=== PATIENT | female | born 1940 | race Caucasian/White ===

== ENCOUNTER 2017-12-02 13:08 | Emergency (ER) | payer OTHER, SELFPAY ==
[2017-12-02] VITALS (7 sets, daily range): BP systolic 156–182; BP diastolic 54–94; PULSE 72–100; RESP 14–28; TEMP 36.9; O2SAT 98–100
--- NOTE | 2017-12-02 14:11 | DI.RAD.S_ITS ---
PROCEDURE: XR CHEST 2V INDICATIONS: shortness of breath TECHNIQUE: 2 views of the chest were acquired. COMPARISON: None. FINDINGS: Surgical changes and devices: Sternotomy mediastinal postoperative changes. Lungs and pleura: No pleural effusions or pneumothorax. Lungs are clear. Hyperinflation most consistent with emphysema. Mediastinum: Mediastinal contours are normal. Heart size is normal. Bones and chest wall: No suspicious bony abnormalities. Soft tissues appear unremarkable. IMPRESSION: No radiographic evidence of acute cardiopulmonary pathology. Hyperinflation most consistent with emphysema. Dictated by: Freddy Figueroa M.D. on 12/02/2017 at 14:39 Approved by: Freddy Figueroa M.D. on 12/02/2017 at 14:40
[2017-12-02 14:46] LABS: Add Manual Diff / Slide Review NO; Basophils Percent Auto 0.8 % (0-2); Eosinophils Percent Auto 0.5 % (2-4); Hematocrit 40.3 % (36-46); Lymphocytes Percent Auto 8.7 % (25-40); Mean Corpuscular HGB Conc 34.6 % (30-36); Mean Corpuscular Hemoglobin 34.7 PG (26-34); Mean Corpuscular Volume 100.2 fL (80-100); Monocytes Percent Auto 8.2 % (3-14); Neutrophils Absolute Auto 4900 /uL (3000-5900); Neutrophils Percent Auto 81.8 % (50-75); Platelet Count 384 X10^3/uL (150-400); Red Blood Cell Count 4.02 X10^6/uL (4.0-5.2); Red Cell Distribution Width 14.5 % (11.6-14.8); White Blood Cell Count 5.9 X10^3/uL (4.5-11.0)
[2017-12-02 14:57] LABS: Alanine Aminotransferase 22 IU/L (9-52); Albumin Globulin Ratio 1.7 (1.0-2.8); Alkaline Phosphatase 109 U/L (38-126); Aspartate Aminotransferase 29 IU/L (14-36); Bilirubin Total 0.6 mg/dL (0.2-1.3); Blood Urea Nitrogen 18 mg/dL (7-17); Calcium 9.4 mg/dL (8.4-10.2); Carbon Dioxide 25 mmol/L (22-32); Chloride 102 mmol/L (98-107); Estimated Glomerular Filt Rate 53.6 mL/min (>60); Globulin 2.9 g/dL (1.7-4.1); Glucose 112 mg/dL (80-110); HEMOLYSIS < 15 (0-50); Potassium 3.5 mmol/L (3.4-5.1); Sodium 140 mmol/L (137-145); Total Protein 7.9 g/dL (6.3-8.2)
[2017-12-02 15:11] LABS: D Dimer < 200 ng/mL (<230)
[2017-12-02 17:10] LABS: Troponin I < 0.012 ng/mL (0.01-0.034)
--- NOTE | 2017-12-02 18:27 | ED_ITS ---
HPI - SOB/Dyspnea General Chief Complaint: Shortness of Breath/Dyspnea Stated Complaint: really nervous and shakey and dizzy History of Present Illness HPI 68-year-old female with hypothyroidism, HTN, and HLD presents for evaluation of intermittent episodes of shortness of breath. Patient reports that for an indeterminate (sometime) she feels short of breath when she is laying supine before falling asleep, this will cause significant anxiety and she will sit up with increased work of breathing before symptoms gradually resolved. Today the patient had an episode while sitting outside, she had markedly increased work of breathing but was without wheezing, denies choking, cough, fevers, chills, chest pain, history of DVT or PE. No history of reactive airway disease. Symptoms have fully resolved at the time of evaluation. Symptoms lasted 30-60 minutes. M/S/F/SocHx notable for: please see HPI; remainder reviewed with patient and in chart. ROS: Negative constitutional, eye, cardiovascular, pulmonary, GI, , MSK, skin , neurologic, psychiatric, endocrine unless noted in the HPI. Exam Gen: Pleasant, non-toxic appearing, resting comfortably. HEENT: NC, AT, PEERL, EOMI, trachea midline. Resp: Clear to auscultation bilaterally, normal work of breathing. Card: RRR with no M/R/G, no crackles in lung bases, no pedal edema, no JVD appreciated. GI: NT/ND Vascular: Both ankles, calves, and thighs of equal size, no calf tenderness to palpation bilaterally. MSK: No chest wall TTP. No visible deformities, strength and tone WNL. Skin: Normal color with no visible lesions. Neuro: AO x 3, no facial asymmetry, vision and hearing WNL. Psych: Mood and affect appropriate. Labs / Imaging (pertinent): WBC 5.9, HB 14.0, sodium 140, potassium 3.5, lactic 1.0, d-dimer <200 troponin (4:30 PM) less than 0.012. EKG: SR at 76 bpm, no [place] segment depressions, no new ST segment changes, new LBBB, or T-wave changes that would suggest acute ischemia. CXR: no radiographic evidence of acute cardiopulmonary pathology. Hyperinflation most consistent with emphysema. MDM Previous chart, nursing note, and vitals reviewed. A: 68-year-old female with hypothyroidism, HTN, and HLD presents for evaluation of intermittent episodes of shortness of breath. DDx: pneumonia, reactive airway disease / COPD / Asthma, bronchitis, pneumothorax, anxiety, PE, CHF, pleural effusion, pericardial effusion, ACS. Evaluation: * Pneumonia - as the CXR is without focal infiltrate and the patient is afebrile and without significant sputum production, doubt pneumonia. * Reactive airway disease / COPD / Asthma - patient with good air movement and an absence of wheezing. * Bronchitis - doubt given the lack of productive cough or systemic symptoms.( suspect bronchitis with - cough > 5 days, absence of fever, wheezing, productive cough, sore throat, rhinorrhea, malaise, headache). * Pneumothorax - no evidence by CXR. * Anxiety - patient clinically without evidence of appreciable anxiety on exam. * PE - low clinical suspicion given history and alternate diagnosis, further risk stratification (e.g.) Well's not indicated. * CHF - no evidence by auscultation, CXR, and absence of pedal edema. * Pleural effusion - CXR without evidence of effusions. * Pericardial effusion - doubt pericardial effusion given an alternate diagnosis , the lack of cardiomegaly on CXR and normal heart sounds. * ACS - doubt ACS given a non-ischemic EKG and negative initial troponin, repeat troponin pending at time of patient care transfer to Dr. Montano, the oncoming overnight provider. Impression: shortness of breath (please reference below for remainder of encounter information) Related Data Home Medications Medication Instructions Recorded Confirmed ferrous sulfate 65 mg PO BID #0 08/29/10 12/02/17 Previous Rx's Medication Instructions Recorded cyanocobalamin (vitamin B-12) 1,000 mcg PO QDAY #30 tab 04/28/17 amlodipine [Norvasc] 10 mg PO Q DAY #90 tab 05/31/17 simvastatin [Zocor] 20 mg PO Q DAY #90 tab 05/31/17 levothyroxine [Synthroid] 75 mcg PO QDAY #90 tab 09/20/17 Allergies Allergy/AdvReac Type Severity Reaction Status Date / Time Penicillins [PENICILLINS] Allergy Unknown CHILDHOOD Verified 12/02/17 13:16 PFSH Surgical History History of tonsillectomy Status post appendectomy Status post arthroscopy Status post colonoscopy Status post hysterectomy Family History Father Diabetes mellitus Hypertension Mother Hypertension Social History Smoking Status: Former smoker Exam Initial Vital Signs Initial Vital Signs: Vital Signs Temperature 98.4 F 12/02/17 13:12 Pulse Rate 100 H 12/02/17 13:12 Respiratory Rate 28 H 12/02/17 13:12 Blood Pressure 182/93 H 12/02/17 13:12 Pulse Oximetry 100 12/02/17 13:12 Course Orders Ordered: ED Orders 12/02/17 14:00 D Dimer Stat 12/02/17 14:11 Consult to Respiratory Therapy Evaluate & Treat XR chest 2V Stat EKG-12 Lead Stat 12/02/17 14:30 Complete Blood Count AUTO DIFF Stat Comprehensive Metabolic Panel Stat Lactate (Lactic Acid) Stat 12/02/17 16:30 Trop I [Troponin I] Stat 12/02/17 18:26 Troponin I Stat Vital Signs - 8 hr 12/02/17 13:12 12/02/17 14:05 12/02/17 15:07 Temperature 98.4 F Pulse Rate 100 H 73 73 Respiratory Rate 28 H 15 18 Blood Pressure 182/93 H Blood Pressure [Right Arm] 169/71 H 158/54 H Pulse Oximetry 100 98 100 12/02/17 15:55 12/02/17 16:56 12/02/17 18:08 Temperature Pulse Rate 80 72 93 H Respiratory Rate 18 28 H 18 Blood Pressure Blood Pressure [Right Arm] 156/75 H 175/76 H 158/80 H Pulse Oximetry 98 99 99 MDM - SOB/Dyspnea Lab Data Result diagrams: 12/02/17 14:30 12/02/17 14:30 Lab Results 12/02/17 12/02/17 12/02/17 Range/Units 14:00 14:30 14:30 WBC 5.9 (4.5-11.0) X10^3/uL RBC 4.02 (4.0-5.2) X10^6/uL Hgb 14.0 (12.0-16.0) g/dL Hct 40.3 (36-46) % MCV 100.2 H (80-100) fL MCH 34.7 H (26-34) PG MCHC 34.6 (30-36) % RDW 14.5 (11.6-14.8) % Plt Count 384 (150-400) X10^3/uL Neut % (Auto) 81.8 H (50-75) % Lymph % (Auto) 8.7 L (25-40) % Dougherty % (Auto) 8.2 (3-14) % Eos % (Auto) 0.5 L (2-4) % Baso % (Auto) 0.8 (0-2) % Neut # (Auto) 4900 (6224-9278) /uL D-Dimer < 200 (<230) ng/mL Sodium 140 (137-145) mmol/L Potassium 3.5 (3.4-5.1) mmol/L Chloride 102 (98-107) mmol/L Carbon Dioxide 25 (22-32) mmol/L BUN 18 H (7-17) mg/dL Creatinine 1.00 (0.52-1.04) mg/dL Estimated GFR 53.6 L (>60) mL/min BUN/Creatinine Ratio 18.0 (6-22) Glucose 112 H (80-110) mg/dL Lactate (0.7-2.1) mmol/L Calcium 9.4 (8.4-10.2) mg/dL Total Bilirubin 0.6 (0.2-1.3) mg/dL AST 29 (14-36) IU/L ALT 22 (9-52) IU/L Alkaline Phosphatase 109 (38-126) U/L Troponin I (0.01-0.034) ng/mL Total Protein 7.9 (6.3-8.2) g/dL Albumin 5.0 (3.5-5.0) g/dL Globulin 2.9 (1.7-4.1) g/dL Albumin/Globulin Ratio 1.7 (1.0-2.8) 12/02/17 12/02/17 Range/Units 14:30 16:30 WBC (4.5-11.0) X10^3/uL RBC (4.0-5.2) X10^6/uL Hgb (12.0-16.0) g/dL Hct (36-46) % MCV (80-100) fL MCH (26-34) PG MCHC (30-36) % RDW (11.6-14.8) % Plt Count (150-400) X10^3/uL Neut % (Auto) (50-75) % Lymph % (Auto) (25-40) % Dougherty % (Auto) (3-14) % Eos % (Auto) (2-4) % Baso % (Auto) (0-2) % Neut # (Auto) (9129-2669) /uL D-Dimer (<230) ng/mL Sodium (137-145) mmol/L Potassium (3.4-5.1) mmol/L Chloride (98-107) mmol/L Carbon Dioxide (22-32) mmol/L BUN (7-17) mg/dL Creatinine (0.52-1.04) mg/dL Estimated GFR (>60) mL/min BUN/Creatinine Ratio (6-22) Glucose (80-110) mg/dL Lactate 1.0 (0.7-2.1) mmol/L Calcium (8.4-10.2) mg/dL Total Bilirubin (0.2-1.3) mg/dL AST (14-36) IU/L ALT (9-52) IU/L Alkaline Phosphatase (38-126) U/L Troponin I < 0.012 (0.01-0.034) ng/mL Total Protein (6.3-8.2) g/dL Albumin (3.5-5.0) g/dL Globulin (1.7-4.1) g/dL Albumin/Globulin Ratio (1.0-2.8) Discharge Plan Departure Prescriptions: No Action ferrous sulfate 325 mg (65 mg iron) Tablet 65 mg PO BID Qty: 0 RF: 0 cyanocobalamin (vitamin B-12) 1,000 MCG tablet extended release 1,000 mcg PO QDAY Qty: 30 RF: 0 amlodipine [Norvasc] 10 MG tablet 10 mg PO Q DAY Qty: 90 RF: 3 simvastatin [Zocor] 20 MG tablet 20 mg PO Q DAY Qty: 90 RF: 3 levothyroxine [Synthroid] 75 mcg tablet 75 mcg PO QDAY Qty: 90 RF: 0
[2017-12-02 19:43] LABS: Troponin I < 0.012 ng/mL (0.01-0.034)
== END 2017-12-02 20:10 | disposition home or self-care (01) ==
PROVIDERS: Emergency Provider Emergency Medicine; PCP Family Medicine
DX: R06.02 Shortness of breath (principal)
CPT/HCPCS: 36415; 36591; 71046; 80053; 83605; 84484; 85025; 85379; 93005; 99283; 99285

== ENCOUNTER → 2017-12-26 09:38 | Outpatient (CLI) | payer OTHER, SELFPAY ==
[2017-12-26 12:00] LABS: Cholesterol 218 mg/dL (140-199); Triglycerides 125 mg/dL (35-150)
[2017-12-26 12:11] LABS: HDL Cholesterol 117 mg/dL (40-60); LDL Cholesterol Calculated 76 mg/dL (<100)
[2017-12-26 12:14] LABS: Free T3, Triiodothyronine Free 1.67 pg/mL (2.77-5.27); Free T4, Direct Thyroxine 0.85 ng/dL (0.78-2.19)
== END ==
PROVIDERS: PCP Family Medicine; Visit Provider Family Medicine
DX: E03.9 Hypothyroidism, unspecified (principal); E78.5 Hyperlipidemia, unspecified
CPT/HCPCS: 36415; 80061; 84439; 84443; 84481

== ENCOUNTER → 2018-02-22 11:56 | Outpatient (CLI) | payer OTHER, SELFPAY ==
--- NOTE | 2018-02-22 12:00 | DI.RAD.S_ITS ---
PROCEDURE: XR TIBIA FIBULA RT 2V INDICATIONS: Soft tissue infection overlying tibia TECHNIQUE: 2 views of the tibia and fibula were acquired. COMPARISON: None. FINDINGS: Bones: No fractures or dislocations. No suspicious bony lesions. No periosteal reaction or osseous erosive changes. Soft tissues: No suspicious soft tissue calcifications or masses. No soft tissue gas. IMPRESSION: No jocelin evidence of osteomyelitis. Plain film radiographs can be insensitive to osteomyelitis during the initial 15 days of the disease process. If there is clinical concern for osteomyelitis, then three-phase nuclear medicine bone scan is warranted. Dictated by: Lyssa Ochoa MD, PhD on 02/22/2018 at 12:07 Approved by: Lyssa Ochoa MD, PhD on 02/22/2018 at 12:08
== END ==
PROVIDERS: PCP Family Medicine; Visit Provider Physician Assistant
DX: L03.115 Cellulitis of right lower limb (principal)
CPT/HCPCS: 73590

== ENCOUNTER → 2018-03-24 09:59 | Outpatient (CLI) | payer OTHER, SELFPAY ==
[2018-03-24 11:43] LABS: Free T3, Triiodothyronine Free 1.65 pg/mL (2.77-5.27); Free T4, Direct Thyroxine 0.89 ng/dL (0.78-2.19)
== END ==
PROVIDERS: PCP Family Medicine; Visit Provider Family Medicine
DX: E03.9 Hypothyroidism, unspecified (principal)
CPT/HCPCS: 36415; 84439; 84443; 84481

== ENCOUNTER → 2018-03-26 16:16 | Outpatient (CLI) | payer OTHER, SELFPAY | PROVIDERS: PCP Family Medicine; Visit Provider Physician Assistant | DX: R10.9 Unspecified abdominal pain (principal) | CPT/HCPCS: 87086 ==

== ENCOUNTER → 2018-05-26 09:18 | Outpatient (CLI) | payer OTHER, SELFPAY ==
[2018-05-26 09:56] LABS: Add Manual Diff / Slide Review NO; Basophils Absolute Auto 0 /uL (0-100); Basophils Percent Auto 1.2 % (0-2); Eosinophils Absolute Auto 100 /uL (0-450); Eosinophils Percent Auto 1.5 % (2-4); Hematocrit 37.5 % (36-46); Hemoglobin 12.3 g/dL (12.0-16.0); Lymphocytes Absolute Auto 600 /uL (1100-4500); Lymphocytes Percent Auto 13.6 % (25-40); Mean Corpuscular HGB Conc 32.8 % (30-36); Mean Corpuscular Hemoglobin 31.8 PG (26-34); Monocytes Absolute Auto 400 /uL (0-900); Monocytes Percent Auto 9.8 % (3-14); Neutrophils Absolute Auto 3100 /uL (1500-7000); Neutrophils Percent Auto 73.9 % (50-75); Platelet Count 379 X10^3/uL (150-400); Red Blood Cell Count 3.87 X10^6/uL (4.0-5.2); Red Cell Distribution Width 13.7 % (11.6-14.8); White Blood Cell Count 4.2 X10^3/uL (4.5-11.0)
[2018-05-26 10:21] LABS: Alanine Aminotransferase 27 IU/L (9-52); Albumin 4.6 g/dL (3.5-5.0); Albumin Globulin Ratio 1.6 (1.0-2.8); Alkaline Phosphatase 87 U/L (38-126); Aspartate Aminotransferase 33 IU/L (14-36); Bilirubin Total 0.4 mg/dL (0.2-1.3); Blood Urea Nitrogen 23 mg/dL (7-17); Calcium 9.1 mg/dL (8.4-10.2); Carbon Dioxide 27 mmol/L (22-32); Chloride 103 mmol/L (98-107); Cholesterol 188 mg/dL (140-199); Estimated Glomerular Filt Rate 53.5 mL/min (>60); Globulin 2.8 g/dL (1.7-4.1); Glucose 107 mg/dL (80-110); HDL Cholesterol 92 mg/dL (40-60); HEMOLYSIS < 15 (0-50); LDL Cholesterol Calculated 71 mg/dL (<100); Potassium 3.7 mmol/L (3.4-5.1); Sodium 141 mmol/L (137-145); Total Protein 7.4 g/dL (6.3-8.2); Triglycerides 127 mg/dL (35-150)
[2018-05-26 10:54] LABS: HEMOLYSIS < 15 (0-50); Iron 40 ug/dL (37-170)
[2018-05-26 11:06] LABS: Percent Iron Saturation 10 % (15-50); Total Iron Binding Capacity 384 ug/dL (265-497); Transferrin 326 mg/dL (206-381)
[2018-05-26 11:15] LABS: Free T4, Direct Thyroxine 1.62 ng/dL (0.78-2.19)
[2018-05-26 11:25] LABS: Folate 7.1 ng/mL (2.76-20.0); Vitamin B12 815 pg/mL (239-931)
[2018-05-26 13:29] LABS: Appearance Urine UA CLEAR; Bilirubin Urine UA NEGATIVE (NEGATIVE); Color Urine UA YELLOW; Glucose Urine UA NEGATIVE (Negative); Ketones Urine UA NEGATIVE (NEGATIVE); Leukocyte Esterase Urine UA NEGATIVE (NEGATIVE); Nitrite Urine UA NEGATIVE (Negative); Occult Blood Urine UA NEGATIVE (Negative); Protein Urine UA NEGATIVE (Negative); Specific Gravity Urine UA 1.015 (1.000-1.035); Urobilinogen Urine UA 0.2 E.U./dL (0.2)
== END ==
PROVIDERS: PCP Family Medicine; Visit Provider Family Medicine
DX: D64.9 Anemia, unspecified (principal); E03.9 Hypothyroidism, unspecified; E78.5 Hyperlipidemia, unspecified; Z87.19 Personal history of other diseases of the digestive system
CPT/HCPCS: 36415; 80053; 80061; 81003; 82607; 82746; 83540; 83550; 84439; 84443; 84481; 85025

== ENCOUNTER → 2018-05-30 11:23 | Outpatient (CLI) | payer OTHER, SELFPAY ==
[2018-05-30 13:37] LABS: Occult Blood 1 Negative (Negative)
== END ==
PROVIDERS: PCP Family Medicine; Visit Provider Family Medicine
DX: D64.9 Anemia, unspecified (principal); Z87.19 Personal history of other diseases of the digestive system
CPT/HCPCS: 82270

== ENCOUNTER → 2019-01-21 09:22 | Outpatient (CLI) | payer OTHER, SELFPAY ==
[2019-01-21 11:40] LABS: Free T3, Triiodothyronine Free 4.93 pg/mL (2.77-5.27); Free T4, Direct Thyroxine 2.46 ng/dL (0.78-2.19)
[2019-01-21 11:54] LABS: Thyroid Stimulating Hormone < 0.02 uIU/mL (0.47-4.68)
== END ==
PROVIDERS: PCP Family Medicine; Visit Provider Family Medicine
DX: E03.9 Hypothyroidism, unspecified (principal)
CPT/HCPCS: 84439; 84443; 84481

== ENCOUNTER → 2019-06-10 09:02 | Outpatient (CLI) | payer OTHER, SELFPAY ==
[2019-06-10 10:07] LABS: Add Manual Diff / Slide Review NO; Basophils Absolute Auto 0 /uL (0-100); Basophils Percent Auto 1.1 % (0-2); Eosinophils Absolute Auto 100 /uL (0-450); Eosinophils Percent Auto 2.2 % (2-4); Hematocrit 38.8 % (36-46); Hemoglobin 13.3 g/dL (12.0-16.0); Lymphocytes Absolute Auto 800 /uL (1100-4500); Lymphocytes Percent Auto 22.1 % (25-40); Mean Corpuscular HGB Conc 34.1 % (30-36); Mean Corpuscular Hemoglobin 31.6 PG (26-34); Mean Corpuscular Volume 92.5 fL (80-100); Monocytes Absolute Auto 400 /uL (0-900); Monocytes Percent Auto 11.6 % (3-14); Neutrophils Absolute Auto 2200 /uL (1500-7000); Platelet Count 308 X10^3/uL (150-400); White Blood Cell Count 3.5 X10^3/uL (4.5-11.0)
[2019-06-10 10:16] LABS: Alanine Aminotransferase 15 IU/L (<35); Albumin 4.6 g/dL (3.5-5.0); Albumin Globulin Ratio 1.5 (1.0-2.8); Alkaline Phosphatase 149 U/L (38-126); Aspartate Aminotransferase 26 IU/L (14-36); Bilirubin Total 0.6 mg/dL (0.2-1.3); Blood Urea Nitrogen 20 mg/dL (7-17); Calcium 9.5 mg/dL (8.4-10.2); Carbon Dioxide 25 mmol/L (22-32); Chloride 105 mmol/L (98-107); Cholesterol 215 mg/dL (140-199); Estimated Glomerular Filt Rate 53.3 mL/min (>60); Glucose 115 mg/dL (80-110); HDL Cholesterol 97 mg/dL (40-60); HEMOLYSIS < 15 (0-50); LDL Cholesterol Calculated 80 mg/dL (<100); Potassium 3.6 mmol/L (3.4-5.1); Sodium 140 mmol/L (137-145); Total Protein 7.6 g/dL (6.3-8.2); Triglycerides 188 mg/dL (35-150)
[2019-06-10 10:59] LABS: Free T3, Triiodothyronine Free 3.69 pg/mL (2.77-5.27)
[2019-06-10 11:13] LABS: Thyroid Stimulating Hormone < 0.02 uIU/mL (0.47-4.68)
== END ==
PROVIDERS: Family Medicine; PCP Nurse Practitioner; Visit Provider Nurse Practitioner
DX: D64.9 Anemia, unspecified (principal); E03.9 Hypothyroidism, unspecified; E78.5 Hyperlipidemia, unspecified; I10 Essential (primary) hypertension
CPT/HCPCS: 36415; 80053; 80061; 84439; 84443; 84481; 85025

== ENCOUNTER → 2019-10-28 09:22 | Outpatient (CLI) | payer OTHER, SELFPAY ==
[2019-10-28 11:00] LABS: Alanine Aminotransferase 13 IU/L (<35); Albumin 4.6 g/dL (3.5-5.0); Albumin Globulin Ratio 1.8 (1.0-2.8); Alkaline Phosphatase 146 U/L (38-126); Aspartate Aminotransferase 26 IU/L (14-36); BUN Creatinine Ratio 18.4 (6-22); Bilirubin Total 0.5 mg/dL (0.2-1.3); Blood Urea Nitrogen 18 mg/dL (7-17); Calcium 9.6 mg/dL (8.4-10.2); Carbon Dioxide 24 mmol/L (22-32); Chloride 104 mmol/L (98-107); Cholesterol 192 mg/dL (140-199); Estimated Glomerular Filt Rate 54.6 mL/min (>60); Globulin 2.5 g/dL (1.7-4.1); Glucose 105 mg/dL (80-110); HDL Cholesterol 99 mg/dL (40-60); HEMOLYSIS < 15 (0-50); LDL Cholesterol Calculated 68 mg/dL (<100); Potassium 4.3 mmol/L (3.4-5.1); Sodium 138 mmol/L (137-145); Total Protein 7.1 g/dL (6.3-8.2); Triglycerides 123 mg/dL (35-150)
[2019-10-28 11:09] LABS: Free T3, Triiodothyronine Free 2.96 pg/mL (2.77-5.27); Free T4, Direct Thyroxine 1.39 ng/dL (0.78-2.19)
[2019-10-28 11:22] LABS: Thyroid Stimulating Hormone 0.24 uIU/mL (0.47-4.68)
== END ==
PROVIDERS: PCP Nurse Practitioner; Referring Provider Nurse Practitioner; Visit Provider Nurse Practitioner
DX: D64.9 Anemia, unspecified (principal); E03.9 Hypothyroidism, unspecified; E78.5 Hyperlipidemia, unspecified; I10 Essential (primary) hypertension; R89.9 Unspecified abnormal finding in specimens from other organs, systems and tissues
CPT/HCPCS: 36415; 80053; 80061; 84439; 84443; 84481

== ENCOUNTER → 2020-02-09 08:48 | Outpatient (CLI) | payer OTHER, SELFPAY ==
[2020-02-09 10:24] LABS: Thyroid Stimulating Hormone 2.15 uIU/mL (0.47-4.68)
[2020-04-06 07:08] LABS: Fecal Immunochemical Test Positive (Negative)
== END ==
PROVIDERS: PCP Nurse Practitioner; Referring Provider Nurse Practitioner; Visit Provider Nurse Practitioner
DX: E03.9 Hypothyroidism, unspecified (principal); Z79.899 Other long term (current) drug therapy
CPT/HCPCS: 36415; 82274; 84443

== ENCOUNTER 2020-03-24 16:49 | Emergency (ER) | payer OTHER, SELFPAY ==
[2020-03-24] VITALS (7 sets, daily range): BP systolic 162–194; BP diastolic 69–84; PULSE 82–96; RESP 12–28; TEMP 36.8; O2SAT 94–100
--- NOTE | 2020-03-24 17:04 | ED_ITS ---
HPI - Anxiety <Keren Licona, DO - Last Filed: 03/28/20 08:10> General Chief Complaint: Anxiety Stated Complaint: panic attack Time Seen by Provider: 03/24/20 17:04 Source: patient Mode of arrival: Wheelchair Limitations: no limitations History of Present Illness HPI narrative: 79-year-old female comes to the emergency department complaint of anxiety. Patient states she feels nervous, jittery, anxious and just not herself. She noticed a little bit yesterday but mostly today. She states she does not really have any stressors or anything that should make her feel this way. She and her son live together. She denies any headache, vision changes, no chest pain or shortness of breath. No nausea, no vomiting no diarrhea or constipation. No frequency, dysuria or urgency. No new numbness, tingling or weakness. She denies any issues with rashes. She will get lightheaded when she goes from a sitting or lying to standing position quickly this is been a longstanding issue. She does feel a little lightheaded at times today, she states that we for just a 2nd and then will quickly go away. She does not feel like she is going to pass out, does not feeling vertigo just lightheaded or like a buzzing in her head. She does take medication for dyslipidemia, thyroid and hypertension. She states she does have some memory issues. She has had appendectomy and carotid endarterectomy. No tobacco, 1 alcoholic drink daily, no illicit. Related Data Previous Rx's Medication Instructions Recorded amlodipine 10 mg tablet 10 mg PO Q DAY #90 tab 02/18/20 cyanocobalamin (vitamin B-12) 1,000 mcg PO DAILY #90 cap 02/18/20 1,000 mcg capsule donepezil 5 mg tablet 5 mg PO DAILY #90 tab 02/18/20 ferrous sulfate 325 mg (65 mg 325 mg PO BID #180 tab 02/18/20 iron) tablet levothyroxine 75 mcg capsule 75 mcg PO DAILY #90 cap 02/18/20 omeprazole 20 mg capsule,delayed 20 mg PO DAILY #90 cap 02/18/20 release simvastatin 20 mg tablet 20 mg PO Q DAY #90 tab 02/18/20 Allergies Allergy/AdvReac Type Severity Reaction Status Date / Time Penicillins [PENICILLINS] Allergy Unknown CHILDHOOD Verified 03/26/20 11:06 Review of Systems <Keren Licona DO - Last Filed: 03/28/20 08:10> Review of Systems ROS Unobtainable: All systems reviewed & are unremarkable except as noted in HPI and below Patient History <Keren Licona DO - Last Filed: 03/28/20 08:10> Medical History Anemia Frequent UTI Hyperlipemia Hypertension Hypothyroidism Other senior living (current) drug therapy Surgical History History of tonsillectomy Hx of hand surgery (09/2015) Status post appendectomy Status post arthroscopy Status post colonoscopy Status post hysterectomy Family History Father Diabetes mellitus Hypertension Mother Hypertension Social History Smoking Status: Former smoker Smoking Status: Former smoker alcohol intake frequency: 0-2 drinks per day Substance Use Type: does not use Exam <Keren Licona DO - Last Filed: 03/28/20 08:10> Narrative Exam Narrative: GENERAL: Alert and oriented x three, thin, well-appearing elderly female HEENT: Head normocephalic, atraumatic, EOMI, pupils reactive, face symmetric, moist mucous membranes NECK: Supple, full range of motion, patient has healed incision from her lower neck to the anterior chest. CARDIOVASCULAR: Regular rate and rhythm without murmurs, rubs or gallops. RESPIRATORY: Breath sounds equal bilaterally, no wheezes rales or rhonchi. ABDOMEN: Soft, nontender. Normoactive bowel sounds all 4 quadrants. No guarding or rebound, rigidity, no mass : No CVA tenderness EXTREMITIES: Normal range of motion, no clubbing or edema. Neurovascularly intact NEUROLOGICAL: Cranial nerves II through XII grossly intact. Moving all extremities. SKIN: Warm, dry, no petechiae, no rashes or lesions. Initial Vital Signs Initial Vital Signs: Vital Signs Temperature 98.2 F 03/24/20 16:50 Pulse Rate 91 H 03/24/20 16:50 Respiratory Rate 28 H 03/24/20 16:50 Blood Pressure 194/84 H 03/24/20 16:50 Pulse Oximetry 100 03/24/20 16:50 <Irma Manriquez MD - Last Filed: 03/24/20 20:19> Initial Vital Signs Initial Vital Signs: Vital Signs Temperature 98.2 F 03/24/20 16:50 Pulse Rate 91 H 03/24/20 16:50 Respiratory Rate 28 H 03/24/20 16:50 Blood Pressure 194/84 H 03/24/20 16:50 Pulse Oximetry 100 03/24/20 16:50 Course <Keren Licona DO - Last Filed: 03/28/20 08:10> Course Course Narrative: Patient comes to department with complaint of anxiety. Patient has vague and type B type symptoms. She is hypertensive in the department but no other major change. Patient signed out to Dr. Manriquez while awaiting urine sample for evaluation. Orders Ordered: Discontinued Medications Sodium Chloride (Normal Saline 0.9%) 1,000 mls @ 1,000 mls/hr IV BOLUS ONE Stop: 03/24/20 18:19 Last Infusion: 03/24/20 18:55 Dose: 0 mls/hr Documented by: Admin: 03/24/20 17:51 Dose: 1,000 mls/hr Documented by: JERILYN Vital Signs Vital signs: Vital Signs - 8 hr 03/24/20 16:50 03/24/20 17:57 03/24/20 18:00 Temperature 98.2 F Pulse Rate 91 H 95 H 89 Respiratory Rate 28 H 19 19 Blood Pressure 194/84 H 166/79 H 166/79 H Pulse Oximetry 100 99 100 03/24/20 18:30 03/24/20 19:00 03/24/20 19:04 Temperature Pulse Rate 82 84 82 Respiratory Rate 12 Blood Pressure 163/69 H Pulse Oximetry 100 94 99 03/24/20 19:25 Temperature Pulse Rate 96 H Respiratory Rate Blood Pressure 162/73 H Pulse Oximetry 98 <Irma Manriquez MD - Last Filed: 03/24/20 20:19> Orders Ordered: Discontinued Medications Sodium Chloride (Normal Saline 0.9%) 1,000 mls @ 1,000 mls/hr IV BOLUS ONE Stop: 03/24/20 18:19 Last Infusion: 03/24/20 18:55 Dose: 0 mls/hr Documented by: Admin: 03/24/20 17:51 Dose: 1,000 mls/hr Documented by: JERILYN Vital Signs Vital signs: Vital Signs - 8 hr 03/24/20 16:50 03/24/20 17:57 03/24/20 18:00 Temperature 98.2 F Pulse Rate 91 H 95 H 89 Respiratory Rate 28 H 19 19 Blood Pressure 194/84 H 166/79 H 166/79 H Pulse Oximetry 100 99 100 03/24/20 18:30 03/24/20 19:00 03/24/20 19:04 Temperature Pulse Rate 82 84 82 Respiratory Rate 12 Blood Pressure 163/69 H Pulse Oximetry 100 94 99 03/24/20 19:25 Temperature Pulse Rate 96 H Respiratory Rate Blood Pressure 162/73 H Pulse Oximetry 98 MDM - Anxiety <Keren Licona, - Last Filed: 03/28/20 08:10> Lab Data Result diagrams: 03/24/20 17:04 03/24/20 17:04 Labs: Lab Results 03/24/20 03/24/20 03/24/20 Range/Units 17:04 17:04 17:04 WBC 5.6 (4.5-11.0) X10^3/uL RBC 3.89 L (4.0-5.2) X10^6/uL Hgb 10.2 L (12.0-16.0) g/dL Hct 32.3 L (36-46) % MCV 83.1 (80-100) fL MCH 26.1 (26-34) PG MCHC 31.5 (30-36) % RDW 15.6 H (11.6-14.8) % Plt Count 411 H (150-400) X10^3/uL Neut % (Auto) 75.1 H (50-75) % Lymph % (Auto) 14.1 L (25-40) % Carbon % (Auto) 9.0 (3-14) % Eos % (Auto) 0.8 L (2-4) % Baso % (Auto) 1.0 (0-2) % Neut # (Auto) 4200 (8542-9289) /uL Lymph # (Auto) 800 L (6791-7810) /uL Carbon # (Auto) 500 (0-900) /uL Eos # (Auto) 0 (0-450) /uL Baso # (Auto) 100 (0-100) /uL Sodium 136 L (137-145) mmol/L Potassium 3.7 (3.4-5.1) mmol/L Chloride 104 (98-107) mmol/L Carbon Dioxide 23 (22-32) mmol/L BUN 17 (7-17) mg/dL Creatinine 1.09 H (0.52-1.04) mg/dL Estimated GFR 48.2 L (>60) mL/min BUN/Creatinine Ratio 15.6 (6-22) Glucose 125 H (80-110) mg/dL Calcium 9.5 (8.4-10.2) mg/dL Troponin I < 0.012 (0.01-0.034) ng/mL TSH 6.72 H (0.47-4.68) uIU/mL COVID-19 PCR (Negative) 03/24/20 Range/Units 17:50 WBC (4.5-11.0) X10^3/uL RBC (4.0-5.2) X10^6/uL Hgb (12.0-16.0) g/dL Hct (36-46) % MCV (80-100) fL MCH (26-34) PG MCHC (30-36) % RDW (11.6-14.8) % Plt Count (150-400) X10^3/uL Neut % (Auto) (50-75) % Lymph % (Auto) (25-40) % Carbon % (Auto) (3-14) % Eos % (Auto) (2-4) % Baso % (Auto) (0-2) % Neut # (Auto) (6235-1908) /uL Lymph # (Auto) (1598-9796) /uL Carbon # (Auto) (0-900) /uL Eos # (Auto) (0-450) /uL Baso # (Auto) (0-100) /uL Sodium (137-145) mmol/L Potassium (3.4-5.1) mmol/L Chloride (98-107) mmol/L Carbon Dioxide (22-32) mmol/L BUN (7-17) mg/dL Creatinine (0.52-1.04) mg/dL Estimated GFR (>60) mL/min BUN/Creatinine Ratio (6-22) Glucose (80-110) mg/dL Calcium (8.4-10.2) mg/dL Troponin I (0.01-0.034) ng/mL TSH (0.47-4.68) uIU/mL COVID-19 PCR Negative (Negative) Urine Dip Bedside Urine Glucose Negative Bedside Urine Bilirubin - Negative Bedside Urine Ketone - Negative Urine Specific [place] 1.015 Bedside Urine Occult Blood - Negative Bedside Urine pH 6.0 Bedside Urine Protein - Negative Bedside Urine Urobilinogen - Negative Bedside Urine Nitrite - Negative Bedside Urine Leukocytes - Negative Esterase ECG Data Attestation: I personally reviewed and interpreted this ECG as follows: Prior ECG tracings: available for review Interpretation: Sinus rhythm for rate of 83, NE 137 QRS of 113 and QTC of 426 occasional supraventricular complex. Patient appears have a little bit of depression in V5 6 but appears somewhat similar to 12/02/2017 EKG. T-waves are more peaked in the lateral leads than on prior. <Irma Manriquez MD - Last Filed: 03/24/20 20:19> Medical Records Attestation: I reviewed the patient's medical records. Lab Data Attestation: I reviewed the patient's lab results. Labs: Lab Results 03/24/20 03/24/20 03/24/20 Range/Units 17:04 17:04 17:04 WBC 5.6 (4.5-11.0) X10^3/uL RBC 3.89 L (4.0-5.2) X10^6/uL Hgb 10.2 L (12.0-16.0) g/dL Hct 32.3 L (36-46) % MCV 83.1 (80-100) fL MCH 26.1 (26-34) PG MCHC 31.5 (30-36) % RDW 15.6 H (11.6-14.8) % Plt Count 411 H (150-400) X10^3/uL Neut % (Auto) 75.1 H (50-75) % Lymph % (Auto) 14.1 L (25-40) % Carbon % (Auto) 9.0 (3-14) % Eos % (Auto) 0.8 L (2-4) % Baso % (Auto) 1.0 (0-2) % Neut # (Auto) 4200 (3134-6946) /uL Lymph # (Auto) 800 L (0064-8642) /uL Carbon # (Auto) 500 (0-900) /uL Eos # (Auto) 0 (0-450) /uL Baso # (Auto) 100 (0-100) /uL Sodium 136 L (137-145) mmol/L Potassium 3.7 (3.4-5.1) mmol/L Chloride 104 (98-107) mmol/L Carbon Dioxide 23 (22-32) mmol/L BUN 17 (7-17) mg/dL Creatinine 1.09 H (0.52-1.04) mg/dL Estimated GFR 48.2 L (>60) mL/min BUN/Creatinine Ratio 15.6 (6-22) Glucose 125 H (80-110) mg/dL Calcium 9.5 (8.4-10.2) mg/dL Troponin I < 0.012 (0.01-0.034) ng/mL TSH 6.72 H (0.47-4.68) uIU/mL COVID-19 PCR (Negative) 03/24/20 Range/Units 17:50 WBC (4.5-11.0) X10^3/uL RBC (4.0-5.2) X10^6/uL Hgb (12.0-16.0) g/dL Hct (36-46) % MCV (80-100) fL MCH (26-34) PG MCHC (30-36) % RDW (11.6-14.8) % Plt Count (150-400) X10^3/uL Neut % (Auto) (50-75) % Lymph % (Auto) (25-40) % Carbon % (Auto) (3-14) % Eos % (Auto) (2-4) % Baso % (Auto) (0-2) % Neut # (Auto) (0069-7420) /uL Lymph # (Auto) (7961-5876) /uL Carbon # (Auto) (0-900) /uL Eos # (Auto) (0-450) /uL Baso # (Auto) (0-100) /uL Sodium (137-145) mmol/L Potassium (3.4-5.1) mmol/L Chloride (98-107) mmol/L Carbon Dioxide (22-32) mmol/L BUN (7-17) mg/dL Creatinine (0.52-1.04) mg/dL Estimated GFR (>60) mL/min BUN/Creatinine Ratio (6-22) Glucose (80-110) mg/dL Calcium (8.4-10.2) mg/dL Troponin I (0.01-0.034) ng/mL TSH (0.47-4.68) uIU/mL COVID-19 PCR Negative (Negative) Urine Dip Bedside Urine Glucose Negative Bedside Urine Bilirubin - Negative Bedside Urine Ketone - Negative Urine Specific [place] 1.015 Bedside Urine Occult Blood - Negative Bedside Urine pH 6.0 Bedside Urine Protein - Negative Bedside Urine Urobilinogen - Negative Bedside Urine Nitrite - Negative Bedside Urine Leukocytes - Negative Esterase MDM Narrative Medical decision making narrative: 79-year-old woman presents with increasing anxiety. Medical workup is entirely unremarkable. No evidence of urinary tract infection either. After her evaluation in the emergency room she is feeling better at this time and feel safe and stable for home discharge. Discharge Plan Departure Patient Disposition: Home Clinical Impression: Acute anxiety Instructions: DI for Anxiety -- Adult Activity Restrictions/Additional Instructions: Thank you for coming in today Your workup today did not suggest any acute medical abnormalities. I suspect that, as you have suggested, things have simply piled up and you are feeling more anxious today. I hope the remainder of your evening goes better. If you have worsening symptoms or concerns please feel free to return to the emergency department and I am happy to re-evaluate Prescriptions: No Action amlodipine [Norvasc] 10 mg tablet 10 mg PO Q DAY Qty: 90 RF: 3 donepezil [Aricept] 5 mg tablet 5 mg PO DAILY Qty: 90 RF: 3 levothyroxine 75 mcg capsule 75 mcg PO DAILY Qty: 90 RF: 3 omeprazole 20 mg capsule,delayed release(DR/EC) 20 mg PO DAILY Qty: 90 RF: 3 simvastatin [Zocor] 20 mg tablet 20 mg PO Q DAY Qty: 90 RF: 3 ferrous sulfate [Feosol] 325 mg (65 mg iron) tablet 325 mg PO BID Qty: 180 RF: 3 cyanocobalamin (vitamin B-12) 1,000 mcg capsule 1,000 mcg PO DAILY Qty: 90 RF: 3 Referrals: Nisreen Rose ARNP [Primary Care Provider] -
--- NOTE | 2020-03-24 17:20 | DI.RAD.S_ITS ---
PROCEDURE: XR CHEST 1V INDICATIONS: anxiety, lightheaded TECHNIQUE: One view of the chest was acquired. COMPARISON: [facility], CR, XR CHEST 2V, 12/02/2017, 14:17. FINDINGS: Surgical changes and devices: Median sternotomy wires are again noted. Lungs and pleura: Lungs are clear. No pleural effusions or pneumothorax. Mediastinum: Mediastinal contours appear normal. Heart size is normal. Bones and chest wall: No suspicious bony lesions. Overlying soft tissues appear unremarkable. IMPRESSION: No acute cardiopulmonary pathology. Dictated by: Wyatt Charles M.D. on 03/24/2020 at 16:44 Approved by: Wyatt Charles M.D. on 03/24/2020 at 16:46
[2020-03-24 17:28] LABS: Add Manual Diff / Slide Review NO; Basophils Absolute Auto 100 /uL (0-100); Eosinophils Absolute Auto 0 /uL (0-450); Eosinophils Percent Auto 0.8 % (2-4); Hematocrit 32.3 % (36-46); Hemoglobin 10.2 g/dL (12.0-16.0); Lymphocytes Absolute Auto 800 /uL (1100-4500); Lymphocytes Percent Auto 14.1 % (25-40); Mean Corpuscular HGB Conc 31.5 % (30-36); Mean Corpuscular Hemoglobin 26.1 PG (26-34); Mean Corpuscular Volume 83.1 fL (80-100); Monocytes Absolute Auto 500 /uL (0-900); Neutrophils Absolute Auto 4200 /uL (1500-7000); Neutrophils Percent Auto 75.1 % (50-75); Platelet Count 411 X10^3/uL (150-400); Red Blood Cell Count 3.89 X10^6/uL (4.0-5.2); Red Cell Distribution Width 15.6 % (11.6-14.8); White Blood Cell Count 5.6 X10^3/uL (4.5-11.0)
[2020-03-24 17:33] LABS: BUN Creatinine Ratio 15.6 (6-22); Blood Urea Nitrogen 17 mg/dL (7-17); Calcium 9.5 mg/dL (8.4-10.2); Carbon Dioxide 23 mmol/L (22-32); Chloride 104 mmol/L (98-107); Estimated Glomerular Filt Rate 48.2 mL/min (>60); Glucose 125 mg/dL (80-110); HEMOLYSIS < 15 (0-50); Potassium 3.7 mmol/L (3.4-5.1); Sodium 136 mmol/L (137-145)
[2020-03-24 17:45] LABS: Troponin I < 0.012 ng/mL (0.01-0.034)
[2020-03-24] MEDS: SODIUM CHLORIDE 0.9% 1,000 ML 1000 ML IV (17:51)
[2020-03-24 18:04] LABS: Thyroid Stimulating Hormone 6.72 uIU/mL (0.47-4.68)
[2020-03-24 18:17] LABS: COVID19 -Nasal RAPID Negative (Negative)
== END 2020-03-24 20:29 | disposition home or self-care (01) ==
PROVIDERS: Emergency Provider Emergency Medicine; PCP Nurse Practitioner
DX: F41.9 Anxiety disorder, unspecified (principal); R42 Dizziness and giddiness
CPT/HCPCS: 36415; 71045; 80048; 81003; 84443; 84484; 85025; 87635; 93005; 96360; 99284

== ENCOUNTER 2020-03-26 10:56 | Emergency (ER) | payer OTHER, SELFPAY ==
[2020-03-26] VITALS (8 sets, daily range): BP systolic 145–184; BP diastolic 65–84; PULSE 68–102; RESP 18–29; TEMP 36.7; O2SAT 98–100; BMI 19.5
--- NOTE | 2020-03-26 11:36 | ED.DIZZY ---
HPI - Dizziness General Chief Complaint: Dizziness Stated Complaint: dizzy/ chills Time Seen by Provider: 03/26/20 11:04 Source: patient Mode of arrival: Wheelchair Limitations: no limitations History of Present Illness HPI Narrative: Patient is an 79-year-old female who presents with lightheadedness and anxiety. She was seen evaluated here 2 days ago with anxiety she had a chest pain workup which was negative and she was discharged home. She says over the past few days every time she sits up or stands up she gets extremely dizzy and lightheaded and she has to go slow. She denies any chest on or shortness of breath or fevers. She has never had anxiety in the past. She is unsure what is triggering this. However she is not feeling lightheaded. She denies any numbness tingling weakness or focal deficits MD complaint: lightheadedness Timing: sudden onset and unsure Description: sense of movement History of similar episodes: No History of trauma: No Related Data Previous Rx's Medication Instructions Recorded amlodipine 10 mg tablet 10 mg PO Q DAY #90 tab 02/18/20 cyanocobalamin (vitamin B-12) 1,000 mcg PO DAILY #90 cap 02/18/20 1,000 mcg capsule donepezil 5 mg tablet 5 mg PO DAILY #90 tab 02/18/20 ferrous sulfate 325 mg (65 mg 325 mg PO BID #180 tab 02/18/20 iron) tablet levothyroxine 75 mcg capsule 75 mcg PO DAILY #90 cap 02/18/20 omeprazole 20 mg capsule,delayed 20 mg PO DAILY #90 cap 02/18/20 release simvastatin 20 mg tablet 20 mg PO Q DAY #90 tab 02/18/20 Allergies Allergy/AdvReac Type Severity Reaction Status Date / Time Penicillins [PENICILLINS] Allergy Unknown CHILDHOOD Verified 03/26/20 11:06 Review of Systems Review of Systems ROS Unobtainable: All systems reviewed & are unremarkable except as noted in HPI and below Constitutional Constitutional: Denies chills, Denies fever(s), Denies lethargy and Denies weakness ENT Ears, Nose, Mouth, and Throat: Denies change in voice, Reports dizziness, Denies neck pain and Denies sore throat Cardiovascular Cardiovascular: Denies chest pain, Denies irregular heart rhythm, Denies lightheadedness, Denies palpitations, Denies dyspnea, Denies dyspnea on exertion and Denies orthopnea Respiratory Respiratory: Denies cough, Denies dyspnea, Denies dyspnea on exertion and Denies wheezing Gastrointestinal Gastrointestinal: Denies abdominal pain, Denies change in bowel habits, Denies diarrhea, Denies nausea and Denies vomiting Musculoskeletal Musculoskeletal: Denies back pain and Denies neck pain Integumentary/Breasts Skin/Breast: Denies pruritus, Denies erythema, Denies rash and Denies wounds Neurologic Neurologic: Reports dizziness and Denies weakness Endocrine Endocrine: Denies palpitations Allergic/Immunologic Allergic/Immunologic: Denies wheezing Patient History Medical History Anemia (Resolved) Frequent UTI (Chronic) Hyperlipemia (Chronic) Hypertension (Chronic) Hypothyroidism (Chronic) Other residential (current) drug therapy (Acute) Surgical History History of tonsillectomy Hx of hand surgery (Resolved 09/2015) Status post appendectomy Status post arthroscopy Status post colonoscopy Status post hysterectomy Family History Father Diabetes mellitus Hypertension Mother Hypertension Social History Smoking Status: Former smoker Smoking Status: Former smoker alcohol intake frequency: holidays/special occasions only Substance Use Type: does not use Exam Initial Vital Signs Initial Vital Signs: Vital Signs Temperature 98.1 F 03/26/20 11:00 Pulse Rate 102 H 03/26/20 11:00 Respiratory Rate 25 H 03/26/20 11:00 Blood Pressure 180/84 H 03/26/20 11:00 Pulse Oximetry 98 03/26/20 11:00 GENERAL: Anxious elderly female in mild distress HEENT: Head atraumatic,EOMI, pupils reactive, face symmetric, [moist] mucous membranes CARDIOVASCULAR: Regular rate and rhythm without murmurs, rubs or gallops. RESPIRATORY: Breath sounds equal bilaterally, no wheezes rales or rhonchi. ABDOMEN: Soft, nontender. Normoactive bowel sounds all 4 quadrants. No guarding or rebound. EXTREMITIES: Normal range of motion, no clubbing or edema. Neurovascularly intact NEUROLOGICAL: Alert and oriented x4.Normal gait and speech. Cranial nerves II through XII grossly intact. [Good [id number], good [id number], strength equal bilaterally, no dysarthria or aphasia, sensation in tact to soft touch bilaterally, no visual changes, no facial droop] SKIN: Warm, dry, no laceration, no petechiae, no rashes or lesions. Scores NIH Stroke Scale Level of Conciousness: Alert, keenly responsive Ask month/age: Answers both questions correctly. Open/close eyes, close hand: Performs both tasks correctly Best gaze horizontal: Normal Visual billy: No visual loss Facial palsy: Normal symetrical movement Left arm drift: No drift for full 10 sec Right arm drift: No drift for full 10 sec Left leg drift: No drift for full 5 sec Right leg drift: No drift for full 5 sec Limb ataxia: Absent Sensory on face/arms/legs: Normal, no sensory loss Best language: No aphasia, normal Dysarthria: Normal Extinction or inattention: No abnormality Total NIH Stroke scale score: 0 Course Orders Ordered: Discontinued Medications Sodium Chloride (Normal Saline 0.9%) 1,000 mls @ 1,000 mls/hr IV BOLUS ONE Stop: 03/26/20 12:35 Last Infusion: 03/26/20 13:57 Dose: 0 mls/hr Documented by: Admin: 03/26/20 12:22 Dose: 1,000 mls/hr Documented by: TAMMI Vital Signs Vital signs: Vital Signs - 8 hr 03/26/20 12:06 03/26/20 12:13 03/26/20 12:14 Pulse Rate 77 71 77 Pulse Rate [Orthostatic Lying] Pulse Rate [Orthostatic Sitting] Pulse Rate [Orthostatic Standing] Respiratory Rate 29 H 28 H 18 Blood Pressure 145/65 H 184/80 H Blood Pressure [Orthostatic Lying] Blood Pressure [Orthostatic Sitting] Blood Pressure [Orthostatic Standing] Pulse Oximetry 100 99 100 03/26/20 12:16 03/26/20 12:17 03/26/20 12:30 Pulse Rate 81 68 Pulse Rate [Orthostatic Lying] 70 Pulse Rate [Orthostatic Sitting] 74 Pulse Rate [Orthostatic Standing] 81 Respiratory Rate 21 Blood Pressure 172/77 H 154/74 H Blood Pressure [Orthostatic Lying] 145/65 H Blood Pressure [Orthostatic Sitting] 184/80 H Blood Pressure [Orthostatic Standing] 172/71 H Pulse Oximetry 100 99 03/26/20 14:00 Pulse Rate 78 Pulse Rate [Orthostatic Lying] Pulse Rate [Orthostatic Sitting] Pulse Rate [Orthostatic Standing] Respiratory Rate Blood Pressure 172/73 H Blood Pressure [Orthostatic Lying] Blood Pressure [Orthostatic Sitting] Blood Pressure [Orthostatic Standing] Pulse Oximetry 98 MDM - Dizziness Lab Data Result diagrams: 03/26/20 12:05 03/26/20 12:05 Labs: Lab Results 03/26/20 03/26/20 Range/Units 12:05 12:05 WBC 6.7 (4.5-11.0) X10^3/uL RBC 4.11 (4.0-5.2) X10^6/uL Hgb 10.5 L (12.0-16.0) g/dL Hct 33.9 L (36-46) % MCV 82.5 (80-100) fL MCH 25.6 L (26-34) PG MCHC 31.0 (30-36) % RDW 16.1 H (11.6-14.8) % Plt Count 427 H (150-400) X10^3/uL Neut % (Auto) 84.2 H (50-75) % Lymph % (Auto) 7.1 L (25-40) % [place]oup % (Auto) 7.6 (3-14) % Eos % (Auto) 0.2 L (2-4) % Baso % (Auto) 0.9 (0-2) % Neut # (Auto) 5600 (4709-4848) /uL Lymph # (Auto) 500 L (3308-7373) /uL [place] # (Auto) 500 (0-900) /uL Eos # (Auto) 0 (0-450) /uL Baso # (Auto) 100 (0-100) /uL Sodium 136 L (137-145) mmol/L Potassium 3.8 (3.4-5.1) mmol/L Chloride 106 (98-107) mmol/L Carbon Dioxide 22 (22-32) mmol/L BUN 19 H (7-17) mg/dL Creatinine 1.02 (0.52-1.04) mg/dL Estimated GFR 52.0 L (>60) mL/min BUN/Creatinine Ratio 18.6 (6-22) Glucose 108 (80-110) mg/dL Calcium 9.5 (8.4-10.2) mg/dL Total Bilirubin 0.7 (0.2-1.3) mg/dL AST 31 (14-36) IU/L ALT 18 (<35) IU/L Alkaline Phosphatase 143 H (38-126) U/L Total Protein 7.7 (6.3-8.2) g/dL Albumin 4.7 (3.5-5.0) g/dL Globulin 3.0 (1.7-4.1) g/dL Albumin/Globulin Ratio 1.6 (1.0-2.8) Imaging Data CT scan - head: Radiologist's Impression: PROCEDURE: CT HEAD/BRAIN WO CON INDICATIONS: dizzy TECHNIQUE: Noncontrast 4.5 mm thick angled axial sections acquired from the foramen magnum to the vertex, with coronal and sagittal reformats. For radiation dose reduction, the following was used: automated exposure control, adjustment of mA and/or kV according to patient size. COMPARISON: [facility], CT, HEAD WITHOUT CONTRAST, 06/03/2017, 11:47. FINDINGS: Image quality: Excellent. CSF spaces: Basal cisterns are patent. No extra-axial fluid collections. The ventricles are symmetric in size and shape. Brain: No intracranial bleeds or masses. There is cerebral volume loss for age, with resultant ventricular and sulcal prominence. There are periventricular and deep white matter chronic small vessel ischemic changes. There is intracranial internal carotid artery atherosclerosis. Skull and face: Calvarium and visualized facial bones appear intact, without suspicious lesions. Sinuses: Visualized sinuses and mastoids are clear. IMPRESSION: 1. No acute process. Dictated by: Blaire Cloud M.D. on 03/26/2020 at 12:12 Approved by: Blaire Cloud M.D. on 03/26/2020 at 12:12 ECG Data Attestation: I personally reviewed and interpreted this ECG as follows: Prior ECG tracings: available for review Interpretation: Normal sinus rhythm rate 83 p.r. interval 132 QRS [address] changes similar to previous EKG MDM Narrative Medical decision making narrative: Patient is overall feeling better. She says she has been feeling lightheaded if she gets up too fast for some time now but she is able to transfer to the commode is by herself without any assistance in the ED after IV fluids. She does not appear to be dehydrated no focal deficits. Possible anxiety reaction. Discharge Plan Departure Patient Disposition: Home Clinical Impression: Anxiety Discharge Date/Time: 03/26/20 14:00 Instructions: DI for Anxiety -- Adult Activity Restrictions/Additional Instructions: *You have been diagnosed with your symptoms may be related to anxiety. *What to do: I recommend getting up slowly from a seated position. Be sure to drink enough water. If this continues to be a problem you may need medication to help please talk with her primary care provider about this *Continue to take medications as directed *Follow up with your primary care provider in 2-3 days *Return to ER if you should have worsening dizziness, chest pain, shortness of breath, passing out or any new, worsening or concerning symptoms Prescriptions: No Action amlodipine [Norvasc] 10 mg tablet 10 mg PO Q DAY Qty: 90 RF: 3 donepezil [Aricept] 5 mg tablet 5 mg PO DAILY Qty: 90 RF: 3 levothyroxine 75 mcg capsule 75 mcg PO DAILY Qty: 90 RF: 3 omeprazole 20 mg capsule,delayed release(DR/EC) 20 mg PO DAILY Qty: 90 RF: 3 simvastatin [Zocor] 20 mg tablet 20 mg PO Q DAY Qty: 90 RF: 3 ferrous sulfate [Feosol] 325 mg (65 mg iron) tablet 325 mg PO BID Qty: 180 RF: 3 cyanocobalamin (vitamin B-12) 1,000 mcg capsule 1,000 mcg PO DAILY Qty: 90 RF: 3 Referrals: Nisreen Rose ARNP [Primary Care Provider] -
[2020-03-26 12:14] LABS: Add Manual Diff / Slide Review NO; Basophils Absolute Auto 100 /uL (0-100); Basophils Percent Auto 0.9 % (0-2); Eosinophils Absolute Auto 0 /uL (0-450); Eosinophils Percent Auto 0.2 % (2-4); Hematocrit 33.9 % (36-46); Hemoglobin 10.5 g/dL (12.0-16.0); Lymphocytes Absolute Auto 500 /uL (1100-4500); Lymphocytes Percent Auto 7.1 % (25-40); Mean Corpuscular Hemoglobin 25.6 PG (26-34); Mean Corpuscular Volume 82.5 fL (80-100); Monocytes Absolute Auto 500 /uL (0-900); Monocytes Percent Auto 7.6 % (3-14); Neutrophils Absolute Auto 5600 /uL (1500-7000); Neutrophils Percent Auto 84.2 % (50-75); Platelet Count 427 X10^3/uL (150-400); Red Blood Cell Count 4.11 X10^6/uL (4.0-5.2); Red Cell Distribution Width 16.1 % (11.6-14.8); White Blood Cell Count 6.7 X10^3/uL (4.5-11.0)
[2020-03-26] MEDS: SODIUM CHLORIDE 0.9% 1,000 ML 1000 ML IV (12:22)
[2020-03-26 12:24] LABS: Alanine Aminotransferase 18 IU/L (<35); Albumin 4.7 g/dL (3.5-5.0); Albumin Globulin Ratio 1.6 (1.0-2.8); Alkaline Phosphatase 143 U/L (38-126); Aspartate Aminotransferase 31 IU/L (14-36); BUN Creatinine Ratio 18.6 (6-22); Bilirubin Total 0.7 mg/dL (0.2-1.3); Blood Urea Nitrogen 19 mg/dL (7-17); Calcium 9.5 mg/dL (8.4-10.2); Carbon Dioxide 22 mmol/L (22-32); Chloride 106 mmol/L (98-107); Glucose 108 mg/dL (80-110); HEMOLYSIS < 15 (0-50); Potassium 3.8 mmol/L (3.4-5.1); Sodium 136 mmol/L (137-145); Total Protein 7.7 g/dL (6.3-8.2)
== END 2020-03-26 14:00 | disposition home or self-care (01) ==
PROVIDERS: Emergency Provider Emergency Medicine; PCP Nurse Practitioner
DX: F41.9 Anxiety disorder, unspecified (principal); R42 Dizziness and giddiness
CPT/HCPCS: 36415; 70450; 80053; 85025; 93005; 96360; 96361; 99284

== ENCOUNTER 2020-03-27 11:16 | Emergency (ER) | payer OTHER, SELFPAY ==
[2020-03-27] VITALS (12 sets, daily range): BP systolic 144–188; BP diastolic 66–87; PULSE 68–99; RESP 16–39; TEMP 36.5; O2SAT 79–100; BMI 22.1
--- NOTE | 2020-03-27 12:37 | ED.ANXIETY ---
HPI - Anxiety <SHAYAN Rojas - Last Filed: 03/27/20 19:23> General Chief Complaint: Anxiety Stated Complaint: Anxiety Time Seen by Provider: 03/27/20 12:01 Source: patient Mode of arrival: EMS Limitations: no limitations History of Present Illness HPI narrative: The patient is an 79-year-old female former smoker with history of hypertension and hypothyroid who presents with a chief complaint of panicking, having sensation that she is very anxious and that something is wrong. She states that she has been having these episodes consistently since . She denies any thoughts of hurting herself or anybody else. She does state that she has had these episodes before, but they always calm down and get better. She has been seen by EMS before without transport, and she has never taken anything for anxiety before. She states that she is having a hard time eating and drinking and hard time remembering to drink. She denies any chest pain shortness of breath lightheaded dizziness, thoughts of hurting herself or anybody else. Related Data Previous Rx's Medication Instructions Recorded amlodipine 10 mg tablet 10 mg PO Q DAY #90 tab 02/18/20 cyanocobalamin (vitamin B-12) 1,000 mcg PO DAILY #90 cap 02/18/20 1,000 mcg capsule donepezil 5 mg tablet 5 mg PO DAILY #90 tab 02/18/20 ferrous sulfate 325 mg (65 mg 325 mg PO BID #180 tab 02/18/20 iron) tablet levothyroxine 75 mcg capsule 75 mcg PO DAILY #90 cap 02/18/20 simvastatin 20 mg tablet 20 mg PO Q DAY #90 tab 02/18/20 buspirone 5 mg tablet 5 mg PO BID #60 tab 03/28/20 omeprazole 20 mg capsule,delayed 20 mg PO BID #180 cap 03/28/20 release Allergies Allergy/AdvReac Type Severity Reaction Status Date / Time Penicillins [PENICILLINS] Allergy Unknown CHILDHOOD Verified 03/28/20 12:18 Review of Systems <SHAYAN Rojas - Last Filed: 03/27/20 19:23> Review of Systems Narrative: GENERAL: Denies chills, fatigue, malaise, fever, sweats. HEENT: Denies sinus pain, ear pain, sore throat, difficulty swallowing, dizziness. RESPIRATORY: Denies dyspnea, cough, wheezing, hemoptysis, sputum. CARDIOVASCULAR: Denies chest pain, palpitations, orthopnea, edema, GASTROINTESTINAL: Denies nausea, vomiting, abdominal pain, diarrhea, constipation, melena. : Denies dysuria, frequency, incontinence, hematuria, urinary retention. MUSCULOSKELETAL: denies weakness, joint pain, or bony pain SKIN: Denies rash, skin lesions, or other NEUROLOGIC: Denies weakness, headache, numbness, change in speech, confusion, seizures, incoordination. PSYCHIATRIC: See HPI 12 point review of systems is negative except for those stated above Patient History <SHAYAN Rojas - Last Filed: 03/27/20 19:23> Medical History Anemia Frequent UTI Hyperlipemia Hypertension Hypothyroidism Other intermediate (current) drug therapy Surgical History History of tonsillectomy Hx of hand surgery (09/2015) Status post appendectomy Status post arthroscopy Status post colonoscopy Status post hysterectomy Family History Father Diabetes mellitus Hypertension Mother Hypertension Social History Smoking Status: Former smoker Smoking Status: Former smoker alcohol intake frequency: holidays/special occasions only Substance Use Type: does not use Exam <SHAYAN Rojas - Last Filed: 03/27/20 19:23> Narrative Exam Narrative: GENERAL: Elderly female no acute distress HEAD: Atraumatic. Normocephalic. No temporal or scalp tenderness. EYES: Pupils equal round and reactive. Extraocular motions intact. No scleral icterus. No injection or drainage. ENT: Nose without bleeding, purulent drainage or septal hematoma. Throat without erythema, tonsillar hypertrophy or exudate. Uvula midline. Airway patent. NECK: Trachea midline. No JVD or lymphadenopathy. Supple, nontender, no meningeal signs. CARDIOVASCULAR: Regular rate and rhythm RESPIRATORY: Clear to auscultation. Breath sounds equal bilaterally. No wheezes, rales, or rhonchi. No cough. No increased respiratory effort. No accessory muscle use. GASTROINTESTINAL: Abdomen soft, non-tender, nondistended. No hepato-splenomegaly, or palpable masses. No guarding. Active bowel sounds all quadrants. EXTREMITIES: No clubbing, cyanosis, or edema. No joint tenderness, effusion, or edema noted. BACK: Nontender without deformity or crepitance. No flank tenderness. NEURO: AOx3. Interactive. Stable gait. Age appropriate. No gross cranial nerve deficit. Clear speech. SKIN: No rash or erythema on visible skin Initial Vital Signs Initial Vital Signs: Vital Signs Pulse Rate 99 H 03/27/20 11:19 Pulse Oximetry 100 03/27/20 11:19 <Day Montano DO - Last Filed: 03/30/20 07:57> Initial Vital Signs Initial Vital Signs: Vital Signs Pulse Rate 99 H 03/27/20 11:19 Pulse Oximetry 100 03/27/20 11:19 Scores <SHAYAN Rojas - Last Filed: 03/27/20 19:23> GCS Kermit coma scale eye opening: Spontaneous [place]ermit coma scale verbal response: Orientated [place] coma scale motor response: Obey commands [place] coma scale total score: 15 Course <SHAYAN Rojas - Last Filed: 03/27/20 19:23> Orders Ordered: ED Orders 03/27/20 12:36 Consult to CREDIT BALANCE SPECIALIST - Repairer Screen Crusher Stat 03/27/20 12:48 EKG-12 Lead Stat 03/27/20 13:53 Complete Blood Count AUTO DIFF Stat Comprehensive Metabolic Panel Stat Magnesium Stat Thyroid Stimulating Hormone Stat Troponin & CK Cardiac Panel Stat Vital Signs Vital signs: Vital Signs - 8 hr 03/27/20 11:19 03/27/20 11:20 03/27/20 11:30 Temperature Pulse Rate 99 H 92 H 76 Respiratory Rate 39 H Blood Pressure 145/67 H 144/66 H Pulse Oximetry 100 100 79 L 03/27/20 11:43 03/27/20 12:00 03/27/20 12:30 Temperature 97.7 F Pulse Rate 89 73 79 Respiratory Rate 18 17 34 H Blood Pressure 144/66 H 149/68 H Pulse Oximetry 100 99 03/27/20 12:31 03/27/20 13:00 03/27/20 13:30 Temperature Pulse Rate 75 85 68 Respiratory Rate 32 H 23 Blood Pressure 188/82 H Pulse Oximetry 98 99 03/27/20 13:33 03/27/20 14:54 03/27/20 15:47 Temperature Pulse Rate 70 73 76 Respiratory Rate 16 18 Blood Pressure 144/70 H 178/74 H 177/87 H Pulse Oximetry 99 97 97 <Day Montano DO - Last Filed: 03/30/20 07:57> Orders Ordered: ED Orders 03/27/20 12:36 Consult to CREDIT BALANCE SPECIALIST - Repairer Screen Crusher Stat 03/27/20 12:48 EKG-12 Lead Stat 03/27/20 13:53 Complete Blood Count AUTO DIFF Stat Comprehensive Metabolic Panel Stat Magnesium Stat Thyroid Stimulating Hormone Stat Troponin & CK Cardiac Panel Stat Vital Signs Vital signs: Vital Signs - 8 hr 03/27/20 11:19 03/27/20 11:20 03/27/20 11:30 Temperature Pulse Rate 99 H 92 H 76 Respiratory Rate 39 H Blood Pressure 145/67 H 144/66 H Pulse Oximetry 100 100 79 L 03/27/20 11:43 03/27/20 12:00 03/27/20 12:30 Temperature 97.7 F Pulse Rate 89 73 79 Respiratory Rate 18 17 34 H Blood Pressure 144/66 H 149/68 H Pulse Oximetry 100 99 03/27/20 12:31 03/27/20 13:00 03/27/20 13:30 Temperature Pulse Rate 75 85 68 Respiratory Rate 32 H 23 Blood Pressure 188/82 H Pulse Oximetry 98 99 03/27/20 13:33 03/27/20 14:54 03/27/20 15:47 Temperature Pulse Rate 70 73 76 Respiratory Rate 16 18 Blood Pressure 144/70 H 178/74 H 177/87 H Pulse Oximetry 99 97 97 MDM - Anxiety <VLADIMIR Rojas-BC - Last Filed: 03/27/20 19:23> Lab Data Attestation: I reviewed the patient's lab results. Result diagrams: 03/27/20 13:53 03/27/20 13:53 Labs: Lab Results 03/27/20 03/27/20 03/27/20 Range/Units 13:53 13:53 13:53 WBC 6.5 (4.5-11.0) X10^3/uL RBC 3.81 L (4.0-5.2) X10^6/uL Hgb 9.8 L (12.0-16.0) g/dL Hct 31.4 L (36-46) % MCV 82.4 (80-100) fL MCH 25.7 L (26-34) PG MCHC 31.2 (30-36) % RDW 15.1 H (11.6-14.8) % Plt Count 371 (150-400) X10^3/uL Neut % (Auto) 84.9 H (50-75) % Lymph % (Auto) 6.1 L (25-40) % Izard % (Auto) 8.5 (3-14) % Eos % (Auto) 0.0 L (2-4) % Baso % (Auto) 0.5 (0-2) % Neut # (Auto) 5600 (2583-7084) /uL Lymph # (Auto) 400 L (0807-1883) /uL [place] # (Auto) 600 (0-900) /uL Eos # (Auto) 0 (0-450) /uL Baso # (Auto) 0 (0-100) /uL Sodium 137 (137-145) mmol/L Potassium 4.1 (3.4-5.1) mmol/L Chloride 106 (98-107) mmol/L Carbon Dioxide 26 (22-32) mmol/L BUN 14 (7-17) mg/dL Creatinine 1.01 (0.52-1.04) mg/dL Estimated GFR 52.6 L (>60) mL/min BUN/Creatinine Ratio 13.9 (6-22) Glucose 105 (80-110) mg/dL Calcium 8.8 (8.4-10.2) mg/dL Magnesium 2.0 (1.6-2.3) mg/dL Total Bilirubin 0.5 (0.2-1.3) mg/dL AST 26 (14-36) IU/L ALT 15 (<35) IU/L Alkaline Phosphatase 115 (38-126) U/L Total Creatine Kinase 116 (30-135) U/L CK-MB (CK-2) 0.63 (<2.37) ng/mL CK-MB (CK-2) Rel Index 0.5 L (1.5-5.0) % Troponin I < 0.012 (0.01-0.034) ng/mL Total Protein 6.8 (6.3-8.2) g/dL Albumin 4.3 (3.5-5.0) g/dL Globulin 2.5 (1.7-4.1) g/dL Albumin/Globulin Ratio 1.7 (1.0-2.8) TSH 4.31 D (0.47-4.68) uIU/mL Urine Dip Bedside Urine Glucose Negative Bedside Urine Bilirubin - Negative Bedside Urine Ketone - Negative Urine Specific [place] 1.010 Bedside Urine Occult Blood - Negative Bedside Urine pH 6.5 Bedside Urine Protein - Negative Bedside Urine Urobilinogen - Negative Bedside Urine Nitrite - Negative Bedside Urine Leukocytes - Negative Esterase ECG Data Attestation: I personally reviewed and interpreted this ECG as follows: Interpretation: Sinus rhythm. Ventricular rate 72. P.r. interval 138. QRS 68. viewed by Dr Montano MDM Narrative Medical decision making narrative: The patient is an 79-year-old female who presents to the emergency department for her 3rd time in 4 days for chief complaint of anxiety. She has received several evaluations including head CT, chest x-ray and multiple sets of lab work. She states she thinks she is having anxiety and panic attacks, though she has never had this bad before. Her lab work is grossly within normal limits, no signs of urinary tract infection. She was seen and evaluated by Christen MENDEZ, who is able to help arrange follow-up with primary care provider and provide support advice for anxiety. She states patient safe to go home patient also declines thoughts of hurting herself or anybody else. Her lab work was grossly noted to be within normal limits, she is slightly anemic with hemoglobin of 9.8. I offered to do Hemoccult to evaluate for GI bleed, though the patient declined. She declined this repeatedly. She states that she would rather follow-up with her primary care provider in the next few days. TSH within normal limits as well. Patient has no questions or concerns upon discharge and states understanding of return precautions as well as follow-up care. <Day Montano, - Last Filed: 03/30/20 07:57> Lab Data Labs: Lab Results 03/27/20 03/27/20 03/27/20 Range/Units 13:53 13:53 13:53 WBC 6.5 (4.5-11.0) X10^3/uL RBC 3.81 L (4.0-5.2) X10^6/uL Hgb 9.8 L (12.0-16.0) g/dL Hct 31.4 L (36-46) % MCV 82.4 (80-100) fL MCH 25.7 L (26-34) PG MCHC 31.2 (30-36) % RDW 15.1 H (11.6-14.8) % Plt Count 371 (150-400) X10^3/uL Neut % (Auto) 84.9 H (50-75) % Lymph % (Auto) 6.1 L (25-40) % Izard % (Auto) 8.5 (3-14) % Eos % (Auto) 0.0 L (2-4) % Baso % (Auto) 0.5 (0-2) % Neut # (Auto) 5600 (1516-0478) /uL Lymph # (Auto) 400 L (1270-7375) /uL [place] # (Auto) 600 (0-900) /uL Eos # (Auto) 0 (0-450) /uL Baso # (Auto) 0 (0-100) /uL Sodium 137 (137-145) mmol/L Potassium 4.1 (3.4-5.1) mmol/L Chloride 106 (98-107) mmol/L Carbon Dioxide 26 (22-32) mmol/L BUN 14 (7-17) mg/dL Creatinine 1.01 (0.52-1.04) mg/dL Estimated GFR 52.6 L (>60) mL/min BUN/Creatinine Ratio 13.9 (6-22) Glucose 105 (80-110) mg/dL Calcium 8.8 (8.4-10.2) mg/dL Magnesium 2.0 (1.6-2.3) mg/dL Total Bilirubin 0.5 (0.2-1.3) mg/dL AST 26 (14-36) IU/L ALT 15 (<35) IU/L Alkaline Phosphatase 115 (38-126) U/L Total Creatine Kinase 116 (30-135) U/L CK-MB (CK-2) 0.63 (<2.37) ng/mL CK-MB (CK-2) Rel Index 0.5 L (1.5-5.0) % Troponin I < 0.012 (0.01-0.034) ng/mL Total Protein 6.8 (6.3-8.2) g/dL Albumin 4.3 (3.5-5.0) g/dL Globulin 2.5 (1.7-4.1) g/dL Albumin/Globulin Ratio 1.7 (1.0-2.8) TSH 4.31 D (0.47-4.68) uIU/mL Urine Dip Bedside Urine Glucose Negative Bedside Urine Bilirubin - Negative Bedside Urine Ketone - Negative Urine Specific [place] 1.010 Bedside Urine Occult Blood - Negative Bedside Urine pH 6.5 Bedside Urine Protein - Negative Bedside Urine Urobilinogen - Negative Bedside Urine Nitrite - Negative Bedside Urine Leukocytes - Negative Esterase Discharge Plan Departure Patient Disposition: Home Clinical Impression: Anxiety Instructions: Anxiety and Panic Attacks (Alternative Therapy), DI for Anxiety -- Adult Activity Restrictions/Additional Instructions: Thank you for trusting us with your care today. Your symptoms are consistent with anxiety. As discussed, labs came back well. You are slightly anemic, but this is not largely changed from your previous visits. Today you were seen by Christen aids social worker. She will follow-up with her tomorrow. Please also follow-up with primary care provider next few days please come back to the emergency department for any acute concerns Prescriptions: No Action buspirone 5 mg tablet 5 mg PO BID Qty: 60 RF: 1 omeprazole 20 mg capsule,delayed release(DR/EC) 20 mg PO BID Qty: 180 RF: 3 amlodipine [Norvasc] 10 mg tablet 10 mg PO Q DAY Qty: 90 RF: 3 donepezil [Aricept] 5 mg tablet 5 mg PO DAILY Qty: 90 RF: 3 levothyroxine 75 mcg capsule 75 mcg PO DAILY Qty: 90 RF: 3 simvastatin [Zocor] 20 mg tablet 20 mg PO Q DAY Qty: 90 RF: 3 ferrous sulfate [Feosol] 325 mg (65 mg iron) tablet 325 mg PO BID Qty: 180 RF: 3 cyanocobalamin (vitamin B-12) 1,000 mcg capsule 1,000 mcg PO DAILY Qty: 90 RF: 3 Referrals: Nisreen Rose ARNP [Primary Care Provider] - <Day Montano DO - Last Filed: 03/30/20 07:57> Cosign ED Attending Cosbradature Attestation: I was immediately available in the department for consultation. Documentation has been reviewed. I agree with assessment and plan.
[2020-03-27 14:02] LABS: Add Manual Diff / Slide Review NO; Basophils Absolute Auto 0 /uL (0-100); Basophils Percent Auto 0.5 % (0-2); Eosinophils Absolute Auto 0 /uL (0-450); Hematocrit 31.4 % (36-46); Hemoglobin 9.8 g/dL (12.0-16.0); Lymphocytes Absolute Auto 400 /uL (1100-4500); Lymphocytes Percent Auto 6.1 % (25-40); Mean Corpuscular HGB Conc 31.2 % (30-36); Mean Corpuscular Hemoglobin 25.7 PG (26-34); Mean Corpuscular Volume 82.4 fL (80-100); Monocytes Absolute Auto 600 /uL (0-900); Monocytes Percent Auto 8.5 % (3-14); Neutrophils Absolute Auto 5600 /uL (1500-7000); Neutrophils Percent Auto 84.9 % (50-75); Platelet Count 371 X10^3/uL (150-400); Red Blood Cell Count 3.81 X10^6/uL (4.0-5.2); Red Cell Distribution Width 15.1 % (11.6-14.8); White Blood Cell Count 6.5 X10^3/uL (4.5-11.0)
[2020-03-27 14:12] LABS: Alanine Aminotransferase 15 IU/L (<35); Albumin 4.3 g/dL (3.5-5.0); Albumin Globulin Ratio 1.7 (1.0-2.8); Alkaline Phosphatase 115 U/L (38-126); Aspartate Aminotransferase 26 IU/L (14-36); BUN Creatinine Ratio 13.9 (6-22); Bilirubin Total 0.5 mg/dL (0.2-1.3); Blood Urea Nitrogen 14 mg/dL (7-17); Calcium 8.8 mg/dL (8.4-10.2); Carbon Dioxide 26 mmol/L (22-32); Chloride 106 mmol/L (98-107); Creatine Kinase 116 U/L (30-135); Estimated Glomerular Filt Rate 52.6 mL/min (>60); Globulin 2.5 g/dL (1.7-4.1); Glucose 105 mg/dL (80-110); HEMOLYSIS < 15 (0-50); Potassium 4.1 mmol/L (3.4-5.1); Sodium 137 mmol/L (137-145); Total Protein 6.8 g/dL (6.3-8.2)
[2020-03-27 14:23] LABS: Troponin I < 0.012 ng/mL (0.01-0.034)
[2020-03-27 14:27] LABS: CKMB % Relative Index 0.5 % (1.5-5.0); Creatine Kinase MB 0.63 ng/mL (<2.37)
[2020-03-27 14:48] LABS: Thyroid Stimulating Hormone 4.31 uIU/mL (0.47-4.68)
--- NOTE | 2020-03-27 16:14 | CM.SWNOTE ---
BAGGAGE AGENT Note: Received referral from ED staff requesting BAGGAGE AGENT consult to day on this 79yr old female patient whom has been to [facility] Emergency Department 3x in the last 5dys. Spoke with ED provider/Keren Oneill whom reports that patient has been coming to ED with anxiety/panic attacks. BAGGAGE AGENT met with patient explained role. Patient very [place]. Patient denies any suicidal or homicidal ideation. Patient reports that she started having bouts of anxiety/panic last week. Patient unclear on what is triggering these episodes. Patient reports that she resides with her son/Jamin in [place]. Son has been living with her for the last 5-6yrs. Patient denies any complaints related to her son's care giving. Patient reports that she relies heavily on her son and that for the most part they have been doing good Son now present in room and role introduced. Son confirms the above and indicates that patient has not been eating or sleeping much over the last few days? Patient reports being concerned that something medical might be going on. At this time provider reports all testing negative. Patient and son agreeable to return home but would like assistance in setting up follow up outpatient appointment with PCP/Nisreen Rose. BAGGAGE AGENT emailed request to Nisreen for assistance. Community resource guide also provided to patient and son. At this time patient wants and is willing to return home. Patient remains unclear on what is causing sudden bouts of anxiety/panic. Discussed breathing techniques that can be used during attacks. Patient reports that she would like to discuss this further with PCP. P: D/C home today. Emailed Nisreen Rose requesting follow up appointment or call to patient/son on 03-28-2020. Community Resources provided. VANESSA Garza
== END 2020-03-27 15:47 | disposition home or self-care (01) ==
PROVIDERS: Emergency Provider Nurse Practitioner Family; PCP Nurse Practitioner
DX: F41.9 Anxiety disorder, unspecified (principal); I10 Essential (primary) hypertension; E03.9 Hypothyroidism, unspecified; R07.9 Chest pain, unspecified
CPT/HCPCS: 36415; 80053; 81003; 82550; 82553; 83735; 84443; 84484; 85025; 93005; 99283; 99284

== ENCOUNTER → 2020-04-26 09:24 | Outpatient (CLI) | payer OTHER, SELFPAY ==
[2020-04-26 11:20] LABS: COVID19 -Nasal RAPID Negative (Negative)
== END ==
PROVIDERS: PCP Nurse Practitioner; Visit Provider Surgery
DX: Z01.812 Encounter for preprocedural laboratory examination (principal); Z20.828 Contact with and (suspected) exposure to other viral communicable diseases
CPT/HCPCS: 87635; C9803

== ENCOUNTER 2020-04-27 12:19 | Day surgery (SDC) | payer OTHER, SELFPAY ==
--- NOTE | 2020-04-27 | PATH_ITS ---
[facility] Accession Number: [id number] . 01 Material submitted: . PART A: duodenum - DUODENUM PART B: stomach - STOMACH PART C: esophagus - DISTAL ESOPHAGUS PART D: colon - ASCENDING COLON POLYP PART E: colon - COLON POLYP AT 55CM PART F: rectum - RECTAL POLYP . 02 Diagnosis: A. Duodenum, Biopsy: Small bowel mucosa with no diagnostic abnormality. Negative for active inflammation, features of sprue, dysplasia, or malignancy. . B. Stomach, Biopsy: Body type mucosa with no diagnostic abnormality. Negative for Helicobacter by immunohistochemistry. Negative for intestinal metaplasia. Negative for dysplasia and malignancy. . C. Distal Esophagus, Biopsy: Squamous epithelium with no diagnostic abnormality. Intraepithelial eosinophils are not increased. Negative for dysplasia and malignancy. . D. Ascending Colon, Polyp, Biopsy: Tubular adenoma. . E. Colon, Polyp at 55 cm, Biopsy: Tubular adenoma. . F. Rectum, Polyp, Biopsy: Hyperplastic polyp. [facility] 05/03/2020 1832 Local . 02 Electronically signed: . Tia Matute MD, Pathologist NPI- [id number] . 01 Gross description: . Part A: DUODENUM: Received in formalin are 2 fragment(s) of leblanc, soft tissue measuring 0.4 x 0.3 x 0.2 cm to 0.2 x 0.1 x 0.2 cm submitted entirely in 1 cassette(s) Part B: STOMACH: Received in formalin are 2 fragment(s) of leblanc, soft tissue measuring 0.3 x 0.2 x 0.2 cm to 0.2 x 0.2 x 0.1 cm submitted entirely in 1 cassette(s) Part C: DISTAL ESOPHAGUS: Received in formalin is 1 fragment(s) of leblanc, soft tissue measuring 0.2 x 0.2 x 0.1 cm submitted entirely in 1 cassette(s) Part D: ASCENDING COLON POLYP: Received in formalin are 5 fragment(s) of leblanc, soft tissue measuring 0.3 x 0.3 x 0.3 cm to 0.3 x 0.1 x 0.1 cm submitted entirely in 1 cassette(s) Part E: COLON POLYP AT 55CM: Received in formalin are 6 fragment(s) of leblanc, soft tissue measuring 0.3 x 0.3 x 0.3 cm to 0.3 x 0.2 x 0.1 cm submitted entirely in 1 cassette(s) Part F: RECTAL POLYP: Received in formalin is 1 fragment(s) of leblanc, soft tissue measuring 0.3 x 0.2 x 0.2 cm submitted entirely in 1 cassette(s) /Q 04/28/2020 0809 Local . 02 Microscopic: . B. An immunohistochemical stain was performed to evaluate for Helicobacter organisms and is negative. The control stain showed appropriate reactivity. . * This test was developed and its performance characteristics determined by [facility]. It has not been cleared or approved by the U.S. Food and Drug Administration. The FDA has determined that such clearance or approval is not necessary. This test is used for clinical purposes. It should not be regarded as investigational or for research. . 02 Pathologist provided ICD-10: D12.2, D12.6, D12.8, R19.5 . 02 CPT . 728954, 896317, 093999, 201550, 346421, 132502, V20665 Performed at: 01 [facility] [address] [facility], [place], [place] [id number] MD Arpan Avalos MD Phone: [phone] Performed at: 02 [facility] [address] [place], [place] [id number] MD Tia Matute MD Phone: [phone]
[2020-04-27 13:02] VITALS: BP 175/86; PULSE 91; RESP 16; TEMP 36.9; O2SAT 98; BMI 21.3
[2020-04-27] MEDS: SODIUM CHLORIDE 0.9% 1,000 ML 200 ML IV (13:22)
--- NOTE | 2020-04-27 14:25 | PM.PREOP ---
Pre-operative Note COVID-19 COVID-19 status: Negative Result date/Date tested (Pos, Neg/Pending): 04/26/20 Interval Note History & Physical reviewed/Exam performed by Physician: Yes Changes to H&P: No
--- NOTE | 2020-04-27 15:09 | SUR.OPER ---
DENTURES AND GLASSES TO PACU WITH PATIENT IN LABELED CONTAINERS
--- NOTE | 2020-04-27 15:59 | PM.OP.ENDO ---
Operative Date/Time/Diagnoses Date of procedure: 04/27/20 Time of procedure: 16:00 Pre-op diagnosis: Anemia, personal history of colon polyps Post-op diagnosis: other (many adenomatous appearing polyps; severe diverticulosis; mild gastritis and esophagitis; ) Procedure & Clinicians Study performed: Esophageal gastroduodenoscopy Biopsies of stomach, duodenum, distal esophagus Colonoscopy Polypectomy x 8 with cold snare and cold forceps Same procedure as scheduled: Yes Indications: Anemia, personal history of colon polyps. This patient is very medically frail, with dizziness upon standing, and unexplained anemia. Her risk for a cardiac or respiratory event under conscious sedation performed by the endoscopist is considered to be high, therefore we have consulted the anesthesiologist to provide monitored anesthesia care during this procedure. Surgeon: Nahomy Calixto Procedure Notes SCOAP/Timeout: Performed Procedure in detail: The patient was brought to the room and placed in left lateral decubitus position with all bony prominences padded. A bite block was positioned in the patient's mouth to protect the lips, teeth, and tongue for the procedure. A time-out was performed and then the patient was given deep sedation by Dr. Morelos. Once adequately sedated, the procedure was begun. The lubricated gastroscope was passed through the bite block and across the tongue and into the esophagus without incident. A tubular view of the esophagus was maintained as the scope was advanced through the esophagus and into the stomach. The scope was advanced through the stomach and to the pylorus. The scope was gently popped through the pylorus and into the duodenal bulb. The scope was flexed and advanced into the second and third portions of the duodenum. Low-grade inflammation was seen in the duodenum and stomach. No ulcers, or evidence of neoplasms were seen. Mucosal biopsies were taken. The scope was retroflexed and the gastric cardia was examined. There was a Hill grade 3 hiatal hernia with no ulcerations. The scope was then straightened, and withdrawn into the esophagus. There was a broken Z-line without any significant esophagitis. Biopsies were taken. The distal esophagus appeared otherwise normal. The scope was then withdrawn through the esophagus with a tubular view. The scope was then withdrawn from the patient and attention was turned to the colonoscopy portion of the procedure. A rectal exam was then performed revealing Soft external hemorrhoids. The colonoscope was then introduced to the rectum and advanced through the rectal folds. Once I reached the sigmoid colon, goes very difficult to traverse because the colon was riddled with diverticula. There were many false passages, and very deep diverticula. The scope was withdrawn and a pediatric scope was brought into the room. Using a pediatric scope I was able to navigate through the extensive diverticula. There was no evidence of bleeding. The scope was then advanced to the cecum in the usual fashion. The cecum was identified by the appendiceal orifice, the mucosal tri-fold, and the ileocecal valve. The scope was then retracted while rotating side to side and examining each mucosal fold. Multiple polyps were found and removed. Three polyps in the ascending colon at 65 cm, 5 small polyps at 55 cm, and 1 rectal polyp at 15 cm. All removed and retrieved, and sent for pathology. At the conclusion of the procedure retroflexion was performed and small grade 1-2 internal hemorrhoids without stigmata of bleeding were seen. The scope was then withdrawn from the rectum the procedure was concluded. The patient tolerated the procedure well and was transferred to the PACU in stable condition. Scope withdrawal time: 18 Findings: diverticulosis (Severe diverticulosis), gastritis (Mild), hiatal hernia (Grade 3) and polyp Specimen(s): other (Biopsies of stomach, duodenum, distal esophagus, multiple polyps) Complications: none Impression: Inflammation in the distal esophagus and stomach, multiple polyps, severe diverticulosis in the sigmoid colon Post-procedure Recommendations: Colonscopy in 5 years (If healthy enough for colonoscopy at that time), Continue medication(s) (Continue omeprazole) and Other recommendation (Will contact patient with biopsy results, and any further recommendations) Follow up: as needed Disposition: PACU
[2020-04-27 16:01] VITALS: BP 105/73; PULSE 60; RESP 20; TEMP 36.1; O2SAT 99
[2020-04-27 16:06] VITALS: BP 129/54; PULSE 59; RESP 20; O2SAT 99
[2020-04-27 16:11] VITALS: BP 98/70; PULSE 63; RESP 13; O2SAT 93
[2020-04-27 16:17] VITALS: BP 133/61; PULSE 64; RESP 16; O2SAT 94
[2020-04-27 16:38] VITALS: BP 154/65; PULSE 67; RESP 16; TEMP 36.4; O2SAT 99
--- NOTE | 2020-04-27 16:38 | SUR.PHASEII ---
Moved patient to phase II and assisted patient to bathroom. Patient denies dizziness or nausea but is unsteady on her feet and needs one-person assist. Daughter, Charissa, is on the way. VSS.
--- NOTE | 2020-04-27 17:12 | SUR.PHASEII ---
Discharged patient in stable condition with daughter. All belongings returned to patient.
== END 2020-04-27 17:00 | disposition home or self-care (01) ==
PROVIDERS: PCP Nurse Practitioner; Referring Provider Nurse Practitioner; Visit Provider Surgery
PROC: 0DJ08ZZ Inspection of Upper Intestinal Tract, Via Natural or Artificial Opening Endoscopic (ICD-10-PCS; CPT 43235; principal; 2020-04-27 13:45)
PROC: 0DJD8ZZ Inspection of Lower Intestinal Tract, Via Natural or Artificial Opening Endoscopic (ICD-10-PCS; CPT 45378; 2020-04-27 13:45)
DX: R19.5 Other fecal abnormalities (principal); D64.9 Anemia, unspecified; F03.90 Unspecified dementia, unspecified severity, without behavioral disturbance, psychotic disturbance, mood disturbance, and anxiety; K57.30 Diverticulosis of large intestine without perforation or abscess without bleeding; K29.50 Unspecified chronic gastritis without bleeding; K44.9 Diaphragmatic hernia without obstruction or gangrene; D12.2 Benign neoplasm of ascending colon; D12.6 Benign neoplasm of colon, unspecified; K62.1 Rectal polyp
CPT/HCPCS: 45385; 45380; 43239; J2704

== ENCOUNTER → 2020-05-16 11:56 | Outpatient (CLI) | payer OTHER, SELFPAY ==
[2020-05-16 12:28] LABS: Add Manual Diff / Slide Review NO; Basophils Absolute Auto 100 /uL (0-100); Basophils Percent Auto 1.1 % (0-2); Eosinophils Absolute Auto 0 /uL (0-450); Eosinophils Percent Auto 0.8 % (2-4); Hematocrit 37.4 % (36-46); Hemoglobin 12.1 g/dL (12.0-16.0); Lymphocytes Absolute Auto 700 /uL (1100-4500); Lymphocytes Percent Auto 13.5 % (25-40); Mean Corpuscular HGB Conc 32.2 % (30-36); Mean Corpuscular Hemoglobin 28.5 PG (26-34); Mean Corpuscular Volume 88.4 fL (80-100); Monocytes Absolute Auto 500 /uL (0-900); Monocytes Percent Auto 9.1 % (3-14); Neutrophils Absolute Auto 4100 /uL (1500-7000); Neutrophils Percent Auto 75.5 % (50-75); Platelet Count 339 X10^3/uL (150-400); Red Blood Cell Count 4.24 X10^6/uL (4.0-5.2); White Blood Cell Count 5.4 X10^3/uL (4.5-11.0)
[2020-05-16 12:45] LABS: Hemoglobin A1C% w Est Avg Glu 4.6 % (4.0-6.0)
[2020-05-16 12:51] LABS: Alanine Aminotransferase 15 IU/L (<35); Albumin 4.7 g/dL (3.5-5.0); Albumin Globulin Ratio 1.7 (1.0-2.8); Alkaline Phosphatase 147 U/L (38-126); Aspartate Aminotransferase 29 IU/L (14-36); BUN Creatinine Ratio 16.2 (6-22); Bilirubin Total 0.4 mg/dL (0.2-1.3); Blood Urea Nitrogen 18 mg/dL (7-17); Calcium 9.3 mg/dL (8.4-10.2); Carbon Dioxide 25 mmol/L (22-32); Chloride 104 mmol/L (98-107); Cholesterol 225 mg/dL (140-199); Estimated Glomerular Filt Rate 47.2 mL/min (>60); Globulin 2.8 g/dL (1.7-4.1); Glucose 98 mg/dL (80-110); HEMOLYSIS < 15 (0-50); Potassium 3.9 mmol/L (3.4-5.1); Sodium 137 mmol/L (137-145); Total Protein 7.5 g/dL (6.3-8.2); Triglycerides 138 mg/dL (35-150)
[2020-05-16 12:58] LABS: HDL Cholesterol 104 mg/dL (40-60); LDL Cholesterol Calculated 93 mg/dL (<100)
[2020-05-16 13:20] LABS: Thyroid Stimulating Hormone 0.851 uIU/mL (0.47-4.68)
[2020-05-16 15:50] LABS: Creatinine Urine Random 76.5 mg/dL
[2020-05-16 15:56] LABS: Microalbumi Creatinin Ratio Ur 19.6 ug/mg CR (<30); Microalbumin Urine Random 1.5 mg/dL (0-1.6)
== END ==
PROVIDERS: PCP Nurse Practitioner; Referring Provider Nurse Practitioner; Visit Provider Nurse Practitioner
DX: D64.9 Anemia, unspecified (principal); E78.2 Mixed hyperlipidemia; E03.9 Hypothyroidism, unspecified; F03.90 Unspecified dementia, unspecified severity, without behavioral disturbance, psychotic disturbance, mood disturbance, and anxiety; I10 Essential (primary) hypertension; Z79.899 Other long term (current) drug therapy
CPT/HCPCS: 36415; 80053; 80061; 82043; 82570; 83036; 84443; 85025

== ENCOUNTER → 2020-07-12 14:49 | Outpatient (CLI) | payer OTHER, SELFPAY ==
--- NOTE | 2020-07-12 14:50 | DI.MG.S_ITS ---
BILATERAL DIGITAL DIAGNOSTIC MAMMOGRAM 3D/2D: 07/12/2020 CLINICAL: Right breast mass. Comparison is made to exams dated: 09/29/2015 mammogram, 10/15/2014 mammogram, 10/08/2013 mammogram, 10/07/2012 mammogram, and 10/04/2011 mammogram - [facility]. There are scattered fibroglandular elements in both breasts. There is a 1.5 cm oval mass with an indistinct margin and pleomorphic calcifications in the right breast at 11 o'clock middle depth. This correlates as palpated. There also is a 1 cm oval low density mass with a circumscribed margin in the right breast at 6 o'clock middle depth. This is more prominent. No other significant masses, calcifications, or other findings are seen in either breast. IMPRESSION: INCOMPLETE: NEEDS ADDITIONAL IMAGING EVALUATION 1) The 1.5 cm oval mass in the right breast at 11 o'clock middle depth is indeterminate. -A targeted ultrasound is recommended and will immediately follow. 2) The 1 cm oval low density mass in the right breast at 6 o'clock middle depth resembles a cyst and is indeterminate. -A targeted ultrasound is recommended and will immediately follow. This exam was interpreted at Station ID: [id number]. NOTE: For mammograms, a report in lay terms will be sent to the patient. Approximately 15% of breast malignancies will not be visualized mammographically. In the management of a palpable breast mass, a negative mammogram must not discourage biopsy of a clinically suspicious lesion. Electronically Signed By: Paxton Kimball M.D. slc/:07/12/2020 15:29:00 ACR BI-RADS Category 0: Incomplete [id number]
--- NOTE | 2020-07-12 14:50 | DI.US.S_ITS ---
LIMITED ULTRASOUND OF RIGHT BREAST AND AXILLA: 07/12/2020 CLINICAL: Palpable right breast lump. Comparison is made to exams dated: 07/12/2020 mammogram, 09/29/2015 mammogram, 10/15/2014 mammogram, 10/08/2013 mammogram, and 10/07/2012 mammogram - [facility]. Color flow and real-time ultrasound of the right breast 9-10 o'clock, and axilla regions were performed. Infante scale images of the real-time examination were reviewed. There is a 2 cm x 1.9 cm x 1.8 cm irregular mass with a spiculated margin in the right breast at 10 o'clock middle depth 2 cm from the nipple. This irregular mass is hypoechoic with an echogenic boundary and posterior acoustic shadowing. This correlates as palpated and with mammography findings. Color flow imaging demonstrates that there is vascularity present. No ultrasound correlate for the suspected cyst in the right breast at 6 o'clock middle depth. This was present on multiple more remote mammograms but was less well seen on the 2016 mammogram CC view. No significant abnormalities were seen sonographically in the right axilla. IMPRESSION: HIGHLY SUGGESTIVE OF MALIGNANCY 1) The 2 cm x 1.9 cm x 1.8 cm irregular mass in the right breast at 10 o'clock 2 cm from the nipple is highly suggestive of malignancy. -An ultrasound guided biopsy is recommended. 2) No ultrasound correlate for the suspected cyst in the right breast at 6 o'clock middle depth. -Follow-up mammogram and possible ultrasound in 6 months is recommended. -If breast MRI is preformed for extent of disease, recommend attention to this region. Need for biopsy was discussed with the patient by Dr. Quique Keane. This exam was interpreted at Station ID: [id number]. Electronically Signed By: Paxton Kimball M.D. [facility] [place]/:07/12/2020 16:34:34 letter sent: Biopsy Required Ultrasound BI-RADS: 5 Highly suggestive of malignancy
== END ==
PROVIDERS: PCP Nurse Practitioner; Referring Provider Nurse Practitioner; Visit Provider Nurse Practitioner
DX: R92.8 Other abnormal and inconclusive findings on diagnostic imaging of breast (principal); N63.15 Unspecified lump in the right breast, overlapping quadrants; N63.11 Unspecified lump in the right breast, upper outer quadrant
CPT/HCPCS: 76642; 77066; G0279

== ENCOUNTER → 2020-07-21 09:05 | Outpatient (CLI) | payer OTHER, SELFPAY ==
--- NOTE | 2020-07-21 | PATH_ITS ---
[facility] Accession Number: [id number] . 01 Material submitted: . breast - RIGHT BREAST 10:00 MASS . 02 Diagnosis: Right Breast Mass at 10 o'clock Middle Depth, 2 cm From Nipple, Image- Guided Needle Core Biopsy: Invasive carcinoma with the following features: Procedure: Needle biopsy. Specimen Laterality: Right. Tumor Site: Upper outer quadrant. Tumor Size: At least 5 mm (disrupted fragments). Histologic Type: Invasive carcinoma of no special type (ductal by immunohistochemistry studies). Histologic Grade: Tubule Differentation: Score 3 of 3. Nuclear Pleomorphism: Score 2 of 3. Mitotic Rate: Score 1 of 3. Overall Grade: Grade II of III (intermediate). Ductal Carcinoma In Situ: Not identified. Lymphovascular Invasion: Not identified. Microcalcifications: Rare calcifications identified. Ancillary Studies: Please see microscopic section. [facility] 07/26/2020 1252 Local . 02 Comment: Results discussed with Nisreen Rose's nurse, Jarret, on 07-22-20 at approximately 3:54 p.m. . 02 Electronically signed: . Nicki Freedman MD, Pathologist NPI- [id number] . 01 Gross description: . Received one formalin-filled container, labeled with the patient's name and designated right breast 10 o'clock mass. The specimen is received with a plastic filter, sample loose in container and consists of multiple light yellow-goodwin, rough, partial cylindrical-shaped portions of tissue which range in size from 0.1 x 0.1 x 0.1 cm to 1.4 x 0.2 x 0.2 cm. All fragments are totally submitted in one cassette. Possible collection date and time per requisition: 07/21/20 at 10:14. Possible total fixation time: Approximately 17 hours. ([id number]) /STEFANIA 07/22/2020 0227 Local . 02 Microscopic: . An immunohistochemistry stain is performed to further evaluate the cells of interest. The control stain shows appropriate reactivity. . RESULTS: E-cadherin: Strongly positive, consistent with ductal differentiation. . . Estrogen Receptor (ER) Status: Positive, >95% of tumor nuclei. Average intensity of staining: Strong intensity. Primary antibody: SP1 Progesterone Receptor (PgR) Status: Positive, >95% of tumor nuclei. Average intensity of staining: Strong intensity. Primary antibody: 1E2 HER2 (by immunohistochemistry): Negative at 1+ Primary antibody: 4B5 . . Cold Ischemia and Fixation Times: Meets requirements in the latest version of the ASCO/CAP guidelines. Testing performed on Block Number: A1 . TECHNICAL NOTE: The scoring criteria for breast biomarkers by immunohistochemistry is based on the current ASCO/CAP guidelines (Zaki et al, Arch Pathol Lab Med 2010: 134(6): 907-922 / Edilberto Baker al, Arch Pathol Lab Med 2014: 138(2):241-256). Deparaffinized sections of formalin fixed tissue (along with appropriate positive controls) are incubated with the above antibody(s). Using the automated Mellott stainer, tissue is incubated with the designated antibody* which is then localized by a non-biotin, dual polymer detection system. The external controls are reviewed for appropriate reactivity and found to be adequate. Results on the target cell population are indicated above. These tests have not been validated on decalcified tissue. * This test was developed and its performance characteristics determined by [facility]. It has not been cleared or approved by the U.S. Food and Drug Administration. The FDA has determined that such clearance or approval is not necessary. This test is used for clinical purposes. It should not be regarded as investigational or for research. . 02 Pathologist provided ICD-10: C50.911 . 02 CPT . 884473, 200982, 021773, 690581, I35002 Performed at: 01 [facility] [address] [facility], [place], [place] [id number] MD Arpan Avalos MD Phone: [phone] Performed at: 02 [facility] [address] [place], [place] [id number] MD Tia Matute MD Phone: [phone]
--- NOTE | 2020-07-21 | DI.MG.S_ITS ---
UNILATERAL RIGHT DIGITAL DIAGNOSTIC MAMMOGRAM POST-PROCEDURE IMAGING FOR MARKER PLACEMENT: 07/21/2020 CLINICAL: Right post clip. Comparison is made to exams dated: 07/12/2020 ultrasound, 07/12/2020 mammogram, and 09/29/2015 mammogram - [facility]. There are scattered fibroglandular elements in right breast. There is a marker clip in the appropriate position in the right breast at 10 o'clock middle depth. IMPRESSION: POST PROCEDURE MAMMOGRAM FOR MARKER PLACEMENT There was a successful marker clip placement in the right breast middle depth. This exam was interpreted at Station ID: [id number]. NOTE: For mammograms, a report in lay terms will be sent to the patient. Approximately 15% of breast malignancies will not be visualized mammographically. In the management of a palpable breast mass, a negative mammogram must not discourage biopsy of a clinically suspicious lesion. Electronically Signed By: Jake Weber M.D. aty/:07/21/2020 11:21:40 ACR BI-RADS Category Post-procedure mammogram for marker placement
--- NOTE | 2020-07-21 09:06 | DI.US.S_ITS ---
ULTRASOUND GUIDED BIOPSY RIGHT BREAST USING VACUUM DEVICE WITH MARKING DEVICE INSERTED AND POST MAMMOGRAPHIC IMAGIN07/21/2020 CLINICAL: Right breast mass. PATIENT CONSENT: Risks (minor bleeding, infection, vasovagal reaction and repeat procedure), benefits and alternatives were explained to the patient and written informed consent was obtained. Correlation is made to exams dated: 07/12/2020 ultrasound, 07/12/2020 mammogram, 09/29/2015 mammogram, and 10/15/2014 mammogram - [facility]. An ultrasound guided biopsy using real-time ultrasound was performed for the irregular shaped mass located in the right breast at 10 o'clock middle depth 2 cm from the nipple. This was described on the previous mammography and ultrasound reports. The skin was prepped in the usual manner. Local anesthetic was administered to the access site. A skin tam was made in the breast. The abnormality was approached from the lateral aspect. A 13 gauge biopsy needle was placed adjacent to the abnormality under ultrasound guidance. Once the needle was documented to be in the correct location, seven specimens were obtained using the Mammotome biopsy system. A Vision clip was inserted into the biopsy cavity. A sterile dressing was applied to the access site. Post procedure mammographic imaging demonstrates the location device at the targeted area. The specimens were sent to the laboratory for pathological analysis. IMPRESSION: ULTRASOUND GUIDED BIOPSY MALIGNANT Ultrasound guided biopsy of the mass in the right breast at 10 o'clock middle depth 2 cm from the nipple was successful. Pathology indicates malignant invasive ductal carcinoma (ID). Pathology results are concordant with imaging findings. A surgical/oncologic consultation is recommended. Results and recommendations will be communicated to the ordering provider's office. This exam was interpreted at Station ID: [id number]. ansley Cano M.D., M.D./:07/27/2020 17:18:08
== END ==
PROVIDERS: PCP Nurse Practitioner; Referring Provider Nurse Practitioner; Visit Provider Nurse Practitioner
DX: C50.411 Malignant neoplasm of upper-outer quadrant of right female breast (principal); Z17.0 Estrogen receptor positive status [ER+]
CPT/HCPCS: 19083; 77065

== ENCOUNTER → 2020-07-27 10:57 | Outpatient (CLI) | payer MEDICARE, SELFPAY ==
[2020-07-27] MEDS: COVID-19 VACC #1, MRNA(MOD) 100 MCG/0.5 ML VIAL IM (11:06)
--- NOTE | 2020-08-01 11:16 | ONC.MSW ---
Description: New Referral Navigation T/C Reason for Referral: Breast Cancer, Right-Sided Activity: Called and spoke with pt's son, confirmed that we've received pt's referral, discussed initial questions re: the consult visit and role of Oncologist, explained the role of navigation and ongoing availability of support, assistance, and resources as needed. Pt just had her biopsy on 07/21/20, is scheduled to meet with [facility] this week to discuss surgical options, and a f/u with her PCP, Nisreen Rose, on 08/11. They are wanting to consult with the Oncologist prior to surgery, in order to weigh options for decision-making. Confirmed her initial appt. time for 08/10 at 3:00pm. No further immediate needs identified at this time.
== END ==
PROVIDERS: PCP Nurse Practitioner; Visit Provider Internal Medicine
DX: Z23 Encounter for immunization (principal)
CPT/HCPCS: 0011A; 91301

== ENCOUNTER → 2020-08-10 11:03 | Outpatient (CLI) | payer OTHER, SELFPAY ==
[2020-08-10 12:08] LABS: Add Manual Diff / Slide Review NO; Basophils Absolute Auto 0 /uL (0-100); Basophils Percent Auto 0.5 % (0-2); Eosinophils Absolute Auto 0 /uL (0-450); Eosinophils Percent Auto 0.4 % (2-4); Hematocrit 38.2 % (36-46); Hemoglobin 12.4 g/dL (12.0-16.0); Lymphocytes Absolute Auto 600 /uL (1100-4500); Lymphocytes Percent Auto 8.1 % (25-40); Mean Corpuscular HGB Conc 32.6 % (30-36); Mean Corpuscular Hemoglobin 32.1 PG (26-34); Mean Corpuscular Volume 98.5 fL (80-100); Monocytes Absolute Auto 600 /uL (0-900); Neutrophils Absolute Auto 6000 /uL (1500-7000); Platelet Count 343 X10^3/uL (150-400); Red Blood Cell Count 3.88 X10^6/uL (4.0-5.2); Red Cell Distribution Width 13.7 % (11.6-14.8); White Blood Cell Count 7.2 X10^3/uL (4.5-11.0)
[2020-08-10 12:22] LABS: Alanine Aminotransferase 16 IU/L (<35); Albumin 4.6 g/dL (3.5-5.0); Albumin Globulin Ratio 1.8 (1.0-2.8); Alkaline Phosphatase 135 U/L (38-126); Aspartate Aminotransferase 31 IU/L (14-36); BUN Creatinine Ratio 18.8 (6-22); Bilirubin Total 0.4 mg/dL (0.2-1.3); Blood Urea Nitrogen 22 mg/dL (7-17); Calcium 9.4 mg/dL (8.4-10.2); Carbon Dioxide 23 mmol/L (22-32); Chloride 103 mmol/L (98-107); Estimated Glomerular Filt Rate 44.4 mL/min (>60); Globulin 2.5 g/dL (1.7-4.1); Glucose 107 mg/dL (80-110); HEMOLYSIS < 15 (0-50); Potassium 4.1 mmol/L (3.4-5.1); Sodium 137 mmol/L (137-145); Total Protein 7.1 g/dL (6.3-8.2)
[2020-08-10 12:52] LABS: Thyroid Stimulating Hormone 2.61 uIU/mL (0.47-4.68)
== END ==
PROVIDERS: PCP Nurse Practitioner; Referring Provider Nurse Practitioner; Visit Provider Nurse Practitioner
DX: D64.9 Anemia, unspecified (principal); E03.9 Hypothyroidism, unspecified; E78.2 Mixed hyperlipidemia; I10 Essential (primary) hypertension; Z79.899 Other long term (current) drug therapy
CPT/HCPCS: 36415; 80053; 84443; 85025

== ENCOUNTER → 2020-08-24 10:04 | Outpatient (CLI) | payer MEDICARE, SELFPAY ==
[2020-08-24] MEDS: COVID-19 VACC #2, MRNA(MOD) 100 MCG/0.5 ML VIAL IM (10:11)
== END ==
PROVIDERS: PCP Nurse Practitioner; Visit Provider Internal Medicine
DX: Z23 Encounter for immunization (principal)
CPT/HCPCS: 0012A; 91301

== ENCOUNTER → 2020-09-02 09:18 | Outpatient (CLI) | payer OTHER, SELFPAY ==
[2020-09-02 11:37] LABS: COVID19 -Nasal RAPID Negative (Negative)
== END ==
PROVIDERS: PCP Nurse Practitioner; Visit Provider Surgery
DX: Z01.812 Encounter for preprocedural laboratory examination (principal); Z20.822 Contact with and (suspected) exposure to COVID-19
CPT/HCPCS: 87635; C9803

== ENCOUNTER 2020-09-05 07:50 | Day surgery (SDC) | payer OTHER, SELFPAY ==
[2020-09-02 09:29] VITALS: BMI 21.9
[2020-09-05] VITALS (9 sets, daily range): BP systolic 136–159; BP diastolic 59–83; PULSE 63–88; RESP 12–18; TEMP 36.8–37.4; O2SAT 95–100; BMI 20.7
--- NOTE | 2020-09-05 | PATH_ITS ---
[facility] Accession Number: [id number] . 01 Material submitted: . breast - RIGHT BREAST; SHORT STITCH SUPERIOR; LONG STITCH RIGHT LATERAL . 02 Diagnosis: Right Breast, Mastectomy: . Invasive carcinoma of the breast with the following features: . Procedure: Total mastectomy. Specimen laterality: Right. Tumor site: Upper outer quadrant. Tumor size: 21 mm in greatest dimension. Additional dimensions: 20 x 20 mm. Histologic type: Invasive carcinoma of no special type (ductal). Histologic grade: Glandular: Score 3 of 3. Nuclear pleomorphism: Score 2 of 3. Mitotic rate: Score 1 of 3. Overall grade: Grade 2 (score 6/9). Tumor focality: Single focus of invasive carcinoma. . Ductal carcinoma in situ: Present; negative for extensive intraductal component. Size of DCIS: Present as focal, patchy regions associated with invasive tumor (up to 5 mm in greatest dimension, less than 5% of apparent tumor volume). Architectural patterns: Comedo, cribriform, and solid patterns. Nuclear grade of DCIS: Grade II (intermediate). Necrosis: Present, central (expansive comedonecrosis). Lobular carcinoma in situ: Not identified. Margins of DCIS: Margins negative for DCIS. Nearest margin (DCIS): 4mm posterior margin. All other margins (DCIS): Greater than 20 mm. Tumor extension: Skin: Skin is present and uninvolved. Nipple: DCIS does not involve the nipple epiderimis. . Skeletal muscle: No skeletal muscle is present. . Margins: Invasive carcinoma margins: Margins uninvolved by invasive carcinoma. Distance from closest margin: 3 mm from the posterior margin. Distance from other margins: All other margins greater than 20 mm. . Regional lymph nodes: No lymph nodes submitted or found. Treatment effect in breast: No known presurgical therapy. Lymphovascular invasion: Not identified. Dermal lymphovascular invasion: Not identified. . Pathologic stage classification (pTNM, AJCC 8th Edition): pT2 pNX. . Additional pathologic findings: Biopsy marker in slice 6, 10-11 o'clock position; minute fibroadenoma (2 mm) and rare foci of fibrocystic change; patchy Monckeberg's calcifications present; changes suggestive of previous instrumentation are present. . Ancillary studies: Breast biomarker testing: By written report (history of present illness, [facility]; 09/05/2020): this patient's right breast tumor is ER and ME positive. These studies are repeated on the excised specimen; please see microscopic description for results. . Microcalcifications: Present in DCIS, invasive carcinoma, and nonneoplastic tissue. MRV 09/12/2020 1402 Local . 02 Electronically signed: . Nicki Freedman MD, Pathologist NPI- [id number] . 01 Gross description: . The specimen is received in formalin, labeled right breast. Specimen: Right simple mastectomy specimen. Weight: 296 grams. Measurement: 17.0 cm from medial to lateral by 13.0 cm from superior to inferior by 4.0 cm from anterior to posterior. Skin Ellipse: Present, leblanc elliptical portion measuring 17.0 x 10.0 cm. Nipple/Areola: 0.3 x 0.2 cm inverted nipple with an ill-defined faint 2.0 x 2.0 cm areola. Axillary Tail: Absent. Margins: The specimen is oriented with a short suture designated superior and a long suture designated lateral. The specimen is inked as follows: anterosuperior blue, anteroinferior green and posterior black. Slices: The specimen is serially sectioned from lateral to medial into 15 slices. Lesion: There is a 2.1 x 2.0 x 2.0 cm well-circumscribed firm leblanc-white mass within slices 5 and 6 (approximately 10-11 o'clock position). There is a silver metallic balloon-shaped biopsy marker identified within slice 6 located within the mass. Distance To Margins: 0.3 cm from the posterior margin, greater than 2 cm from the anteriosuperior and anteroinferior margins, 2.1 cm from the anterosuperior (nearest) skin margin and greater than 5 cm from the nipple. Other: The remaining cut surfaces are composed of approximately 80% leblanc-yellow lobulated adipose tissue and 20% leblanc-white fibrous tissue. Cassette Summary: A1-A2: nipple, trisected (slice 9). A3: slice 4, lateral to mass (to include posterior margin). A4-A5: slice 5, full cross-section of mass in relation to posterior margin, bisected. A6-A7: slice 5, remainder of mass in that slice in relation to posterior margin. A8: slice 6, mass in relation to skin. A9-A10: slice 6, mass in relation to posterior margin (A8 contains site of biopsy marker). A11: slice 6, closest anterosuperior skin and soft tissue margins. A12: slice 6, closest anteroinferior skin and soft tissue margins. A13: slice 7, medial to mass in relation to posterior margin. A14: slice 8, approximate 6 o'clock position in relation to posterior margin. A15: upper inner quadrant. A16: lower inner quadrant. A7: lower outer quadrant. Fixation time: Approximately 50 hours. (EA:[id number]) /MRV 09/07/2020 1303 Local . 02 Microscopic: . Immunohistochemical stains were performed on block A10, with the control stained appropriately. . RESULT: GATA3: Positive. E-cadherin: Positive. . The neoplastic cells are immunopositive for both GATA3 and e-cadherin. These findings are consistent with breast origin and with ductal differentiation. . CAP BREAST BIOMARKER REPORTING TEMPLATE: . Estrogen Receptor (ER) Status: Positive. Average intensity of staining: Strong; greater than 90% of tumor nuclei. Primary antibody: SP1 Progesterone Receptor (PgR) Status: Positive. Average intensity of staining: Strong, greater than 90% of tumor nuclei. Primary antibody: 1E2 HER2 (by immunohistochemistry): Negative (0+). Primary antibody: 4B5 . Cold Ischemia and Fixation Times: Meets requirements in the latest version of the ASCO/CAP guidelines. Testing performed on Block Number: A10. . TECHNICAL NOTE: The scoring criteria for breast biomarkers by immunohistochemistry is based on the current ASCO/CAP guidelines (Zaki solano al, Arch Pathol Lab Med 2010: 134(6): 907-922 / Edilberto Baker al, Arch Pathol Lab Med 2014: 138(2):241-256). Deparaffinized sections of formalin fixed tissue (along with appropriate positive controls) are incubated with the above antibody(s). Using the automated Millry stainer, tissue is incubated with the designated antibody* which is then localized by a non-biotin, dual polymer detection system. The external controls are reviewed for appropriate reactivity and found to be adequate. Results on the target cell population are indicated above. These tests have not been validated on decalcified tissue. * This test was developed and its performance characteristics determined by [facility]. It has not been cleared or approved by the U.S. Food and Drug Administration. The FDA has determined that such clearance or approval is not necessary. This test is used for clinical purposes. It should not be regarded as investigational or for research. . 02 Pathologist provided ICD-10: C50.411 . 02 CPT . 814099, 006520, 830468, 960566, C65408, [id number] Performed at: 01 [facility] [address] [place] [address], [place], [place] [id number] MD Arpan Avalos MD Phone: [phone] Performed at: 02 [facility] [id number] [address] [place] [id number] MD Tia Matute MD Phone: [phone]
[2020-09-05] MEDS: LACTATED RINGERS 1,000 ML 100 ML IV (08:38)
[2020-09-05] MEDS: ACETAMINOPHEN 325 MG TABLET 650 MG PO (08:38)
--- NOTE | 2020-09-05 09:24 | P.HP_ITS ---
History of Present Illness History of Present Illness Date Patient Seen: 09/05/20 Time Patient Seen: 09:24 Chief complaint: RIGHT MASTECTOMY Narrative: This is an 79 yo woman with history of HTN, HLD, hypothyroid, and dementia who recently found a palpable right breast mass on her self exam three months ago. She had US and mammogram imaging and biopsy which revealed a right breast 2cm upper outer quadrant IDC, ER/WI positive at 10:00 position in the right breast. Her case was discussed at tumor board. The ultimate recommendation was for mastectomy without sentinel node biopsy, and without hormonal or chemotherapy afterwards due to the patient's dementia and risk of worsening dementia with any chemotherapy or hormonal medications. The patient is here today for right mastectomy. She her daughter here together, they say nothing has changed since last she was here. ROS: The patient denies nipple discharge, night sweats, weight loss. Thirteen system review is otherwise negative other than as mentioned below and in HPI. PE: GENERAL: Well groomed and cooperative. Appears stated age. Offers some answers to questions, and defers to her daughter at times. Vital signs noted. HENT: Normocephalic, atraumatic. Hearing intact. EYES: Conjunctiva pink, sclera white, no periorbital swelling. CARDIOVASCULAR: Regular rate. RESPIRATORY: Non-tachypneic, breathing comfortably on room air. GASTROINTESTINAL: Abdomen soft and non-distended MUSCULOSKELETAL: Equal tone and mass bilaterally. SKIN: Warm, dry, soft, appropriate color for ethnicity. No other lesions, rashes, or wounds. NEURO: Alert and Oriented X 3. No gross sensory deficits, or cognitive issues. PSYCH: Appropriate affect and mood. Patient History Medical History Anemia Breast cancer, right CKD (chronic kidney disease) stage 3, GFR 30-59 ml/min Dizziness on standing Easy bruisability Frequent UTI GERD (gastroesophageal reflux disease) Hyperlipemia Hypertension Hypothyroidism Mass of right breast Positive FIT (fecal immunochemical test) Symptomatic anemia Vaginal candidiasis Vaginal irritation Surgical History History of esophagogastroduodenoscopy (EGD) (04/2020) History of tonsillectomy Hx of endarterectomy (1989) Hx of hand surgery (09/2015) Status post appendectomy Status post arthroscopy Status post colonoscopy Status post hysterectomy Family & Social History Family History Father Diabetes mellitus Hypertension Heart disease Mother Hypertension Social History: household members family Tobacco & Substance use: Tobacco type cigarettes Smoking Status Former smoker alcohol intake current alcohol intake frequency 3 or more drinks per day Substance Use Type does not use Meds Home Medications and Allergies Home Medications Medication Instructions Recorded Confirmed Type amlodipine 10 mg tablet 10 mg PO Q DAY #90 tab 08/15/20 09/05/20 Rx cyanocobalamin (vitamin B-12) 1,000 mcg PO DAILY #90 cap 08/15/20 09/05/20 Rx 1,000 mcg capsule donepezil 5 mg tablet 5 mg PO DAILY #90 tab 08/15/20 09/05/20 Rx ferrous sulfate 325 mg (65 mg 325 mg PO BID #180 tab 08/15/20 09/05/20 Rx iron) tablet levothyroxine 75 mcg capsule 75 mcg PO DAILY #90 cap 08/15/20 09/05/20 Rx omeprazole 20 mg capsule,delayed 20 mg PO BID #180 cap 08/15/20 09/05/20 Rx release simvastatin 20 mg tablet 20 mg PO Q DAY #90 tab 08/15/20 09/05/20 Rx Allergies Allergy/AdvReac Type Severity Reaction Status Date / Time Penicillins [PENICILLINS] Allergy Unknown CHILDHOOD Verified 09/05/20 08:07 Exam Vital Signs (past 8 hours): - 09/05/20 08:18 Temperature 98.3 F Pulse Rate 88 Respiratory Rate 16 Blood Pressure 159/83 H Pulse Oximetry 100 Oxygen Delivery Method Room Air Objective Imaging Mammogtram: Radiologist's impression: ADDENDUMTHIS REPORT HAS BEEN AMENDED. LIMITED ULTRASOUND OF RIGHT BREAST AND AXILLA: 07/12/2020 CLINICAL: Palpable right breast lump. Comparison is made to exams dated: 07/12/2020 mammogram, 09/29/2015 mammogram, 10/15/2014 mammogram, 10/08/2013 mammogram, and 10/07/2012 mammogram - [facility]. Color flow and real-time ultrasound of the right breast 9-10 o'clock, and axilla regions were performed. Infante scale images of the real-time examination were reviewed. There is a 2 cm x 1.9 cm x 1.8 cm irregular mass with a spiculated margin in the right breast at 10 o'clock middle depth 2 cm from the nipple. This irregular mass is hypoechoic with an echogenic boundary and posterior acoustic shadowing. This correlates as palpated and with mammography findings. Color flow imaging demonstrates that there is vascularity present. No ultrasound correlate for the suspected cyst in the right breast at 6 o'clock middle depth. This was present on multiple more remote mammograms but was less well seen on the 2016 mammogram CC view. No significant abnormalities were seen sonographically in the right axilla. IMPRESSION: HIGHLY SUGGESTIVE OF MALIGNANCY 1) The 2 cm x 1.9 cm x 1.8 cm irregular mass in the right breast at 10 o'clock 2 cm from the nipple is highly suggestive of malignancy. -An ultrasound guided biopsy is recommended. 2) No ultrasound correlate for the suspected cyst in the right breast at 6 o'clock middle depth. -Follow-up mammogram and possible ultrasound in 6 months is recommended. -If breast MRI is preformed for extent of disease, recommend attention to this region. Need for biopsy was discussed with the patient by Dr. Quique Keane. This exam was interpreted at Station ID: [id number]. Electronically Signed By: Paxton Kimball M.D. slc/:07/12/2020 16:34:34 letter sent: Biopsy Required Ultrasound BI-RADS: 5 Highly suggestive of malignancy AMENDMENT: 07/27/2020 Rika Ontiveros M.D. The circumscribed mass at 6:00 in the right breast at a posterior depth has been present and stable for greater than 10 years. As it has shown group home stability, there is no need for dedicated follow up. Amended BI-RADS: 5 Highly suggestive of malignancy Addendum Dictated By:Paxton Kimball MDAddendum Signed By:Addendum Cosigned By:DD/ TD/TT: 07/12/2007/03/1544 LIMITED ULTRASOUND OF RIGHT BREAST AND AXILLA: 07/12/2020 CLINICAL: Palpable right breast lump. Comparison is made to exams dated: 07/12/2020 mammogram, 09/29/2015 mammogram, 10/15/2014 mammogram, 10/08/2013 mammogram, and 10/07/2012 mammogram - [facility]. Color flow and real-time ultrasound of the right breast 9-10 o'clock, and axilla regions were performed. Infante scale images of the real-time examination were reviewed. There is a 2 cm x 1.9 cm x 1.8 cm irregular mass with a spiculated margin in the right breast at 10 o'clock middle depth 2 cm from the nipple. This irregular mass is hypoechoic with an echogenic boundary and posterior acoustic shadowing. This correlates as palpated and with mammography findings. Color flow imaging demonstrates that there is vascularity present. No ultrasound correlate for the suspected cyst in the right breast at 6 o'clock middle depth. This was present on multiple more remote mammograms but was less well seen on the 2016 mammogram CC view. No significant abnormalities were seen sonographically in the right axilla. IMPRESSION: HIGHLY SUGGESTIVE OF MALIGNANCY 1) The 2 cm x 1.9 cm x 1.8 cm irregular mass in the right breast at 10 o'clock 2 cm from the nipple is highly suggestive of malignancy. -An ultrasound guided biopsy is recommended. 2) No ultrasound correlate for the suspected cyst in the right breast at 6 o'clock middle depth. -Follow-up mammogram and possible ultrasound in 6 months is recommended. -If breast MRI is preformed for extent of disease, recommend attention to this region. Need for biopsy was discussed with the patient by Dr. Quique Keane. This exam was interpreted at Station ID: [id number]. Electronically Signed By: Paxton Kimball M.D. slc/:07/12/2020 16:34:34 letter sent: Biopsy Required Ultrasound BI-RADS: 5 Highly suggestive [place] [address] Pathology Diagnostic ReportSigned Ordering Physician: Nisreen Rose Patient name: Marcia Miller Date of : 1940 Admit Date: 07/21/[address]: Nicki Freedman MD Collection Date: 07/21/20 [facility] Accession Number: [id number] . 01 Material submitted: . breast - RIGHT BREAST 10:00 MASS . 02 Diagnosis: Right Breast Mass at 10 o'clock Middle Depth, 2 cm From Nipple, Image- Guided Needle Core Biopsy: Invasive carcinoma with the following features: Procedure: Needle biopsy. Specimen Laterality: Right. Tumor Site: Upper outer quadrant. Tumor Size: At least 5 mm (disrupted fragments). Histologic Type: Invasive carcinoma of no special type (ductal by immunohistochemistry studies). Histologic Grade: Tubule Differentation: Score 3 of 3. Nuclear Pleomorphism: Score 2 of 3. Mitotic Rate: Score 1 of 3. Overall Grade: Grade II of III (intermediate). Ductal Carcinoma In Situ: Not identified. Lymphovascular Invasion: Not identified. Microcalcifications: Rare calcifications identified. Ancillary Studies: Please see microscopic section. [facility] 07/26/2020 1252 Local . 02 Comment: Results discussed with Nisreen Rose's nurse, Jarret, on 07-22-20 at approximately 3:54 p.m. . 02 Electronically signed: . Nicki Freedman MD, Pathologist NPI- [id number] . 01 Gross description: . Received one formalin-filled container, labeled with the patient's name and designated right breast 10 o'clock mass. The specimen is received with a plastic filter, sample loose in container and consists of multiple light yellow-infante, rough, partial cylindrical-shaped portions of tissue which range in size from 0.1 x 0.1 x 0.1 cm to 1.4 x 0.2 x 0.2 cm. All fragments are totally submitted in one cassette. Possible collection date and time per requisition: 07/21/20 at 10:14. Possible total fixation time: Approximately 17 hours. ([id number]) /STEFANIA 07/22/2020 0227 Local . 02 Microscopic: . An immunohistochemistry stain is performed to further evaluate the cells of interest. The control stain shows appropriate reactivity. . RESULTS: E-cadherin: Strongly positive, consistent with ductal differentiation. . . Estrogen Receptor (ER) Status: Positive, >95% of tumor nuclei. Average intensity of staining: Strong intensity. Primary antibody: SP1 Progesterone Receptor (PgR) Status: Positive, >95% of tumor nuclei. Average intensity of staining: Strong intensity. Primary antibody: 1E2 HER2 (by immunohistochemistry): Negative at 1+ Primary antibody: 4B5 . . Cold Ischemia and Fixation Times: Meets requirements in the latest version of the ASCO/CAP guidelines. Testing performed on Block Number: A1 . TECHNICAL NOTE: The scoring criteria for breast biomarkers by immunohistochemistry is based on the current ASCO/CAP guidelines (Zaki et al, Arch Pathol Lab Med 2010: 134(6): 907-922 / Edilberto PATTERSON et al, Arch Pathol Lab Med 2014: 138(2):241-256). Deparaffinized sections of formalin fixed tissue (along with appropriate positive controls) are incubated with the above antibody(s). Using the automated Stephen stainer, tissue is incubated with the designated antibody* which is then localized by a non-biotin, dual polymer detection system. The external controls are reviewed for appropriate reactivity and found to be adequate. Results on the target cell population are indicated above. These tests have not been validated on decalcified tissue. * This test was developed and its performance characteristics determined by [employer]. It has not been cleared or approved by the U.S. Food and Drug Administration. The FDA has determined that such clearance or approval is not necessary. This test is used for clinical purposes. It should not be regarded as investigational or for research. . 02 Pathologist provided ICD-10: C50.911 . 02 CPT . 051896, 713692, 984674, 617453, C87577 Performed at: 01 [facility] [address] [facility]– [place], [place], [place] [id number] MD Arpan Avalos MD Phone: [phone] Performed at: 02 [facility] [address] [place], [place] [id number] MD Tia Matute MD Phone: [phone] Dictated By:Nicki Freedman MDSigned By:07/26/20 2972 Assessment & Plan Assessment and plan (1) Dementia: Qualifiers: Dementia type: unspecified type Dementia behavioral disturbance: without behavioral disturbance Qualified Code(s): F03.90 - Unspecified dementia without behavioral disturbance Status: Chronic (2) Frailty: Status: Chronic (3) CKD (chronic kidney disease) stage 3, GFR 30-59 ml/min: Qualifiers: Chronic kidney disease stage 3 subtype: stage 3b (GFR 30-44) Qualified Code(s): N18.32 - Chronic kidney disease, stage 3b Status: Acute (4) Breast cancer, right: Qualifiers: Breast location: unspecified site of breast Estrogen receptor status: positive Patient sex: female Qualified Code(s): C50.911 - Malignant neoplasm of unspecified site of right female breast; Z17.0 - Estrogen receptor positive status [ER+] Status: Chronic Assessment & Plan narrative: I again explained the details of surgery which will likely include day surgery, with a possible over night stay for observation in the hospital. I explained that she would have a drain for approximately 2 weeks, pain is usually minimal and well tolerated after mastectomy. We discussed the risks of bleeding, infection, damage to local structures, scarring, scarring, prolonged recovery, pain, and risks of anesthesia (specifically worsening cognitive decline). Patient her daughter verbalized they would like to proceed with surgery. Plan: Proceed to OR for right mastectomy COVID-19 COVID-19 status: Negative Result date/Date tested (Pos, Neg/Pending): 09/02/20 Time Spent With Patient Time with patient: 15-24 minutes Quality VTE Deep Vein Thrombosis/Pulmonary Embolism Present on Admission: No
[2020-09-05] MEDS: CEFAZOLIN 2 GM/100 ML FROZ.PIGGY IV (10:10)
--- NOTE | 2020-09-05 10:21 | SUR.OPER ---
Supine on padded OR bed, head on pillow, arms secured on padded arm boards at <90 degrees abduction, legs uncrossed, safety belt at thigh, tape over blanket over lower legs.
[2020-09-05] MEDS: BUPIVACAINE LIPOSOME 266 MG/20 ML VIAL INJ (10:26)
[2020-09-05] MEDS: BUPIVACAINE 0.25% W/ EPI 30 ML VIAL INJ (10:26)
--- NOTE | 2020-09-05 11:20 | PM.OP.1 ---
Operative Date/Time/Diagnoses Date of procedure: 09/05/20 Time of procedure: 11:20 Pre-op diagnosis: Right breast cancer Post-op diagnosis: same Procedure & Clinicians Procedure: Right simple mastectomy PRINCESS drain placed Same procedure as scheduled: Yes Indications: Right breast cancer Surgeon: Nahomy Calixto Click Yes if Unassisted: Yes Anesthesia Type: General Operative Notes Findings: 2 cm palpable mass in the right breast Specimen(s): other (Right breast, short stitch superior, long stitch right lateral) Applied: drain(s) (Ten Finnish flat drain) Estimated Blood Loss (mL): 10 Blood products transfused: none Procedure in detail: The patient was brought into the OR and placed supine on the OR table. Sequential compression devices were placed on both legs and turned on. General anesthesia was induced and the patient was intubated by the anesthesiologist. Appropriate perioperative antibiotics were given. Surgical time out was performed. Local anesthetic was infiltrated into the skin, and a 25cm x 10cm transverse modified eliptical incision was made in the skin of the right breast including the nipple areolar complex. Flaps were created using cautery, dividing the breast tissue from the skin and subcutaneous tissue in the natural avascular plane. The upper flap was first created. Dissection was carried all the way to the clavicle superiorly, and deep to the pectoral muscle. Inferiorly, the dissection was carried to the inframammary fold. Medially the breast tissue was dissected to the midline of the chest. I then dissected the breast tissue off of the pectoral muscle, taking the pectoral fascia from medial to lateral. Once we reached the lateral border of the pectoral muscle, the tail of the breast was dissected out, and the entire specimen was removed from the wound. The specimen was marked with short stitch superior, and long stitch right lateral. Hemostasis was achieved using cautery. A 10 flat PRINCESS drain was placed over the pectoral muscle, exiting the skin inferolaterally from the lateral border of the skin incision. Local anesthetic with 0.25% Marcaine with epi was infiltrated into the wound suspect, for a total of 30 mL for the case. 20 mL of Exparel was injected in small aliquots in the subcutaneous fat, skin, muscle, and fascia. The skin flaps were approximated in layers using 2-0 Vicryl, 3-0 Vicryl, and subcuticular 4-0 Monocryl. The drain was sutured in place with 3-0 Nylon. Dermabond was used to seal the skin. Steri strips were placed across the incisional closure, and a telfa island dressing was placed over the steri strips, and another Telfa was placed around the drain. All were secured in place with Tegaderm. The patient was then awakened from anesthesia and extubated. Needle sponge and instrument counts were correct x 2. A breast binder was placed on the patient. The patient was transferred to the PACU in stable condition. Complications: none Post-operative Condition: stable Disposition: PACU
[2020-09-05] MEDS: fentaNYL 100 MCG/2 ML INJ IV (11:37)
== END 2020-09-05 12:38 | disposition home or self-care (01) ==
PROVIDERS: PCP Nurse Practitioner; Referring Provider Surgery; Visit Provider Surgery
PROC: 0HTT0ZZ Resection of Right Breast, Open Approach (ICD-10-PCS; CPT 19303; principal; 2020-09-05 09:15)
DX: C50.911 Malignant neoplasm of unspecified site of right female breast (principal); Z17.0 Estrogen receptor positive status [ER+]; F03.90 Unspecified dementia, unspecified severity, without behavioral disturbance, psychotic disturbance, mood disturbance, and anxiety; I12.9 Hypertensive chronic kidney disease with stage 1 through stage 4 chronic kidney disease, or unspecified chronic kidney disease; N18.32 Chronic kidney disease, stage 3b; E78.5 Hyperlipidemia, unspecified; E03.9 Hypothyroidism, unspecified
CPT/HCPCS: 19303; 82962; C9290; J0690; J1100; J2405; J2704; J3010

== ENCOUNTER 2020-11-22 15:27 | Emergency (ER) | payer OTHER, SELFPAY ==
[2020-11-22] VITALS (29 sets, daily range): BP systolic 165–208; BP diastolic 73–129; PULSE 72–106; RESP 15–42; TEMP 36.6; O2SAT 97–100; BMI 21.2
--- NOTE | 2020-11-22 15:41 | DI.RAD.S_ITS ---
PROCEDURE: XR CHEST 1V INDICATIONS: Dizziness TECHNIQUE: One view of the chest was acquired. COMPARISON: [facility], CR, XR CHEST 1V, 03/24/2020, 17:30. FINDINGS: Surgical changes and devices: None. Lungs and pleura: Lungs are clear. No pleural effusions or pneumothorax. Mediastinum: Mediastinal contours appear normal. Heart size is enlarged. Bones and chest wall: No suspicious bony lesions. Overlying soft tissues appear unremarkable. IMPRESSION: No acute cardiopulmonary process demonstrated radiographically. Median sternotomy changes, cardiomegaly, and aortic atherosclerosis. Correlate for any clinical features of CHF. Dictated by: Mike Newby M.D. on 11/22/2020 at 16:10 Approved by: Mike Newby M.D. on 11/22/2020 at 16:11
[2020-11-22] MEDS: SODIUM CHLORIDE 0.9% 1,000 ML 150 ML IV (15:52)
[2020-11-22 16:02] LABS: Add Manual Diff / Slide Review NO; Basophils Absolute Auto 0 /uL (0-100); Basophils Percent Auto 0.5 % (0-2); Eosinophils Absolute Auto 0 /uL (0-450); Eosinophils Percent Auto 0.2 % (2-4); Hematocrit 39.1 % (36-46); Hemoglobin 13.2 g/dL (12.0-16.0); Lymphocytes Absolute Auto 900 /uL (1100-4500); Lymphocytes Percent Auto 12.6 % (25-40); Mean Corpuscular HGB Conc 33.9 % (30-36); Mean Corpuscular Hemoglobin 32.3 PG (26-34); Mean Corpuscular Volume 95.5 fL (80-100); Monocytes Absolute Auto 600 /uL (0-900); Monocytes Percent Auto 7.8 % (3-14); Neutrophils Absolute Auto 5700 /uL (1500-7000); Neutrophils Percent Auto 78.9 % (50-75); Platelet Count 378 X10^3/uL (150-400); Red Blood Cell Count 4.09 X10^6/uL (4.0-5.2); Red Cell Distribution Width 12.5 % (11.6-14.8); White Blood Cell Count 7.3 X10^3/uL (4.5-11.0)
[2020-11-22 16:11] LABS: Lactate (Lactic Acid) 1.4 mmol/L (0.7-2.1)
[2020-11-22 16:12] LABS: Alanine Aminotransferase 13 IU/L (<35); Albumin 4.8 g/dL (3.5-5.0); Albumin Globulin Ratio 1.8 (1.0-2.8); Alkaline Phosphatase 119 U/L (38-126); Aspartate Aminotransferase 26 IU/L (14-36); BUN Creatinine Ratio 16.2 (6-22); Bilirubin Total 0.3 mg/dL (0.2-1.3); Blood Urea Nitrogen 19 mg/dL (7-17); Calcium 9.6 mg/dL (8.4-10.2); Carbon Dioxide 24 mmol/L (22-32); Chloride 103 mmol/L (98-107); Estimated Glomerular Filt Rate 44.4 mL/min (>60); Globulin 2.7 g/dL (1.7-4.1); Glucose 96 mg/dL (80-110); HEMOLYSIS < 15 (0-50); Potassium 4.3 mmol/L (3.4-5.1); Sodium 136 mmol/L (137-145); Total Protein 7.5 g/dL (6.3-8.2)
[2020-11-22 16:24] LABS: Troponin I < 0.012 ng/mL (0.01-0.034)
--- NOTE | 2020-11-22 18:14 | ED.DIZZY ---
HPI - Dizziness General Chief Complaint: Dizziness Stated Complaint: chills,dizziness Time Seen by Provider: 11/22/20 18:09 Source: patient and other Mode of arrival: Wheelchair Limitations: no limitations History of Present Illness HPI Narrative: 79-year-old female former smoker with a history of hypertension presents with a chief complaint of feeling a bit weak and under the weather over the past day or so. She has been a bit shaky and not feeling great for much of today. She states she has had a few episodes such as over the past few weeks to months. She denies any headache or blurred vision. She denies any chest pain or shortness of breath. She denies nausea, vomiting or diarrhea. She denies change in medication or diet. She has had no abdominal pain, constipation or diarrhea. She denies dysuria, frequency or urgency. Related Data Previous Rx's Medication Instructions Recorded amlodipine 10 mg tablet (Norvasc) 10 mg PO Q DAY #90 tab 08/15/20 cyanocobalamin (vitamin B-12) 1,000 mcg PO DAILY #90 cap 08/15/20 1,000 mcg capsule donepezil 5 mg tablet (Aricept) 5 mg PO DAILY #90 tab 08/15/20 ferrous sulfate 325 mg (65 mg 325 mg PO BID #180 tab 08/15/20 iron) tablet (Feosol) levothyroxine 75 mcg capsule 75 mcg PO DAILY #90 cap 08/15/20 omeprazole 20 mg capsule,delayed 20 mg PO BID #180 cap 08/15/20 release simvastatin 20 mg tablet (Zocor) 20 mg PO Q DAY #90 tab 08/15/20 docusate sodium 100 mg capsule 100 mg PO BID #20 cap 09/05/20 tramadol 50 mg tablet 50 mg PO Q8H PRN #20 tab 09/05/20 Allergies Allergy/AdvReac Type Severity Reaction Status Date / Time Penicillins [PENICILLINS] Allergy Unknown CHILDHOOD Verified 09/20/20 10:43 Review of Systems Review of Systems Narrative: GENERAL: See HPI HEENT: Denies sinus pain, ear pain, sore throat, difficulty swallowing, dizziness. RESPIRATORY: Denies dyspnea, cough, wheezing, hemoptysis, sputum. CARDIOVASCULAR: See HPI GASTROINTESTINAL: Denies nausea, vomiting, abdominal pain, diarrhea, constipation, melena. : Denies dysuria, frequency, incontinence, hematuria, urinary retention. MUSCULOSKELETAL: denies weakness, joint pain, or bony pain SKIN: Denies rash, skin lesions, or other NEUROLOGIC: Denies weakness, headache, numbness, change in speech, confusion, seizures, incoordination. PSYCHIATRIC: No concerning psychosocial issues. 12 point review of systems is negative except for those stated above Patient History Medical History Anemia Breast cancer, right CKD (chronic kidney disease) stage 3, GFR 30-59 ml/min Dizziness on standing Easy bruisability Frequent UTI GERD (gastroesophageal reflux disease) Hyperlipemia Hypertension Hypothyroidism Mass of right breast Positive FIT (fecal immunochemical test) Symptomatic anemia Vaginal candidiasis Vaginal irritation Surgical History History of esophagogastroduodenoscopy (EGD) (04/2020) History of tonsillectomy Hx of endarterectomy (1989) Hx of hand surgery (09/2015) Status post appendectomy Status post arthroscopy Status post colonoscopy Status post hysterectomy Family History Father Diabetes mellitus Hypertension Heart disease Mother Hypertension Social History marital status: unknown household members: family Smoking Status: Former smoker alcohol intake: current substance use type: does not use Smoking Status: Former smoker alcohol intake frequency: 3 or more drinks per day Substance Use Type: does not use Exam Narrative Exam Narrative: GENERAL: [79] year old patient appears stated age. Well-developed patient, in mild distress. Pleasantly confused, GCS 14 HEAD: Atraumatic. Normocephalic. EYES: Pupils equal round and reactive. Extraocular motions intact. No scleral icterus. No injection or drainage. ENT: Dry mucous membranes Nose without bleeding, purulent drainage. Throat without erythema, tonsillar hypertrophy or exudate. Airway patent. NECK: Trachea midline. Non tender CARDIOVASCULAR: Regular rate and rhythm without murmurs, gallops, or rubs. RESPIRATORY: Clear to auscultation. Breath sounds equal bilaterally. No wheezes, rales, or rhonchi. GASTROINTESTINAL: Abdomen soft, non-tender, nondistended. EXTREMITIES: No edema or joint tenderness. BACK: Nontender without deformity or crepitance. No flank tenderness. NEURO: AOx3. SKIN: Poor skin turgor No rash or erythema of visible areas Initial Vital Signs Initial Vital Signs: Vital Signs Temperature 97.9 F 11/22/20 15:32 Pulse Rate 91 H 11/22/20 15:32 Respiratory Rate 20 11/22/20 15:32 Blood Pressure 177/87 H 11/22/20 15:32 Pulse Oximetry 100 11/22/20 15:32 Course Orders Ordered: ED Orders 11/22/20 18:18 COVID19 -Nasal swab/Pre-Proc Stat Discontinued Medications Sodium Chloride (Normal Saline 0.9%) 1,000 mls @ 150 mls/hr IV CONT ARYA Last Infusion: 11/22/20 23:04 Dose: 0 mls/hr Documented by: Admin: 11/22/20 15:52 Dose: 150 mls/hr Documented by: TAMMI Reevaluation(s) Reevaluation #1: Patient feeling much better after 1 L of fluid, however she does have some symptomatic orthostasis with postural vitals and and elevation in her heart rate of 24 beats when standing. A 2 L of fluid ordered. Reevaluation #2: She feels tremendous improvement with no change and posturals after 2 L. She is ambulating to the room and requesting discharge. Vital Signs Vital signs: Vital Signs - 8 hr 11/22/20 19:00 11/22/20 19:30 11/22/20 19:33 Pulse Rate 81 88 80 Pulse Rate [Orthostatic Lying] Pulse Rate [Orthostatic Sitting] Pulse Rate [Orthostatic Standing] Respiratory Rate Blood Pressure 184/84 H Blood Pressure [Orthostatic Lying] Blood Pressure [Orthostatic Sitting] Blood Pressure [Orthostatic Standing] Pulse Oximetry 99 11/22/20 20:00 11/22/20 20:30 11/22/20 21:00 Pulse Rate 106 H 92 H 95 H Pulse Rate [Orthostatic Lying] Pulse Rate [Orthostatic Sitting] Pulse Rate [Orthostatic Standing] Respiratory Rate Blood Pressure 208/96 H Blood Pressure [Orthostatic Lying] Blood Pressure [Orthostatic Sitting] Blood Pressure [Orthostatic Standing] Pulse Oximetry 11/22/20 21:11 11/22/20 21:13 11/22/20 21:14 Pulse Rate 78 84 85 Pulse Rate [Orthostatic Lying] Pulse Rate [Orthostatic Sitting] Pulse Rate [Orthostatic Standing] Respiratory Rate Blood Pressure 190/81 H 200/93 H 195/89 H Blood Pressure [Orthostatic Lying] Blood Pressure [Orthostatic Sitting] Blood Pressure [Orthostatic Standing] Pulse Oximetry 99 99 99 11/22/20 21:17 11/22/20 21:30 11/22/20 22:07 Pulse Rate 72 82 Pulse Rate [Orthostatic Lying] 78 Pulse Rate [Orthostatic Sitting] 86 Pulse Rate [Orthostatic Standing] 98 H Respiratory Rate Blood Pressure 165/74 H Blood Pressure [Orthostatic Lying] 190/81 H Blood Pressure [Orthostatic Sitting] 200/93 H Blood Pressure [Orthostatic Standing] 195/89 H Pulse Oximetry 97 98 11/22/20 22:09 11/22/20 22:30 11/22/20 22:48 Pulse Rate 74 84 101 H Pulse Rate [Orthostatic Lying] Pulse Rate [Orthostatic Sitting] Pulse Rate [Orthostatic Standing] Respiratory Rate 24 32 H Blood Pressure 200/94 H 190/94 H Blood Pressure [Orthostatic Lying] Blood Pressure [Orthostatic Sitting] Blood Pressure [Orthostatic Standing] Pulse Oximetry 99 99 11/22/20 22:49 11/22/20 23:00 11/22/20 23:05 Pulse Rate 92 H 75 Pulse Rate [Orthostatic Lying] 90 Pulse Rate [Orthostatic Sitting] Pulse Rate [Orthostatic Standing] 102 H Respiratory Rate 24 15 Blood Pressure 189/87 H Blood Pressure [Orthostatic Lying] 189/87 H Blood Pressure [Orthostatic Sitting] Blood Pressure [Orthostatic Standing] 183/129 H Pulse Oximetry 99 MDM - Dizziness Lab Data Result diagrams: 11/22/20 15:50 11/22/20 15:50 Labs: Lab Results 11/22/20 11/22/20 11/22/20 Range/Units 15:50 15:50 15:50 WBC 7.3 (4.5-11.0) X10^3/uL RBC 4.09 (4.0-5.2) X10^6/uL Hgb 13.2 (12.0-16.0) g/dL Hct 39.1 (36-46) % MCV 95.5 (80-100) fL MCH 32.3 (26-34) PG MCHC 33.9 (30-36) % RDW 12.5 (11.6-14.8) % Plt Count 378 (150-400) X10^3/uL Neut % (Auto) 78.9 H (50-75) % Lymph % (Auto) 12.6 L (25-40) % Davidson % (Auto) 7.8 (3-14) % Eos % (Auto) 0.2 L (2-4) % Baso % (Auto) 0.5 (0-2) % Neut # (Auto) 5700 (1417-1145) /uL Lymph # (Auto) 900 L (8156-6483) /uL Davidson # (Auto) 600 (0-900) /uL Eos # (Auto) 0 (0-450) /uL Baso # (Auto) 0 (0-100) /uL Sodium 136 L (137-145) mmol/L Potassium 4.3 (3.4-5.1) mmol/L Chloride 103 (98-107) mmol/L Carbon Dioxide 24 (22-32) mmol/L BUN 19 H (7-17) mg/dL Creatinine 1.17 H (0.52-1.04) mg/dL Estimated GFR 44.4 L (>60) mL/min BUN/Creatinine Ratio 16.2 (6-22) Glucose 96 (80-110) mg/dL Lactate 1.4 (0.7-2.1) mmol/L Calcium 9.6 (8.4-10.2) mg/dL Total Bilirubin 0.3 (0.2-1.3) mg/dL AST 26 (14-36) IU/L ALT 13 (<35) IU/L Alkaline Phosphatase 119 (38-126) U/L Troponin I < 0.012 (0.01-0.034) ng/mL Total Protein 7.5 (6.3-8.2) g/dL Albumin 4.8 (3.5-5.0) g/dL Globulin 2.7 (1.7-4.1) g/dL Albumin/Globulin Ratio 1.8 (1.0-2.8) SARS-CoV-2 (PCR) (Negative) 11/22/20 Range/Units 18:18 WBC (4.5-11.0) X10^3/uL RBC (4.0-5.2) X10^6/uL Hgb (12.0-16.0) g/dL Hct (36-46) % MCV (80-100) fL MCH (26-34) PG MCHC (30-36) % RDW (11.6-14.8) % Plt Count (150-400) X10^3/uL Neut % (Auto) (50-75) % Lymph % (Auto) (25-40) % Davidson % (Auto) (3-14) % Eos % (Auto) (2-4) % Baso % (Auto) (0-2) % Neut # (Auto) (5420-6954) /uL Lymph # (Auto) (6850-1229) /uL Davidson # (Auto) (0-900) /uL Eos # (Auto) (0-450) /uL Baso # (Auto) (0-100) /uL Sodium (137-145) mmol/L Potassium (3.4-5.1) mmol/L Chloride (98-107) mmol/L Carbon Dioxide (22-32) mmol/L BUN (7-17) mg/dL Creatinine (0.52-1.04) mg/dL Estimated GFR (>60) mL/min BUN/Creatinine Ratio (6-22) Glucose (80-110) mg/dL Lactate (0.7-2.1) mmol/L Calcium (8.4-10.2) mg/dL Total Bilirubin (0.2-1.3) mg/dL AST (14-36) IU/L ALT (<35) IU/L Alkaline Phosphatase (38-126) U/L Troponin I (0.01-0.034) ng/mL Total Protein (6.3-8.2) g/dL Albumin (3.5-5.0) g/dL Globulin (1.7-4.1) g/dL Albumin/Globulin Ratio (1.0-2.8) SARS-CoV-2 (PCR) Negative (Negative) Urine Dip Bedside Urine Glucose Negative Bedside Urine Bilirubin - Negative Bedside Urine Ketone - Negative Urine Specific [place] 1.015 Bedside Urine Occult Blood - Negative Bedside Urine pH 6.0 Bedside Urine Protein - Negative Bedside Urine Urobilinogen - Negative Bedside Urine Nitrite - Negative Bedside Urine Leukocytes - Negative Esterase MDM Narrative Medical decision making narrative: Multiple etiologies for patient's symptoms considered including: [Cardiac disease versus electrolyte abnormality versus dehydration versus urinary tract infection versus pneumonia versus other] Patient's symptoms improved over duration of stay with above-stated therapies. Findings and discharge diagnosis discussed with patient/family followed by verbalization of understanding Return precautions discussed with patient/family whom verbalize understanding. Discharge Plan Departure Patient Disposition: Home Clinical Impression: Acute dehydration, Orthostatic hypotension Instructions: Orthostatic Hypotension Activity Restrictions/Additional Instructions: *You have been diagnosed with [dizziness, shakiness, improved fluids, suggesting dehydration] *What to do: *Please continue to take your regular medications as directed. [ ] New medication prescriptions sent to your pharmacy: [ ] [ ] New medication written as a paper prescription [x ] No new medications given *Please follow up with your primary care provider in 2-3 days, call for an appointment. Let them know you were seen in the Emergency Department and that we ask that you be seen in follow up. We will electronically transmit a record of today's note if your PCP is in our system *If you do not have a primary care provider please contact the [facility] Resource line at [phone]. They will ask some questions about your medical history and help get you set up with a doctor in the community. *Return to Emergency Department if you should have any new, worsening or concerning symptoms, such as [fever greater than 101 F, shaking chills, worsening pain, persistent vomiting or other bothersome symptoms] Prescriptions: No Action amlodipine [Norvasc] 10 mg tablet 10 mg PO Q DAY Qty: 90 RF: 3 cyanocobalamin (vitamin B-12) 1,000 mcg capsule 1,000 mcg PO DAILY Qty: 90 RF: 3 donepezil [Aricept] 5 mg tablet 5 mg PO DAILY Qty: 90 RF: 3 ferrous sulfate [Feosol] 325 mg (65 mg iron) tablet 325 mg PO BID Qty: 180 RF: 3 levothyroxine 75 mcg capsule 75 mcg PO DAILY Qty: 90 RF: 3 omeprazole 20 mg capsule,delayed release(DR/EC) 20 mg PO BID Qty: 180 RF: 3 simvastatin [Zocor] 20 mg tablet 20 mg PO Q DAY Qty: 90 RF: 3 tramadol 50 mg tablet 50 mg PO Q8H PRN (Reason: post operative pain) Qty: 20 RF: 0 docusate sodium 100 mg capsule 100 mg PO BID Qty: 20 RF: 0 Referrals: Nisreen Rose ARNP [Primary Care Provider] -
[2020-11-22 18:39] LABS: COVID19 -Nasal RAPID Negative (Negative)
== END 2020-11-22 23:25 | disposition home or self-care (01) ==
PROVIDERS: Emergency Medicine; Emergency Provider Emergency Medicine; PCP Nurse Practitioner
DX: I95.1 Orthostatic hypotension (principal); E86.0 Dehydration; Z20.822 Contact with and (suspected) exposure to COVID-19
CPT/HCPCS: 36415; 71045; 80053; 81003; 83605; 84484; 85025; 87635; 93005; 93010; 96360; 96361; 99284; C9803

== ENCOUNTER → 2021-03-09 09:38 | Outpatient (CLI) | payer OTHER, SELFPAY ==
[2021-03-09 10:43] LABS: Alanine Aminotransferase 13 IU/L (<35); Albumin 4.7 g/dL (3.5-5.0); Albumin Globulin Ratio 1.7 (1.0-2.8); Alkaline Phosphatase 92 U/L (38-126); Aspartate Aminotransferase 25 IU/L (14-36); BUN Creatinine Ratio 15.5 (6-22); Bilirubin Total 0.4 mg/dL (0.2-1.3); Blood Urea Nitrogen 16 mg/dL (7-17); Calcium 9.7 mg/dL (8.4-10.2); Carbon Dioxide 27 mmol/L (22-32); Chloride 100 mmol/L (98-107); Estimated Glomerular Filt Rate 51.3 mL/min (>60); Globulin 2.7 g/dL (1.7-4.1); Glucose 123 mg/dL (80-110); HEMOLYSIS < 15 (0-50); Potassium 4.1 mmol/L (3.4-5.1); Sodium 137 mmol/L (137-145); Total Protein 7.4 g/dL (6.3-8.2)
[2021-03-09 11:14] LABS: Thyroid Stimulating Hormone 13.2 uIU/mL (0.47-4.68)
== END ==
PROVIDERS: PCP Nurse Practitioner; Referring Provider Nurse Practitioner; Visit Provider Nurse Practitioner
DX: E03.9 Hypothyroidism, unspecified (principal); I10 Essential (primary) hypertension; N18.30 Chronic kidney disease, stage 3 unspecified
CPT/HCPCS: 36415; 80053; 84443

== ENCOUNTER → 2021-05-29 15:42 | Outpatient (CLI) | payer OTHER, SELFPAY ==
[2021-05-29 18:03] LABS: Thyroid Stimulating Hormone 4.45 uIU/mL (0.47-4.68)
== END ==
PROVIDERS: PCP Nurse Practitioner; Referring Provider Nurse Practitioner; Visit Provider Nurse Practitioner
DX: E03.9 Hypothyroidism, unspecified (principal); Z79.899 Other long term (current) drug therapy
CPT/HCPCS: 36415; 84443

== ENCOUNTER → 2021-07-31 10:26 | Outpatient (CLI) | payer OTHER, SELFPAY ==
[2021-08-01 09:33] LABS: Fecal Immunochemical Test Positive (Negative)
== END ==
PROVIDERS: PCP Nurse Practitioner; Referring Provider Nurse Practitioner; Visit Provider Nurse Practitioner
DX: K92.1 Melena (principal)
CPT/HCPCS: 82274

== ENCOUNTER → 2021-08-02 10:22 | Outpatient (CLI) | payer OTHER, SELFPAY ==
[2021-08-02 14:57] LABS: Occult Blood 1 Negative (Negative); Occult Blood 2 Negative (Negative)
== END ==
PROVIDERS: PCP Nurse Practitioner; Referring Provider Nurse Practitioner; Visit Provider Nurse Practitioner
DX: K92.1 Melena (principal)
CPT/HCPCS: 82270

== ENCOUNTER → 2021-09-06 12:55 | Outpatient (CLI) | payer OTHER, SELFPAY ==
[2021-09-06 15:01] LABS: COVID19 -Nasal RAPID Negative (Negative)
== END ==
PROVIDERS: PCP Nurse Practitioner; Visit Provider Surgery
DX: Z01.812 Encounter for preprocedural laboratory examination (principal); Z20.822 Contact with and (suspected) exposure to COVID-19
CPT/HCPCS: 87635; C9803

== ENCOUNTER 2021-09-07 06:49 | Day surgery (SDC) | payer OTHER, SELFPAY ==
[2021-09-07 07:17] VITALS: BMI 28.3
[2021-09-07 07:27] VITALS: BP 185/85; PULSE 94; RESP 16; TEMP 37; O2SAT 100
--- NOTE | 2021-09-07 07:39 | PM.PREOP ---
Pre-operative Note COVID-19 COVID-19 status: Negative Result date/Date tested (Pos, Neg/Pending): 09/06/21 Interval Note History & Physical reviewed/Exam performed by Physician: Yes Changes to H&P: No H&P completed within 30 days and has changed as indicated here:: Verbal consent obtained from tanya Neville over the phone
[2021-09-07] MEDS: LACTATED RINGERS 1,000 ML 42 ML IV (07:47)
--- NOTE | 2021-09-07 07:49 | SUR.PREOP ---
09/07/[id number]-Spefdamry consent with Dr Mullins by phone done, Son Jamin has POA. patient given verbal instructions for home care.but will need to be reviewed with son afterwards,due to dementia.
[2021-09-07] MEDS: fentaNYL 250 MCG/5 ML INJ 50 MCG IV (07:59)
[2021-09-07] MEDS: MIDAZOLAM 5 MG/5 ML VIAL 6 MG IV (08:02)
--- NOTE | 2021-09-07 08:06 | PM.OP.EGD ---
Operative Date/Time/Diagnoses Date of procedure: 09/07/21 Time of procedure: 08:07 Pre-op diagnosis: Melena Post-op diagnosis: same Procedure & Clinicians Study performed: Esophagogastroduodenoscopy Same procedure as scheduled: Yes Indications: Melena Surgeon: Husam Mullins Procedure Notes Procedure in detail: A timeout was performed. A bite blocked was placed. The patient was positioned in the left lateral decubitus position. The endoscope was inserted through the bite block and passed through the esophagus and stomach and into the duodenum. 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 The scope was withdrawn into the duodenal bulb and a medium-size angiodysplasia was noted along with 1 or 2 small angiodysplasias. There was no evidence of recent bleeding. A single clip was deployed over the larger angiodysplasia. The scope was withdrawn into the stomach. No abnormalities were noted. The scope was retroflexed and no abnormalities were noted. The scope was withdrawn into the esophagus and a subtle distal esophageal ring was noted. The remainder of the esophagus was normal. The scope was withdrawn. The patient was awakened and brought to recovery. EBL: 10 mL Sedation minutes: 11 Findings: vascular ectasias Specimen(s): none sent Post-procedure Disposition: PACU
[2021-09-07 08:11] VITALS: BP 122/63; PULSE 80; RESP 20; TEMP 36.2; O2SAT 94
[2021-09-07 08:14] VITALS: BP 110/57; PULSE 74; RESP 20; O2SAT 95
[2021-09-07 08:17] VITALS: BP 104/50; PULSE 67; RESP 21; O2SAT 94
[2021-09-07 08:20] VITALS: BP 106/53; PULSE 67; RESP 19; O2SAT 95
[2021-09-07 08:25] VITALS: BP 108/55; PULSE 68; RESP 16; TEMP 36.2; O2SAT 98
== END 2021-09-07 08:27 | disposition home or self-care (01) ==
PROVIDERS: PCP Nurse Practitioner; Referring Provider Surgery; Visit Provider Surgery
PROC: 0DJ08ZZ Inspection of Upper Intestinal Tract, Via Natural or Artificial Opening Endoscopic (ICD-10-PCS; CPT 43235; principal; 2021-09-07 07:45)
DX: K31.819 Angiodysplasia of stomach and duodenum without bleeding (principal)
CPT/HCPCS: 43235; 99152; J2250; J3010

== ENCOUNTER → 2021-12-22 10:12 | Outpatient (CLI) | payer OTHER, SELFPAY | PROVIDERS: PCP Nurse Practitioner; Referring Provider Nurse Practitioner; Visit Provider Nurse Practitioner | DX: E03.9 Hypothyroidism, unspecified (principal); Z79.899 Other long term (current) drug therapy | CPT/HCPCS: 36415; 84443 ==

== ENCOUNTER 2022-06-13 11:29 | Emergency (ER) | payer OTHER, SELFPAY ==
[2022-06-13] VITALS (8 sets, daily range): BP systolic 154–192; BP diastolic 68–108; PULSE 71–94; RESP 18; TEMP 36.3; O2SAT 94–99; BMI 24.6
--- NOTE | 2022-06-13 11:49 | DI.RAD.S_ITS ---
PROCEDURE: XR CHEST 1V INDICATIONS: chest pain TECHNIQUE: One view of the chest was acquired. COMPARISON: [facility], CR, XR CHEST 1V, 11/22/2020, 15:50. [facility], CR, XR CHEST 1V, 03/24/2020, 17:30. FINDINGS: Surgical changes and devices: Median sternotomy wires are present. Lungs and pleura: Lungs are clear. No pleural effusions or pneumothorax. Mediastinum: Cardiac silhouette is at the upper limit of normal in size. Mediastinal and hilar contours appear similar to before. Bones and chest wall: No suspicious bony lesions. Overlying soft tissues appear unremarkable. IMPRESSION: No acute cardiopulmonary abnormality. Dictated by: Herve Oscar M.D. on 06/13/2022 at 13:08 Approved by: Herve Oscar M.D. on 06/13/2022 at 13:12
--- NOTE | 2022-06-13 12:14 | ED.AMS ---
HPI - Altered Mental Status General Chief Complaint: Altered Mental Status Stated Complaint: shakey/dizzy/stutters when talking Time Seen by Provider: 06/13/22 11:57 Source: patient and family Mode of arrival: Family Vehicle Limitations: altered mental status History of Present Illness HPI narrative: Patient is an 81-year-old lady with hypertension, hyperlipidemia, breast cancer, hypothyroidism and anxiety. She takes Aricept for dementia. Her son brought her to the hospitalist morning, patient complaining she does not feel well. She would dyspnea earlier she has no dyspnea now. She does not seem to have been ill recently. She is having no chest pain, no orthopnea or peripheral edema. She denies recent illness. She has a very poor historian, with her severe dementia. She gives no other detail. Related Data Previous Rx's Medication Instructions Recorded cyanocobalamin (vitamin B-12) 1,000 mcg PO DAILY #90 caps 08/15/20 1,000 mcg capsule ferrous sulfate 325 mg (65 mg 325 mg PO BID #180 tabs 08/15/20 iron) tablet (Feosol) amlodipine 10 mg tablet (Norvasc) 10 mg PO Q DAY #90 tabs 08/21/21 omeprazole 20 mg capsule,delayed See Rx Instructions .Route 11/15/21 release .COMPLEX #180 caps simvastatin 20 mg tablet See Rx Instructions .Route 12/18/21 .COMPLEX #90 tabs levothyroxine 75 mcg tablet 75 mcg PO DAILY #90 tabs 12/25/21 donepezil 5 mg tablet (Aricept) 5 mg PO DAILY #90 tabs 03/08/22 Allergies Allergy/AdvReac Type Severity Reaction Status Date / Time Penicillins [PENICILLINS] Allergy Unknown CHILDHOOD Verified 12/25/21 15:15 Review of Systems Review of Systems Narrative: Unavailable due to the patient's mental status. Patient History Medical History Anemia Breast cancer, right CKD (chronic kidney disease) stage 3, GFR 30-59 ml/min Dizziness on standing Easy bruisability Frequent UTI GERD (gastroesophageal reflux disease) Hematochezia Hyperlipemia Hypertension Hypothyroidism Mass of right breast Positive FIT (fecal immunochemical test) Symptomatic anemia Vaginal candidiasis Vaginal irritation Surgical History History of esophagogastroduodenoscopy (EGD) (04/2020) History of tonsillectomy Hx of endarterectomy (1989) Hx of hand surgery (09/2015) Status post appendectomy Status post arthroscopy Status post colonoscopy Status post hysterectomy Family History Father Diabetes mellitus Hypertension Heart disease Mother Hypertension Social History marital status: unknown household members: family Smoking Status: Former smoker alcohol intake: current substance use type: does not use Smoking Status: Former smoker alcohol intake frequency: 0-2 drinks per day Substance Use Type: does not use Exam Initial Vital Signs Initial Vital Signs: Vital Signs Pulse Rate 89 06/13/22 11:39 Pulse Oximetry 99 06/13/22 11:39 Const General: cooperative, well hydrated and other (Alert. Pleasant. Very poor historian.) Nutritional Appearance: thin Orientation: Orientation (Oriented to person.) Limitations: altered mental status HENMT Head: normal to inspection Ears: TM's normal bilaterally Nose: nares normal Face and sinus: normal facial exam Mouth: oral mucosae normal Eyes General: Yes appearance normal, both eyes and all related structures Conjunctivae: conjunctivae normal Sclera: sclerae normal Pupils: PERRL EOM: EOM intact bilaterally Neck Neck: normal visual inspection Resp Effort & Inspection: normal respiratory effort Cardio Palpation: normal PMI Rate: regular rate Rhythm: regular rhythm GI Palpation: soft and no hepatosplenomegaly Auscultation: normal bowel sounds Back/Spine/Pelvis Back: normal to inspection Skin General: no rashes or lesions noted Neuro General: patient alert, patient awake and oriented (Person.) Cranial Nerves: CN's II-XI intact bilaterally Motor: muscle tone normal throughout Sensory Exam: no sensory deficits noted Coordination: [id number] test normal and [id number] test normal Extrem General: normal to inspection, full ROM, no pedal edema and no calf tenderness Psych Speech and Movement: speech and movement normal Mood: anxious mood Other: Memory deficit. Poor historian. Course Course Course Narrative: The patient was escorted here by her son. She has no specific complaints. She is clearly anxious, asking to go home shortly after arrival. She had dyspnea on exertion, she is no hypoxia or dyspnea here. That may have been anxiety. There is no obvious infection, no obvious cardiopulmonary issues, and no acute neurologic deficits. She is discharged home on current medications with instructions to follow up with her PCM. The situation was discussed with the patient's son, Jamin Miller. He suggest the dyspnea may have been a panic attack. Orders Ordered: ED Orders 06/13/22 11:49 XR chest 1V Stat 06/13/22 12:22 EKG-12 Lead Stat 06/13/22 12:30 Complete Blood Count AUTO DIFF Stat Comprehensive Metabolic Panel Stat D Dimer Stat Lipase Stat Magnesium Stat NT-proBNP (BNP-Adult 18+) Stat Partial Thromboplastin Time Stat Prothrombin Time INR Stat TSH w/ Reflex to FT4 Stat Troponin & CK Cardiac Panel Stat Discontinued Medications Hydroxyzine Pamoate (Hydroxyzine Pamoate 25 Mg Capsule) 12.5 mg PO NOW ONE Stop: 06/13/22 12:11 Last Admin: 06/13/22 13:09 Dose: Not Given Documented By: PERLITA Hydroxyzine Pamoate (Hydroxyzine Pamoate 25 Mg Capsule) 25 mg PO NOW ONE Stop: 06/13/22 13:10 Last Admin: 06/13/22 13:31 Dose: 25 mg Documented By: RB Vital Signs Vital signs: Vital Signs - 8 hr 06/13/22 11:40 06/13/22 11:39 06/13/22 12:00 Temperature 97.4 F L Pulse Rate 84 89 Respiratory Rate 18 Blood Pressure 182/82 H 154/68 H Pulse Oximetry 99 99 Oxygen Delivery Method Room Air 06/13/22 12:00 06/13/22 12:30 06/13/22 12:32 Temperature Pulse Rate 76 72 71 Respiratory Rate Blood Pressure Pulse Oximetry 98 97 98 Oxygen Delivery Method 06/13/22 12:32 06/13/22 13:00 06/13/22 13:30 Temperature Pulse Rate 77 Respiratory Rate Blood Pressure 185/78 H 192/108 H Pulse Oximetry 97 Oxygen Delivery Method 06/13/22 13:30 06/13/22 13:45 06/13/22 13:45 Temperature Pulse Rate 94 H 75 Respiratory Rate Blood Pressure 177/99 H Pulse Oximetry 94 98 Oxygen Delivery Method MDM - Altered Mental Status Lab Data 06/13/22 12:30 06/13/22 12:30 Labs: Lab Results 06/13/22 06/13/2206/13/23 Range/Units 12:30 12:30 12:30 WBC 6.4 (4.5-11.0) X10^3/uL RBC 3.71 L (4.0-5.2) X10^6/uL Hgb 11.7 L (12.0-16.0) g/dL Hct 34.5 L (36-46) % MCV 92.9 (80-100) fL MCH 31.6 (26-34) PG MCHC 34.0 (30-36) % RDW 13.5 (11.6-14.8) % Plt Count 340 (150-400) X10^3/uL Neut % (Auto) 82.6 H (50-75) % Lymph % (Auto) 7.8 L (25-40) % [place] % (Auto) 8.6 (3-14) % Eos % (Auto) 0.5 L (2-4) % Baso % (Auto) 0.5 (0-2) % Neut # (Auto) 5300 (8980-6464) /uL Lymph # (Auto) 500 L (0558-5563) /uL [place] # (Auto) 500 (0-900) /uL Eos # (Auto) 0 (0-450) /uL Baso # (Auto) 0 (0-100) /uL PT 12.5 (10.1-12.7) SECONDS INR 1.1 (0.9-1.3) APTT 30 (26-36) SECONDS D-Dimer (<500) ng/ml Sodium 135 L (137-145) mmol/L Potassium 4.0 (3.4-5.1) mmol/L Chloride 101 (98-107) mmol/L Carbon Dioxide 23 (22-32) mmol/L BUN 20 H (7-17) mg/dL Creatinine 0.91 (0.52-1.04) mg/dL Estimated GFR > 60 (>60) mL/min BUN/Creatinine Ratio 22.0 (6-22) Glucose 99 (80-110) mg/dL Calcium 8.9 (8.4-10.2) mg/dL Magnesium 2.1 (1.6-2.3) mg/dL Total Bilirubin 0.4 (0.2-1.3) mg/dL AST 25 (14-36) IU/L ALT 18 (<35) IU/L Alkaline Phosphatase 118 (38-126) U/L Total Creatine Kinase 86 (30-135) U/L CK-MB (CK-2) TNP CK-MB (CK-2) Rel Index TNP Troponin I < 0.012 (0.01-0.034) ng/mL NT-Pro-B Natriuret Pep (<450) pg/mL Total Protein 7.3 (6.3-8.2) g/dL Albumin 4.5 (3.5-5.0) g/dL Globulin 2.8 (1.7-4.1) g/dL Albumin/Globulin Ratio 1.6 (1.0-2.8) Lipase 104 (23-300) U/L TSH (0.47-4.68) uIU/mL 06/13/22 06/13/22 06/13/22 Range/Units 12:30 12:30 12:30 WBC (4.5-11.0) X10^3/uL RBC (4.0-5.2) X10^6/uL Hgb (12.0-16.0) g/dL Hct (36-46) % MCV (80-100) fL MCH (26-34) PG MCHC (30-36) % RDW (11.6-14.8) % Plt Count (150-400) X10^3/uL Neut % (Auto) (50-75) % Lymph % (Auto) (25-40) % [place] % (Auto) (3-14) % Eos % (Auto) (2-4) % Baso % (Auto) (0-2) % Neut # (Auto) (5472-5170) /uL Lymph # (Auto) (0749-3145) /uL [place] # (Auto) (0-900) /uL Eos # (Auto) (0-450) /uL Baso # (Auto) (0-100) /uL PT (10.1-12.7) SECONDS INR (0.9-1.3) APTT (26-36) SECONDS D-Dimer 503 H (<500) ng/ml Sodium (137-145) mmol/L Potassium (3.4-5.1) mmol/L Chloride (98-107) mmol/L Carbon Dioxide (22-32) mmol/L BUN (7-17) mg/dL Creatinine (0.52-1.04) mg/dL Estimated GFR (>60) mL/min BUN/Creatinine Ratio (6-22) Glucose (80-110) mg/dL Calcium (8.4-10.2) mg/dL Magnesium (1.6-2.3) mg/dL Total Bilirubin (0.2-1.3) mg/dL AST (14-36) IU/L ALT (<35) IU/L Alkaline Phosphatase (38-126) U/L Total Creatine Kinase (30-135) U/L CK-MB (CK-2) CK-MB (CK-2) Rel Index Troponin I (0.01-0.034) ng/mL NT-Pro-B Natriuret Pep 344 (<450) pg/mL Total Protein (6.3-8.2) g/dL Albumin (3.5-5.0) g/dL Globulin (1.7-4.1) g/dL Albumin/Globulin Ratio (1.0-2.8) Lipase (23-300) U/L TSH 3.66 (0.47-4.68) uIU/mL Urine Dip Bedside Urine Glucose Negative Bedside Urine Bilirubin - Negative Bedside Urine Ketone - Negative Urine Specific [place] 1.010 Bedside Urine Occult Blood - Negative Bedside Urine pH 6.5 Bedside Urine Protein - Negative Bedside Urine Urobilinogen - Negative Bedside Urine Nitrite - Negative Bedside Urine Leukocytes - Negative Esterase Imaging Data Chest x-ray: Radiologist's Impression: No acute cardiopulmonary process. ECG Data Attestation: I personally reviewed and interpreted this ECG as follows: (Normal sinus rhythm rate 73 beats per minute. PVCs. Normal intervals otherwise noted. No acute ST changes.) Discharge Plan Departure Patient Disposition: Home Clinical Impression: Dyspnea, Dementia, Anxiety Instructions: DI for Shortness of Breath Activity Restrictions/Additional Instructions: For re-evaluation shows no obvious cardiac, respiratory, infectious or neurologic deficits. She did display anxiety, she is a poor historian. There is no reason to change her current medications, or seek hospitalization. Continue current medications. Follow up with the regular doctor. Return here as needed. Prescriptions: No Action amlodipine [Norvasc] 10 mg tablet 10 mg PO Q DAY Qty: 90 3RF Label Comments: patient unsure omeprazole 20 mg capsule,delayed release(DR/EC) See Rx Instructions .ROUTE .COMPLEX Qty: 180 3RF Dose Instruction: TAKE 1 CAPSULE(20 MG) BY MOUTH TWICE DAILY FOR GERD Rx Instructions: TAKE 1 CAPSULE(20 MG) BY MOUTH TWICE DAILY FOR GERD simvastatin 20 mg tablet See Rx Instructions .ROUTE .COMPLEX Qty: 90 3RF Dose Instruction: TAKE 1 TABLET BY MOUTH DAILY FOR LIPIDS/ CHOLESTEROL Rx Instructions: TAKE 1 TABLET BY MOUTH DAILY FOR LIPIDS/ CHOLESTEROL donepezil [Aricept] 5 mg tablet 5 mg PO DAILY Qty: 90 3RF Label Comments: patient unsure Rx Instructions: Take 1 tablet by mouth daily for memory levothyroxine 75 mcg tablet 75 mcg PO DAILY Qty: 90 1RF cyanocobalamin (vitamin B-12) 1,000 mcg capsule 1,000 mcg PO DAILY Qty: 90 3RF Label Comments: patient unsure Rx Instructions: Take 1 tablet by mouth daily ferrous sulfate [Feosol] 325 mg (65 mg iron) tablet 325 mg PO BID Qty: 180 3RF Label Comments: patient unsure Rx Instructions: Take 1 tablet by mouth twice daily. Referrals: Nisreen Rose ARNP [Primary Care Provider] - Stand Alone Forms: Patient Portal/API
[2022-06-13 12:46] LABS: Add Manual Diff / Slide Review NO; Basophils Absolute Auto 0 /uL (0-100); Basophils Percent Auto 0.5 % (0-2); Eosinophils Absolute Auto 0 /uL (0-450); Eosinophils Percent Auto 0.5 % (2-4); Hematocrit 34.5 % (36-46); Hemoglobin 11.7 g/dL (12.0-16.0); Lymphocytes Absolute Auto 500 /uL (1100-4500); Lymphocytes Percent Auto 7.8 % (25-40); Mean Corpuscular Hemoglobin 31.6 PG (26-34); Mean Corpuscular Volume 92.9 fL (80-100); Monocytes Absolute Auto 500 /uL (0-900); Monocytes Percent Auto 8.6 % (3-14); Neutrophils Absolute Auto 5300 /uL (1500-7000); Neutrophils Percent Auto 82.6 % (50-75); Platelet Count 340 X10^3/uL (150-400); Red Blood Cell Count 3.71 X10^6/uL (4.0-5.2); Red Cell Distribution Width 13.5 % (11.6-14.8); White Blood Cell Count 6.4 X10^3/uL (4.5-11.0)
[2022-06-13 12:58] LABS: INR 1.1 (0.9-1.3); Prothrombin Time 12.5 SECONDS (10.1-12.7)
[2022-06-13 13:01] LABS: PTT Partial Thromboplastin Tim 30 SECONDS (26-36)
[2022-06-13 13:02] LABS: D Dimer 503 ng/ml (<500)
[2022-06-13 13:03] LABS: Alanine Aminotransferase 18 IU/L (<35); Albumin 4.5 g/dL (3.5-5.0); Albumin Globulin Ratio 1.6 (1.0-2.8); Alkaline Phosphatase 118 U/L (38-126); Aspartate Aminotransferase 25 IU/L (14-36); Bilirubin Total 0.4 mg/dL (0.2-1.3); Blood Urea Nitrogen 20 mg/dL (7-17); Calcium 8.9 mg/dL (8.4-10.2); Carbon Dioxide 23 mmol/L (22-32); Chloride 101 mmol/L (98-107); Creatine Kinase 86 U/L (30-135); Estimated Glomerular Filt Rate > 60 mL/min (>60); Globulin 2.8 g/dL (1.7-4.1); Glucose 99 mg/dL (80-110); HEMOLYSIS < 15 (0-50); Lipase 104 U/L (23-300); Magnesium 2.1 mg/dL (1.6-2.3); Sodium 135 mmol/L (137-145); Total Protein 7.3 g/dL (6.3-8.2)
[2022-06-13 13:12] LABS: NT-proBNP (BNP-Adult 18+) 344 pg/mL (<450)
[2022-06-13 13:14] LABS: Troponin I < 0.012 ng/mL (0.01-0.034)
[2022-06-13] MEDS: hydrOXYzine pamoate 25 MG CAPSULE PO (13:31)
[2022-06-13 13:34] LABS: TSH w/ Reflex to FT4 3.66 uIU/mL (0.47-4.68)
== END 2022-06-13 14:48 | disposition home or self-care (01) ==
PROVIDERS: Emergency Provider Emergency Medicine; PCP Nurse Practitioner
DX: R06.00 Dyspnea, unspecified (principal); F03.90 Unspecified dementia, unspecified severity, without behavioral disturbance, psychotic disturbance, mood disturbance, and anxiety; F41.9 Anxiety disorder, unspecified; R07.9 Chest pain, unspecified
CPT/HCPCS: 36415; 71045; 80053; 81003; 82550; 83690; 83735; 83880; 84443; 84484; 85025; 85379; 85610; 85730; 93005; 99284

== ENCOUNTER 2022-10-06 14:25 | Emergency (ER) | payer OTHER, SELFPAY ==
[2022-10-06] VITALS (11 sets, daily range): BP systolic 179–199; BP diastolic 81–118; PULSE 73–92; RESP 20–28; TEMP 36.8; O2SAT 95–99
--- NOTE | 2022-10-06 14:32 | DI.RAD.S_ITS ---
PROCEDURE: XR CHEST 1V INDICATIONS: weak, shakey TECHNIQUE: One view of the chest was acquired. COMPARISON: [facility], CR, XR CHEST 1V, 06/13/2022, 11:46. FINDINGS: Surgical changes and devices: Median sternotomy changes. Lungs and pleura: Lungs are clear. No pleural effusions or pneumothorax. Mediastinum: Mediastinal contours appear normal. Heart size is normal. Bones and chest wall: No suspicious bony lesions. Overlying soft tissues appear unremarkable. IMPRESSION: No acute cardiopulmonary disease. Dictated by: Rika Ontiveros M.D. on 10/06/2022 at 13:59 Approved by: Rika Ontiveros M.D. on 10/06/2022 at 13:59
--- NOTE | 2022-10-06 14:33 | ED.GENADULT ---
HPI - General Adult General Chief complaint: Weakness Stated complaint: feeling bad/shaky/weak x7 days Time Seen by Provider: 10/06/22 14:32 History of Present Illness HPI narrative: 81-year-old female former smoker with history of chronic kidney disease, breast cancer, dementia, elevated blood pressure without diagnosis of hypertension, vision disorder, and hearing loss presents with a chief complaint of feeling bad for the past week or so. She has very little in terms of specific complaints but states that she feels a bit shaky and weak off and on for the past 7 days. She denies any headache or blurred vision. She has no runny nose, sore throat or cough. She has no chest pain or shortness of breath. She denies nausea, vomiting or diarrhea. She has no urinary complaints. She states she has no change in her medications or diet. Related Data Previous Rx's Medication Instructions Recorded cyanocobalamin (vitamin B-12) 1,000 mcg PO DAILY #90 caps 08/15/20 1,000 mcg capsule ferrous sulfate 325 mg (65 mg 325 mg PO BID #180 tabs 08/15/20 iron) tablet (Feosol) omeprazole 20 mg capsule,delayed See Rx Instructions .Route 11/15/21 release .COMPLEX #180 caps simvastatin 20 mg tablet See Rx Instructions .Route 12/18/21 .COMPLEX #90 tabs donepezil 5 mg tablet (Aricept) 5 mg PO DAILY #90 tabs 03/08/22 alprazolam 0.25 mg tablet 0.125 mg PO DAILY PRN anxiety, 06/19/22 panic attacks #20 tabs memantine 5 mg tablet 5 mg PO QAM #30 tabs 06/19/22 levothyroxine 75 mcg tablet See Rx Instructions .Route 07/02/22 .COMPLEX #90 tabs amlodipine 10 mg tablet See Rx Instructions .Route 08/28/22 .COMPLEX #90 tabs sulfamethoxazole 800 1 tab PO BID 5 days #10 tabs 10/06/22 mg-trimethoprim 160 mg tablet (Bactrim DS) Allergies Allergy/AdvReac Type Severity Reaction Status Date / Time Penicillins [PENICILLINS] Allergy Unknown CHILDHOOD Verified 06/19/22 11:01 Review of Systems Review of Systems Narrative: GENERAL: See HPI HEENT: Denies sinus pain, ear pain, sore throat, difficulty swallowing, dizziness. RESPIRATORY: Denies dyspnea, cough, wheezing, hemoptysis, sputum. CARDIOVASCULAR: Denies chest pain, palpitations, orthopnea, edema, GASTROINTESTINAL: Denies nausea, vomiting, abdominal pain, diarrhea, constipation, melena. : Denies dysuria, frequency, incontinence, hematuria, urinary retention. MUSCULOSKELETAL: denies weakness, joint pain, or bony pain SKIN: Denies rash, skin lesions, or other NEUROLOGIC: See HPI PSYCHIATRIC: No concerning psychosocial issues. 12 point review of systems is negative except for those stated above Patient History Medical History Anemia Breast cancer, right CKD (chronic kidney disease) stage 3, GFR 30-59 ml/min Dizziness on standing Easy bruisability Frequent UTI GERD (gastroesophageal reflux disease) Hearing loss Hematochezia Hyperlipemia Hypertension Hypothyroidism Mass of right breast Positive FIT (fecal immunochemical test) Skin cancer Symptomatic anemia Vaginal candidiasis Vaginal irritation Vision disorder Surgical History History of esophagogastroduodenoscopy (EGD) (04/2020) History of tonsillectomy Hx of endarterectomy (1989) Hx of hand surgery (09/2015) Status post appendectomy Status post arthroscopy Status post colonoscopy Status post hysterectomy Family History Father Diabetes mellitus Hypertension Heart disease Mother Hypertension Alzheimer's disease Social History marital status: unknown household members: family Smoking Status: Former smoker alcohol intake: current substance use type: does not use Smoking Status: Former smoker alcohol intake frequency: 0-2 drinks per day Substance Use Type: does not use Exam Narrative Exam Narrative: GENERAL: [81] year old patient appears stated age. Well-developed patient, in mild distress. Bit anxious HEAD: Atraumatic. Normocephalic. EYES: Pupils equal round and reactive. Extraocular motions intact. No scleral icterus. No injection or drainage. ENT: Nose without bleeding, purulent drainage. Throat without erythema, tonsillar hypertrophy or exudate. Airway patent. NECK: Trachea midline. Non tender CARDIOVASCULAR: Regular rate and rhythm without murmurs, gallops, or rubs. RESPIRATORY: Clear to auscultation. Breath sounds equal bilaterally. No wheezes, rales, or rhonchi. GASTROINTESTINAL: Abdomen soft, non-tender, nondistended. EXTREMITIES: No edema or joint tenderness. BACK: Nontender without deformity or crepitance. No flank tenderness. NEURO: AOx3. SKIN: No rash or erythema of visible areas Initial Vital Signs Initial Vital Signs: Vital Signs Temperature 98.2 F 10/06/22 14:30 Pulse Rate 92 H 10/06/22 14:30 Respiratory Rate 20 10/06/22 14:30 Blood Pressure 179/82 H 10/06/22 14:30 Pulse Oximetry 99 10/06/22 14:30 Oxygen Delivery Method Room Air 10/06/22 14:30 Course Orders Ordered: ED Orders 10/06/22 14:32 Chest [XR chest 1V] Stat 10/06/22 14:50 EKG-12 Lead Stat 10/06/22 14:53 Complete Blood Count AUTO DIFF Stat Comprehensive Metabolic Panel Stat Lactate (Lactic Acid) Stat Lipase Stat Magnesium Stat NT-proBNP (BNP-Adult 18+) Stat Prothrombin Time INR Stat Troponin & CK Cardiac Panel Stat 10/06/22 15:20 Blood Culture Stat 10/06/22 15:34 Urine Culture Stat Urine Microscopic Stat Discontinued Medications Amlodipine Besylate (Amlodipine 5 Mg Tablet) 10 mg PO NOW ONE Stop: 10/06/22 16:08 Trimethoprim/Sulfamethoxazole (Trimeth/Sulfa 160/800 (Ds) Tablet) 1 tab PO NOW ONE Stop: 10/06/22 16:14 Vital Signs Vital signs: Vital Signs - 8 hr 10/06/22 14:30 10/06/22 14:33 10/06/22 14:34 Temperature 98.2 F Pulse Rate 92 H 83 Respiratory Rate 20 Blood Pressure 179/82 H 179/82 H Pulse Oximetry 99 98 Oxygen Delivery Method Room Air 10/06/22 14:34 10/06/22 14:57 10/06/22 14:57 Temperature Pulse Rate 83 80 Respiratory Rate 28 H Blood Pressure 195/87 H Pulse Oximetry 98 98 Oxygen Delivery Method 10/06/22 15:00 10/06/22 15:03 10/06/22 15:03 Temperature Pulse Rate 76 76 Respiratory Rate 23 28 H Blood Pressure 197/89 H Pulse Oximetry 98 98 Oxygen Delivery Method 10/06/22 15:33 10/06/22 15:34 10/06/22 15:34 Temperature Pulse Rate 81 80 Respiratory Rate 21 Blood Pressure 188/81 H Pulse Oximetry 95 98 Oxygen Delivery Method 10/06/22 15:59 10/06/22 16:00 Temperature Pulse Rate 73 Respiratory Rate 21 Blood Pressure 199/118 H Pulse Oximetry 98 Oxygen Delivery Method Medical Decision Making Lab Data 10/06/22 14:53 10/06/22 14:53 Labs: Lab Results 10/06/22 10/06/22 10/06/22 Range/Units 14:53 14:53 14:53 WBC 6.9 (4.5-11.0) X10^3/uL RBC 3.95 L (4.0-5.2) X10^6/uL Hgb 12.1 (12.0-16.0) g/dL Hct 35.8 L (36-46) % MCV 90.7 (80-100) fL MCH 30.6 (26-34) PG MCHC 33.8 (30-36) % RDW 13.2 (11.6-14.8) % Plt Count 369 (150-400) X10^3/uL Neut % (Auto) 77.7 H (50-75) % Lymph % (Auto) 12.3 L (25-40) % [place] % (Auto) 8.0 (3-14) % Eos % (Auto) 1.2 L (2-4) % Baso % (Auto) 0.8 (0-2) % Neut # (Auto) 5400 (3953-9240) /uL Lymph # (Auto) 900 L (5282-9116) /uL [place] # (Auto) 600 (0-900) /uL Eos # (Auto) 100 (0-450) /uL Baso # (Auto) 100 (0-100) /uL PT 12.2 (10.1-12.7) SECONDS INR 1.1 (0.9-1.3) Sodium 135 L (137-145) mmol/L Potassium 3.9 (3.4-5.1) mmol/L Chloride 102 (98-107) mmol/L Carbon Dioxide 22 (22-32) mmol/L BUN 28 H (7-17) mg/dL Creatinine 0.96 (0.52-1.04) mg/dL Estimated GFR 59 L (>60) mL/min BUN/Creatinine Ratio 29.2 H (6-22) Glucose 126 H (80-110) mg/dL Lactate (0.7-2.1) mmol/L Calcium 8.7 (8.4-10.2) mg/dL Magnesium 2.1 (1.6-2.3) mg/dL Total Bilirubin 0.2 (0.2-1.3) mg/dL AST 24 (14-36) IU/L ALT 18 (<35) IU/L Alkaline Phosphatase 106 (38-126) U/L Total Creatine Kinase 85 (30-135) U/L CK-MB (CK-2) TNP CK-MB (CK-2) Rel Index TNP Troponin I < 0.012 (0.01-0.034) ng/mL NT-Pro-B Natriuret Pep 388 (<450) pg/mL Total Protein 7.3 (6.3-8.2) g/dL Albumin 4.5 (3.5-5.0) g/dL Globulin 2.8 (1.7-4.1) g/dL Albumin/Globulin Ratio 1.6 (1.0-2.8) Lipase 139 (23-300) U/L Urine RBC (0-5/HPF) Urine WBC (0-5/HPF) Ur Squamous Epith Cells (0-5/HPF) Urine Bacteria (None) Ur Culture Indicated? 10/06/22 10/06/22 Range/Units 14:53 15:34 WBC (4.5-11.0) X10^3/uL RBC (4.0-5.2) X10^6/uL Hgb (12.0-16.0) g/dL Hct (36-46) % MCV (80-100) fL MCH (26-34) PG MCHC (30-36) % RDW (11.6-14.8) % Plt Count (150-400) X10^3/uL Neut % (Auto) (50-75) % Lymph % (Auto) (25-40) % [place] % (Auto) (3-14) % Eos % (Auto) (2-4) % Baso % (Auto) (0-2) % Neut # (Auto) (6183-0192) /uL Lymph # (Auto) (8496-3461) /uL [place] # (Auto) (0-900) /uL Eos # (Auto) (0-450) /uL Baso # (Auto) (0-100) /uL PT (10.1-12.7) SECONDS INR (0.9-1.3) Sodium (137-145) mmol/L Potassium (3.4-5.1) mmol/L Chloride (98-107) mmol/L Carbon Dioxide (22-32) mmol/L BUN (7-17) mg/dL Creatinine (0.52-1.04) mg/dL Estimated GFR (>60) mL/min BUN/Creatinine Ratio (6-22) Glucose (80-110) mg/dL Lactate 1.5 (0.7-2.1) mmol/L Calcium (8.4-10.2) mg/dL Magnesium (1.6-2.3) mg/dL Total Bilirubin (0.2-1.3) mg/dL AST (14-36) IU/L ALT (<35) IU/L Alkaline Phosphatase (38-126) U/L Total Creatine Kinase (30-135) U/L CK-MB (CK-2) CK-MB (CK-2) Rel Index Troponin I (0.01-0.034) ng/mL NT-Pro-B Natriuret Pep (<450) pg/mL Total Protein (6.3-8.2) g/dL Albumin (3.5-5.0) g/dL Globulin (1.7-4.1) g/dL Albumin/Globulin Ratio (1.0-2.8) Lipase (23-300) U/L Urine RBC None seen (0-5/HPF) Urine WBC 5-10/hpf H (0-5/HPF) Ur Squamous Epith Cells 10-30 /hpf H (0-5/HPF) Urine Bacteria Moderate (10-30) H (None) Ur Culture Indicated? Specimen cultured Urine Dip Bedside Urine Glucose Negative Bedside Urine Bilirubin - Negative Bedside Urine Ketone - Negative Urine Specific [place] 1.015 Bedside Urine Occult Blood - Negative Bedside Urine pH 6.0 Bedside Urine Protein - Negative Bedside Urine Urobilinogen - Negative Bedside Urine Nitrite - Negative Bedside Urine Leukocytes +/- 15 Esterase Point of care testing: Urine Dip Bedside Urine Glucose Negative Bedside Urine Bilirubin - Negative Bedside Urine Ketone - Negative Urine Specific [place] 1.015 Bedside Urine Occult Blood - Negative Bedside Urine pH 6.0 Bedside Urine Protein - Negative Bedside Urine Urobilinogen - Negative Bedside Urine Nitrite - Negative Bedside Urine Leukocytes +/- 15 Esterase MDM Narrative Medical decision making narrative: [81] year old patient presents with feeling shaky and unwell Multiple etiologies for patient's symptoms considered including, but not limited to: [Electrolyte abnormality versus infectious process versus UTI versus cardiac versus other] Prior Charts reviewed in our EMR Primary Historian: patient Labs reviewed and interpreted by myself: Urine consistent with UTI, otherwise no significant abnormalities Imaging reviewed: Chest x-ray demonstrates no acute cardiopulmonary disease Patient's symptoms improved over duration of stay with above-stated therapies. She is asymptomatic after her initial presentation, history and physical exam are reassuring, labs are unremarkable, she does have a UTI. Though her blood pressure was initially elevated and improved without intervention and she was completely asymptomatic. There is no significant abnormal finding, likely or least potentially related to urinary tract infection, no other obvious source, patient appropriate for discharge Findings and discharge diagnosis discussed with patient/family followed by verbalization of understanding Return precautions discussed with patient/family whom verbalize understanding of diagnosis and plan Discharge Plan Departure Patient Disposition: Home Clinical Impression: Acute UTI, HTN (hypertension) Instructions: Urinary Tract Infection, High Blood Pressure Activity Restrictions/Additional Instructions: *You have been diagnosed with [urinary tract infection and elevated blood pressure] *What to do: *Please continue to take your regular medications as directed. [x ] New medication prescriptions sent to your pharmacy: [[facility] ] [ ] New medication written as a paper prescription [ ] No new medications given *Please follow up with your primary care provider in 2-3 days, call for an appointment. Let them know you were seen in the Emergency Department and that we ask that you be seen in follow up. We will electronically transmit a record of today's note if your PCP is in our system *If you do not have a primary care provider please contact the [facility] Resource line at [phone]. They will ask some questions about your medical history and help get you set up with a doctor in the community. *Return to Emergency Department if you should have any new, worsening or concerning symptoms, such as [fever greater than 101 F, shaking chills, worsening pain, persistent vomiting or other bothersome symptoms] Prescriptions: New sulfamethoxazole-trimethoprim [Bactrim DS] 800-160 mg tablet 1 tab PO BID 5 Days Qty: 10 0RF No Action omeprazole 20 mg capsule,delayed release(DR/EC) See Rx Instructions .ROUTE .COMPLEX Qty: 180 3RF Dose Instruction: TAKE 1 CAPSULE(20 MG) BY MOUTH TWICE DAILY FOR GERD Rx Instructions: TAKE 1 CAPSULE(20 MG) BY MOUTH TWICE DAILY FOR GERD simvastatin 20 mg tablet See Rx Instructions .ROUTE .COMPLEX Qty: 90 3RF Dose Instruction: TAKE 1 TABLET BY MOUTH DAILY FOR LIPIDS/ CHOLESTEROL Rx Instructions: TAKE 1 TABLET BY MOUTH DAILY FOR LIPIDS/ CHOLESTEROL donepezil [Aricept] 5 mg tablet 5 mg PO DAILY Qty: 90 3RF Patient Comments: patient unsure Rx Instructions: Take 1 tablet by mouth daily for memory memantine 5 mg tablet 5 mg PO QAM Qty: 30 1RF Rx Instructions: Take 1 tab each morning daily TRIAL of MED. levothyroxine 75 mcg tablet See Rx Instructions .ROUTE .COMPLEX Qty: 90 3RF Dose Instruction: TAKE 1 TABLET BY MOUTH DAILY Rx Instructions: TAKE 1 TABLET BY MOUTH DAILY amlodipine 10 mg tablet See Rx Instructions .ROUTE .COMPLEX Qty: 90 3RF Dose Instruction: TAKE 1 TABLET BY MOUTH EVERY DAY Rx Instructions: TAKE 1 TABLET BY MOUTH EVERY DAY alprazolam 0.25 mg tablet 0.125 mg PO DAILY PRN (Reason: anxiety, panic attacks) Qty: 20 1RF cyanocobalamin (vitamin B-12) 1,000 mcg capsule 1,000 mcg PO DAILY Qty: 90 3RF Patient Comments: patient unsure Rx Instructions: Take 1 tablet by mouth daily ferrous sulfate [Feosol] 325 mg (65 mg iron) tablet 325 mg PO BID Qty: 180 3RF Patient Comments: patient unsure Rx Instructions: Take 1 tablet by mouth twice daily. Referrals: Nisreen Rose ARNP [Primary Care Provider] - Stand Alone Forms: Patient Portal/API
[2022-10-06 15:10] LABS: INR 1.1 (0.9-1.3); Prothrombin Time 12.2 SECONDS (10.1-12.7)
[2022-10-06 15:15] LABS: Add Manual Diff / Slide Review NO; Alanine Aminotransferase 18 IU/L (<35); Albumin 4.5 g/dL (3.5-5.0); Albumin Globulin Ratio 1.6 (1.0-2.8); Alkaline Phosphatase 106 U/L (38-126); Aspartate Aminotransferase 24 IU/L (14-36); BUN Creatinine Ratio 29.2 (6-22); Basophils Absolute Auto 100 /uL (0-100); Basophils Percent Auto 0.8 % (0-2); Bilirubin Total 0.2 mg/dL (0.2-1.3); Blood Urea Nitrogen 28 mg/dL (7-17); Calcium 8.7 mg/dL (8.4-10.2); Carbon Dioxide 22 mmol/L (22-32); Chloride 102 mmol/L (98-107); Creatine Kinase 85 U/L (30-135); Eosinophils Absolute Auto 100 /uL (0-450); Eosinophils Percent Auto 1.2 % (2-4); Estimated Glomerular Filt Rate 59 mL/min (>60); Globulin 2.8 g/dL (1.7-4.1); Glucose 126 mg/dL (80-110); HEMOLYSIS < 15 (0-50); Hematocrit 35.8 % (36-46); Hemoglobin 12.1 g/dL (12.0-16.0); Lactate (Lactic Acid) 1.5 mmol/L (0.7-2.1); Lipase 139 U/L (23-300); Lymphocytes Absolute Auto 900 /uL (1100-4500); Lymphocytes Percent Auto 12.3 % (25-40); Magnesium 2.1 mg/dL (1.6-2.3); Mean Corpuscular HGB Conc 33.8 % (30-36); Mean Corpuscular Hemoglobin 30.6 PG (26-34); Mean Corpuscular Volume 90.7 fL (80-100); Monocytes Absolute Auto 600 /uL (0-900); Neutrophils Absolute Auto 5400 /uL (1500-7000); Neutrophils Percent Auto 77.7 % (50-75); Platelet Count 369 X10^3/uL (150-400); Potassium 3.9 mmol/L (3.4-5.1); Red Blood Cell Count 3.95 X10^6/uL (4.0-5.2); Red Cell Distribution Width 13.2 % (11.6-14.8); Sodium 135 mmol/L (137-145); Total Protein 7.3 g/dL (6.3-8.2); White Blood Cell Count 6.9 X10^3/uL (4.5-11.0)
[2022-10-06 15:27] LABS: NT-proBNP (BNP-Adult 18+) 388 pg/mL (<450); Troponin I < 0.012 ng/mL (0.01-0.034)
[2022-10-06 15:55] LABS: Bacteria Urine Moderate (10-30); Culture Indicated Urine Specimen Cultured; RBC Urine None Seen (0-5/HPF); Squamous Epithelial Cell Urine 10-30 /HPF (0-5/HPF); WBC Urine 5-10/HPF (0-5/HPF)
[2022-10-06] MEDS: TRIMETH/SULFA 160/800 (DS) TABLET 1 TAB PO (16:26)
[2022-10-06] MEDS: AMLODIPINE 5 MG TABLET 10 MG PO (16:26)
== END 2022-10-06 16:33 | disposition home or self-care (01) ==
PROVIDERS: Emergency Provider Emergency Medicine; PCP Nurse Practitioner
DX: N39.0 Urinary tract infection, site not specified (principal); I10 Essential (primary) hypertension
CPT/HCPCS: 36415; 71045; 80053; 81003; 81015; 82550; 83605; 83690; 83735; 83880; 84484; 85025; 85610; 87040; 87086; 93005; 93010; 99283; 99284

== ENCOUNTER → 2022-10-15 12:53 | Outpatient (CLI) | payer OTHER, SELFPAY | PROVIDERS: PCP Nurse Practitioner; Referring Provider Nurse Practitioner; Visit Provider Nurse Practitioner | DX: E03.9 Hypothyroidism, unspecified (principal) | CPT/HCPCS: 36415; 84443 ==

== ENCOUNTER → 2023-01-25 10:32 | Outpatient (CLI) | payer OTHER, SELFPAY ==
[2023-01-25 13:33] LABS: Thyroid Stimulating Hormone 4.33 uIU/mL (0.47-4.68)
[2023-01-26 16:12] LABS: Appearance Urine UA CLEAR; Bilirubin Urine UA NEGATIVE (NEGATIVE); Color Urine UA YELLOW; Glucose Urine UA NEGATIVE (Negative); Ketones Urine UA NEGATIVE (NEGATIVE); Leukocyte Esterase Urine UA NEGATIVE (NEGATIVE); Nitrite Urine UA NEGATIVE (Negative); Occult Blood Urine UA NEGATIVE (Negative); Protein Urine UA NEGATIVE (Negative); Urobilinogen Urine UA 0.2 E.U./dL (0.2)
[2023-01-26 16:19] LABS: pH Urine UA 5.5 (4.5-8.0)
[2023-01-26 16:22] LABS: Bacteria Urine Occasional (0-1); Culture Indicated Urine Cult Not Indicated; RBC Urine 0-1/HPF (0-5/HPF); Squamous Epithelial Cell Urine 1-5 /HPF (0-5/HPF); WBC Urine 1-5/HPF (0-5/HPF)
== END ==
PROVIDERS: PCP Nurse Practitioner; Referring Provider Nurse Practitioner; Visit Provider Nurse Practitioner
DX: E03.9 Hypothyroidism, unspecified (principal); R39.9 Unspecified symptoms and signs involving the genitourinary system
CPT/HCPCS: 36415; 81001; 84443

== ENCOUNTER → 2023-04-09 09:16 | Outpatient (CLI) | payer OTHER, SELFPAY ==
[2023-04-09 11:39] LABS: Alanine Aminotransferase 21 IU/L (<35); Albumin 4.9 g/dL (3.5-5.0); Albumin Globulin Ratio 1.5 (1.0-2.8); Alkaline Phosphatase 112 U/L (38-126); Aspartate Aminotransferase 34 IU/L (14-36); BUN Creatinine Ratio 13.5 (6-22); Bilirubin Total 0.7 mg/dL (0.2-1.3); Blood Urea Nitrogen 13 mg/dL (7-17); Carbon Dioxide 22 mmol/L (22-32); Chloride 98 mmol/L (98-107); Cholesterol 232 mg/dL (140-199); Estimated Glomerular Filt Rate 58 mL/min (>60); Globulin 3.2 g/dL (1.7-4.1); Glucose 114 mg/dL (80-110); Potassium 3.9 mmol/L (3.4-5.1); Sodium 132 mmol/L (137-145); Total Protein 8.1 g/dL (6.3-8.2); Triglycerides 107 mg/dL (35-150)
[2023-04-09 11:48] LABS: HDL Cholesterol 123 mg/dL (40-60); HEMOLYSIS 34 (0-50); LDL Cholesterol Calculated 88 mg/dL (<100)
== END ==
PROVIDERS: PCP Nurse Practitioner; Referring Provider Family Medicine; Visit Provider Family Medicine
DX: R60.0 Localized edema (principal); E03.9 Hypothyroidism, unspecified; N18.30 Chronic kidney disease, stage 3 unspecified
CPT/HCPCS: 36415; 80053; 80061

== ENCOUNTER → 2023-04-17 14:36 | Outpatient (CLI) | payer OTHER, SELFPAY ==
[2023-04-17 17:32] LABS: Creatinine Urine Random 51.7 mg/dL
[2023-04-17 17:36] LABS: Microalbumi Creatinin Ratio Ur 23.2 ug/mg CR (<30); Microalbumin Urine Random 1.2 mg/dL (0-1.6)
== END ==
PROVIDERS: PCP Nurse Practitioner; Referring Provider Family Medicine; Visit Provider Family Medicine
DX: R60.0 Localized edema (principal); E03.9 Hypothyroidism, unspecified; N18.30 Chronic kidney disease, stage 3 unspecified
CPT/HCPCS: 82043; 82570

== ENCOUNTER 2023-04-20 06:35 | Emergency (ER) | payer OTHER, SELFPAY ==
[2023-04-20] VITALS (7 sets, daily range): BP systolic 168–182; BP diastolic 77–81; PULSE 79–98; RESP 19–24; TEMP 37.1; O2SAT 95–99; BMI 24.3
[2023-04-20 07:10] LABS: Add Manual Diff / Slide Review NO; Basophils Absolute Auto 0 /uL (0-100); Basophils Percent Auto 0.7 % (0-2); Eosinophils Absolute Auto 0 /uL (0-450); Eosinophils Percent Auto 0.7 % (2-4); Hemoglobin 13.6 g/dL (12.0-16.0); Lymphocytes Absolute Auto 600 /uL (1100-4500); Lymphocytes Percent Auto 10.6 % (25-40); Mean Corpuscular HGB Conc 33.3 % (30-36); Mean Corpuscular Hemoglobin 31.3 PG (26-34); Mean Corpuscular Volume 94.1 fL (80-100); Monocytes Absolute Auto 500 /uL (0-900); Monocytes Percent Auto 9.1 % (3-14); Neutrophils Absolute Auto 4600 /uL (1500-7000); Neutrophils Percent Auto 78.9 % (50-75); Platelet Count 364 X10^3/uL (150-400); Red Blood Cell Count 4.35 X10^6/uL (4.0-5.2); Red Cell Distribution Width 13.9 % (11.6-14.8); White Blood Cell Count 5.8 X10^3/uL (4.5-11.0)
[2023-04-20 07:23] LABS: Alanine Aminotransferase 21 IU/L (<35); Albumin 4.7 g/dL (3.5-5.0); Albumin Globulin Ratio 1.6 (1.0-2.8); Alkaline Phosphatase 106 U/L (38-126); Aspartate Aminotransferase 30 IU/L (14-36); Bilirubin Total 0.7 mg/dL (0.2-1.3); Blood Urea Nitrogen 12 mg/dL (7-17); Calcium 9.7 mg/dL (8.4-10.2); Carbon Dioxide 21 mmol/L (22-32); Chloride 101 mmol/L (98-107); Estimated Glomerular Filt Rate > 60 mL/min (>60); Globulin 2.9 g/dL (1.7-4.1); Glucose 109 mg/dL (80-110); HEMOLYSIS < 15 (0-50); Lipase 124 U/L (23-300); Potassium 3.7 mmol/L (3.4-5.1); Sodium 134 mmol/L (137-145); Total Protein 7.6 g/dL (6.3-8.2)
--- NOTE | 2023-04-20 07:31 | DI.RAD.S_ITS ---
PROCEDURE: XR CHEST 1V INDICATIONS: cough TECHNIQUE: One view of the chest was acquired. COMPARISON: [facility], CR, XR CHEST 1V, 10/06/2022, 14:32. FINDINGS: There is rotation. Surgical changes and devices: Sternotomy. Lungs and pleura: Hyperinflation consistent with COPD. Lungs are clear. No pleural effusions or pneumothorax. Mediastinum: Mediastinal contours appear normal. Heart size is normal. Bones and chest wall: No suspicious bony lesions. Overlying soft tissues appear unremarkable. IMPRESSION: No acute cardiopulmonary abnormality is seen. COPD. Dictated by: Ara Davila M.D. on 04/20/2023 at 8:35 Approved by: Ara Davila M.D. on 04/20/2023 at 8:36
--- NOTE | 2023-04-20 07:31 | ED.ABDPAIN ---
HPI - Abdominal Pain General Chief Complaint: Abdominal Pain Stated Complaint: stomach hurts alot Time Seen by Provider: 04/20/23 06:54 Source: patient and family Mode of arrival: Wheelchair History of Present Illness HPI narrative: Patient 82-year-old female history of dementia chronic kidney disease hyperlipidemia hypothyroidism presenting today with epigastric pain. According to daughter who has previously had UTIs, but this seems different. No decrease in appetite seems to be shaking a little bit more but is afebrile. Went to new PCP this week had medication changes. According to no amlodipine was stopped and hydrochlorothiazide was started due to ongoing pedal edema. She has had a slight cough but no significant shortness of breath. Son at bedside states that she takes omeprazole but has been taking about 6 ibuprofen daily in his having increased left upper quadrant pain. Was told not to take Tylenol due to bleeding. Related Data Previous Rx's Medication Instructions Recorded cyanocobalamin (vitamin B-12) 1,000 mcg PO DAILY #90 caps 08/15/20 1,000 mcg capsule ferrous sulfate 325 mg (65 mg 325 mg PO BID #180 tabs 08/15/20 iron) tablet (Feosol) levothyroxine 88 mcg tablet 88 mcg PO DAILY #90 tabs 10/17/22 (Synthroid) omeprazole 20 mg capsule,delayed See Rx Instructions .Route 12/04/22 release .COMPLEX #180 caps simvastatin 20 mg tablet See Rx Instructions .Route 12/13/22 .COMPLEX #90 tabs alprazolam 0.25 mg tablet 0.125 mg (1/2 x 0.25 mg) PO DAILY 03/13/23 PRN anxiety 90 days #45 tabs citalopram 10 mg tablet 10 mg PO QDAY #30 tabs 04/18/23 donepezil 10 mg tablet 10 mg PO DAILY #90 tabs 04/18/23 hydrochlorothiazide 12.5 mg tablet 12.5 mg PO QAM #90 tabs 04/18/23 hydrocodone 5 mg-acetaminophen 325 1 tab PO Q6H PRN pain #10 tabs 04/20/23 mg tablet omeprazole 40 mg capsule,delayed 40 mg PO BID #30 caps 04/20/23 release Allergies Allergy/AdvReac Type Severity Reaction Status Date / Time Penicillins [PENICILLINS] Allergy Unknown CHILDHOOD Verified 04/18/23 11:30 Patient History Medical History Toe pain, right Peripheral vascular disease Hypothyroidism (07/15/02) Skin cancer Easy bruisability GERD (gastroesophageal reflux disease) CKD (chronic kidney disease) stage 3, GFR 30-59 ml/min Breast cancer, right Mass of right breast Dizziness on standing Positive FIT (fecal immunochemical test) Frequent UTI Anemia Hyperlipemia Symptomatic anemia Vaginal irritation Vaginal candidiasis Surgical History Hx of endarterectomy (1989) History of esophagogastroduodenoscopy (EGD) (04/2020) Hx of hand surgery (09/2015) Status post colonoscopy Status post hysterectomy Status post arthroscopy Status post appendectomy History of tonsillectomy Family History Father Diabetes mellitus Hypertension Heart disease Mother Hypertension Alzheimer's disease Social History marital status: unknown household members: family Smoking Status: Former smoker alcohol intake: current substance use type: does not use Smoking Status: Former smoker alcohol intake frequency: 0-2 drinks per day Substance Use Type: does not use Exam Initial Vital Signs Initial Vital Signs: Vital Signs Temperature 98.8 F 04/20/23 06:47 Pulse Rate 98 H 04/20/23 06:47 Respiratory Rate 19 04/20/23 06:47 Blood Pressure 168/77 H 04/20/23 06:47 Pulse Oximetry 97 04/20/23 06:47 Oxygen Delivery Method Room Air 04/20/23 06:47 GENERAL: Alert pleasantly confused 82-year-old female HEENT: Head atraumatic,EOMI, pupils reactive, face symmetric, [moist] mucous membranes CARDIOVASCULAR: Regular rate and rhythm without murmurs, rubs or gallops. RESPIRATORY: Breath sounds equal bilaterally, no wheezes rales or rhonchi. ABDOMEN: Soft, epigastric pain no guarding rebound minimal right upper quadrant pain no significant distention EXTREMITIES: Normal range of motion, no clubbing or edema. Neurovascularly intact NEUROLOGICAL: Awake alert moving all extremities tremors at baseline SKIN: Warm, dry, no laceration, no petechiae, no rashes or lesions. Course Orders Ordered: Discontinued Medications Hydrocodone Bitart/Acetaminophen (Hydrocodone/Acet 5/325 Tablet) 1 tab PO NOW ONE Stop: 04/20/23 09:18 Last Admin: 04/20/23 09:28 Dose: 1 tab Documented By: SHONDA Sodium Chloride (Normal Saline 0.9%) 1,000 mls @ 1,000 mls/hr IV BOLUS ONE Stop: 04/20/23 08:30 Last Admin: 04/20/23 07:40 Dose: 1,000 mls/hr Documented By: SHONDA Ketorolac Tromethamine (Ketorolac 30 Mg/Ml Vial) 15 mg IV NOW ONE Stop: 04/20/23 07:32 Last Admin: 04/20/23 07:40 Dose: 15 mg Documented By: SHONDA Ondansetron HCl (Ondansetron 4 Mg Odt) 4 mg PO NOW PRN PRN Reason: Nausea And Vomiting Ondansetron HCl (Ondansetron 4 Mg/2 Ml Inj) 4 mg IV NOW PRN PRN Reason: Nausea And Vomiting Pantoprazole Sodium (Pantoprazole 40 Mg Vial) 40 mg IV NOW ONE Stop: 04/20/23 09:18 Last Admin: 04/20/23 09:29 Dose: 40 mg Documented By: SHONDA Vital Signs Vital signs: Vital Signs - 8 hr 04/20/23 09:26 04/20/23 09:30 04/20/23 09:34 Pulse Rate 79 88 82 Blood Pressure Pulse Oximetry 96 99 98 04/20/23 09:34 Pulse Rate Blood Pressure 182/81 H Pulse Oximetry MDM - Abdominal Pain Lab Data 04/20/23 07:00 04/20/23 07:00 Labs: Lab Results 04/20/23 Range/Units 07:00 WBC 5.8 (4.5-11.0) X10^3/uL RBC 4.35 (4.0-5.2) X10^6/uL Hgb 13.6 (12.0-16.0) g/dL Hct 41.0 (36-46) % MCV 94.1 (80-100) fL MCH 31.3 (26-34) PG MCHC 33.3 (30-36) % RDW 13.9 (11.6-14.8) % Plt Count 364 (150-400) X10^3/uL Neut % (Auto) 78.9 H (50-75) % Lymph % (Auto) 10.6 L (25-40) % Foard % (Auto) 9.1 (3-14) % Eos % (Auto) 0.7 L (2-4) % Baso % (Auto) 0.7 (0-2) % Neut # (Auto) 4600 (7503-5162) /uL Lymph # (Auto) 600 L (8204-1438) /uL Foard # (Auto) 500 (0-900) /uL Eos # (Auto) 0 (0-450) /uL Baso # (Auto) 0 (0-100) /uL Sodium 134 L (137-145) mmol/L Potassium 3.7 (3.4-5.1) mmol/L Chloride 101 (98-107) mmol/L Carbon Dioxide 21 L (22-32) mmol/L BUN 12 (7-17) mg/dL Creatinine 0.92 (0.52-1.04) mg/dL Estimated GFR > 60 (>60) mL/min BUN/Creatinine Ratio 13.0 (6-22) Glucose 109 (80-110) mg/dL Calcium 9.7 (8.4-10.2) mg/dL Total Bilirubin 0.7 (0.2-1.3) mg/dL AST 30 (14-36) IU/L ALT 21 (<35) IU/L Alkaline Phosphatase 106 (38-126) U/L Total Protein 7.6 (6.3-8.2) g/dL Albumin 4.7 (3.5-5.0) g/dL Globulin 2.9 (1.7-4.1) g/dL Albumin/Globulin Ratio 1.6 (1.0-2.8) Lipase 124 (23-300) U/L Imaging Data CT scan - abdomen/pelvis: Radiologist's Impression: PROCEDURE: CT ABDOMEN PELVIS W CON INDICATIONS: epigastric pain TECHNIQUE: After the administration of oral and IV contrast, axial sections were acquired from the lung bases to the pubic symphysis. Coronal and sagittal reformats were performed. For radiation dose reduction, the following was used: automated exposure control, adjustment of mA and/or kV according to patient size. COMPARISON: [facility], CR, XR CHEST 1V, 04/20/2023, 8:00. [facility], CT, ABDOMEN/PELVIS WITH CONTRAST, 04/25/2017, 19:04. FINDINGS: Image quality: Excellent. Lung bases: Unremarkable. Small hiatal hernia. Heart: There is a small pericardial effusion. Heart is mildly enlarged. ABDOMEN: Liver: No solid mass. Gallbladder: No radiopaque gallstones or wall thickening. Biliary ducts: No biliary dilation. Pancreas: No ductal dilation. Spleen: Size is within normal limits. A 2.3 cm densely calcified nodule in spleen is again noted, likely sequelae of old granulomatous infection or trauma. Adrenal Glands: Bilateral adrenal thickening. Kidneys and Ureters: No hydronephrosis. No solid mass. No complex renal cystic lesion which requires follow up. Stomach and Bowel: Stomach is contracted. There may be mild gastric antral thickening. Small bowel loops are normal in caliber. Normal colonic caliber, without significant wall thickening. Diverticulosis without acute diverticulitis. Peritoneum: No abnormal intraperitoneal fluid. No free air. Ventral Wall: No hernia. Abdominal Nodes: No retroperitoneal or mesenteric adenopathy by size criteria. Vessels: Aorta and inferior vena cava are normal in size. Moderate atherosclerosis. PELVIS: Pelvic Organs: Hysterectomy. A 2.8 cm cystic structure in the right pelvis is likely the right ovary. The left ovary is not visualized. No free fluid in pelvis. Bladder: Unremarkable. Pelvic Nodes: No enlarged lymph nodes. Miscellaneous: No inguinal hernias are seen. Bones: Sclerotic appearance of the left hemipelvis, unchanged. Moderate degenerative changes in lumbar spine. IMPRESSION: 1. Mild cardiomegaly and small pericardial effusion. 2. Small hiatal hernia. 3. Question mild gastric antral thickening. 4. Diverticulosis without acute diverticulitis. 5. Sclerotic appearance of the left hemipelvis appears unchanged. Differential diagnoses are metastatic disease versus Paget's disease. Recommend clinical correlation. Dictated by: Ara Davila M.D. on 04/20/2023 at 8:40 Approved by: Ara Davila M.D. on 04/20/2023 at 8:48 Chest x-ray: Radiologist's Impression: PROCEDURE: CT ABDOMEN PELVIS W CON INDICATIONS: epigastric pain TECHNIQUE: After the administration of oral and IV contrast, axial sections were acquired from the lung bases to the pubic symphysis. Coronal and sagittal reformats were performed. For radiation dose reduction, the following was used: automated exposure control, adjustment of mA and/or kV according to patient size. COMPARISON: [facility], CR, XR CHEST 1V, 04/20/2023, 8:00. [facility], CT, ABDOMEN/PELVIS WITH CONTRAST, 04/25/2017, 19:04. FINDINGS: Image quality: Excellent. Lung bases: Unremarkable. Small hiatal hernia. Heart: There is a small pericardial effusion. Heart is mildly enlarged. ABDOMEN: Liver: No solid mass. Gallbladder: No radiopaque gallstones or wall thickening. Biliary ducts: No biliary dilation. Pancreas: No ductal dilation. Spleen: Size is within normal limits. A 2.3 cm densely calcified nodule in spleen is again noted, likely sequelae of old granulomatous infection or trauma. Adrenal Glands: Bilateral adrenal thickening. Kidneys and Ureters: No hydronephrosis. No solid mass. No complex renal cystic lesion which requires follow up. Stomach and Bowel: Stomach is contracted. There may be mild gastric antral thickening. Small bowel loops are normal in caliber. Normal colonic caliber, without significant wall thickening. Diverticulosis without acute diverticulitis. Peritoneum: No abnormal intraperitoneal fluid. No free air. Ventral Wall: No hernia. Abdominal Nodes: No retroperitoneal or mesenteric adenopathy by size criteria. Vessels: Aorta and inferior vena cava are normal in size. Moderate atherosclerosis. PELVIS: Pelvic Organs: Hysterectomy. A 2.8 cm cystic structure in the right pelvis is likely the right ovary. The left ovary is not visualized. No free fluid in pelvis. Bladder: Unremarkable. Pelvic Nodes: No enlarged lymph nodes. Miscellaneous: No inguinal hernias are seen. Bones: Sclerotic appearance of the left hemipelvis, unchanged. Moderate degenerative changes in lumbar spine. IMPRESSION: 1. Mild cardiomegaly and small pericardial effusion. 2. Small hiatal hernia. 3. Question mild gastric antral thickening. 4. Diverticulosis without acute diverticulitis. 5. Sclerotic appearance of the left hemipelvis appears unchanged. Differential diagnoses are metastatic disease versus Paget's disease. Recommend clinical correlation. Dictated by: Ara Davila M.D. on 04/20/2023 at 8:40 Approved by: Ara Davila M.D. on 04/20/2023 at 8:48 MDM Narrative Medical decision making narrative: Patient 82-year-old female presents today abdominal. She is tender on exam epigastric region. Blood work reviewed no leukocytosis or anemia no LIOR electrolyte abnormality no significantly elevated BUN creatinine ratio. Low suspicion for any sort of GI bleeding. CT shows thickening of gastric outlet. I suspect that she has gastric ulcer without evidence of bleeding. She is taking omeprazole 20 mg. She is not nauseous. CT also shows small pericardial effusion which I do not think is causing any of her pain. Also small hiatal hernia may or may not be pain. Discussed with family next steps and treatment. We discussed Tylenol instead of ibuprofen for pain. Discharge Plan Departure Patient Disposition: Home Clinical Impression: Gastric ulcer Instructions: DI for Gastric Ulcer Activity Restrictions/Additional Instructions: *You have been diagnosed with gastric ulcer *What to do: At this time I think she has a gastric ulcer I would avoid NSAIDs that include ibuprofen, Aleve, naproxen, Advil etc. Tylenol is okay. *Continue to take medications as directed Omeprazole 40 mg twice a day for 2 weeks [place] 1 tablet every 6 hours if needed for severe pain I would cautiously, this can cause confusion and nausea Tylenol 650 mg every 6 hours if needed for [id number] pain *Follow up with your primary care provider in 2-3 days or call [phone] *Return to ER if you should have increasing pain coffee-ground vomit, black stools weakness confusion or any new, worsening or concerning symptoms CONTROLLED SUBSTANCE DISCHARGE (Narcotoic/benzodiazepine/Flexeril/Phenergan) 1. You have been prescribed narcotic medications, it does have acetaminophen/Tylenol/paracetamol in it, DO NOT TAKE MORE THAN 4,00mg in 24 hours of Tylenol. TRAMADOL DOES NOT CONTAIN TYLENOL 2. Please understand that we cannot provide further refills of narcotics, benzodiazepines or controlled substances through the ED and her pain management will need to be through your provider. 3. While on these medications you cannot drive or operate heavy machinery. 4. You cannot sign legal documents or perform any duties such as this. 5. As long as you're taking opiate pain medications he should also be taking a stool softener such as Colace, Dulcolax, MiraLAX or prune juice, to help avoid constipation. Prescriptions: New omeprazole 40 mg capsule,delayed release(DR/EC) 40 mg PO BID Qty: 30 0RF hydrocodone-acetaminophen 5-325 mg tablet 1 tab PO Q6H PRN (Reason: pain) Qty: 10 0RF No Action citalopram 10 mg tablet 10 mg PO QDAY Qty: 30 0RF levothyroxine [Synthroid] 88 mcg tablet 88 mcg PO DAILY Qty: 90 3RF Rx Instructions: Take 1 tab on an empty stomach daily, name brand only omeprazole 20 mg capsule,delayed release(DR/EC) See Rx Instructions .ROUTE .COMPLEX Qty: 180 3RF Dose Instruction: TAKE 1 CAPSULE(20 MG) BY MOUTH TWICE DAILY FOR GERD Rx Instructions: TAKE 1 CAPSULE(20 MG) BY MOUTH TWICE DAILY FOR GERD simvastatin 20 mg tablet See Rx Instructions .ROUTE .COMPLEX Qty: 90 3RF Dose Instruction: TAKE 1 TABLET BY MOUTH DAILY FOR LIPIDS/ CHOLESTEROL Rx Instructions: TAKE 1 TABLET BY MOUTH DAILY FOR LIPIDS/ CHOLESTEROL alprazolam 0.25 mg tablet 0.125 mg PO DAILY PRN (Reason: anxiety) 90 Days Qty: 45 0RF donepezil 10 mg tablet 10 mg PO DAILY Qty: 90 0RF hydrochlorothiazide 12.5 mg tablet 12.5 mg PO QAM Qty: 90 0RF cyanocobalamin (vitamin B-12) 1,000 mcg capsule 1,000 mcg PO DAILY Qty: 90 3RF Patient Comments: patient unsure Rx Instructions: Take 1 tablet by mouth daily ferrous sulfate [Feosol] 325 mg (65 mg iron) tablet 325 mg PO BID Qty: 180 3RF Patient Comments: patient unsure Rx Instructions: Take 1 tablet by mouth twice daily. Referrals: Mike Javed MD [Primary Care Provider] - Stand Alone Forms: Patient Portal/API
[2023-04-20] MEDS: KETOROLAC 30 MG/ML VIAL 15 MG IV (07:40)
[2023-04-20] MEDS: SODIUM CHLORIDE 0.9% 1,000 ML 1000 ML IV (07:40)
--- NOTE | 2023-04-20 08:14 | PC.NURSE ---
[employer] note: assisted pt. to bathroom , pt. was shaking while walking but ambulated quite well. pt. seemed anxious, placed urine hats in toilet for pt. clean catch and educated pt. on urine sample. pt. immediately stood up and stated i want to go home. assisted ambulating pt. back to pt. room. notified provider of pt. wishes.
[2023-04-20] MEDS: HYDROCODONE/ACET 5/325 TABLET 1 TAB PO (09:28)
[2023-04-20] MEDS: PANTOPRAZOLE 40 MG VIAL IV (09:29)
== END 2023-04-20 09:40 | disposition home or self-care (01) ==
PROVIDERS: Emergency Provider Emergency Medicine; PCP Family Medicine
DX: K25.9 Gastric ulcer, unspecified as acute or chronic, without hemorrhage or perforation (principal)
CPT/HCPCS: 36415; 71045; 74177; 80053; 83690; 85025; 96374; 96375; 99284; C9113; J1885; Q9967

== ENCOUNTER 2023-04-22 09:39 | Emergency (ER) | payer OTHER, SELFPAY ==
[2023-04-22] VITALS (11 sets, daily range): BP systolic 146–176; BP diastolic 67–104; PULSE 64–89; RESP 14–27; TEMP 36.1; O2SAT 95–98; BMI 24.3
--- NOTE | 2023-04-22 09:53 | DI.CT.S_ITS ---
PROCEDURE: CT HEAD/BRAIN WO CON INDICATIONS: cortes, syncope, for months TECHNIQUE: Noncontrast 4.5 mm thick angled axial sections acquired from the foramen magnum to the vertex, with coronal and sagittal reformats. For radiation dose reduction, the following was used: automated exposure control, adjustment of mA and/or kV according to patient size. COMPARISON: None. FINDINGS: Image quality: Excellent. CSF spaces: Basal cisterns are patent. No extra-axial fluid collections. The ventricles are symmetric in size and shape. Brain: No intracranial bleeds or masses. There is cerebral volume loss for age, with resultant ventricular and sulcal prominence. There are moderate periventricular and deep white matter chronic small vessel ischemic changes. There is intracranial internal carotid artery atherosclerosis. Skull and face: Calvarium and visualized facial bones appear intact, without suspicious lesions. Sinuses: Visualized sinuses and mastoids are clear. IMPRESSION: 1. No acute intracranial pathology. 2. Age-related volume loss and moderate, age-appropriate small-vessel ischemic change. Dictated by: Wes Ingram M.D. on 04/22/2023 at 10:17 Approved by: Wes Ingram M.D. on 04/22/2023 at 10:19
--- NOTE | 2023-04-22 09:53 | DI.RAD.S_ITS ---
PROCEDURE: XR CHEST 1V INDICATIONS: chest pain TECHNIQUE: One view of the chest was acquired. COMPARISON: [facility], CR, XR CHEST 1V, 04/20/2023, 8:00. FINDINGS: Surgical changes and devices: Median sternotomy. Lungs and pleura: Lungs are clear. No pleural effusions or pneumothorax. Mediastinum: Mediastinal contours appear normal. Heart size is normal. Bones and chest wall: No suspicious bony lesions. Overlying soft tissues appear unremarkable. IMPRESSION: No acute process. Dictated by: Blaire Cloud M.D. on 04/22/2023 at 10:12 Approved by: Blaire Cloud M.D. on 04/22/2023 at 10:12
--- NOTE | 2023-04-22 09:53 | DI.CT.S_ITS ---
PROCEDURE: CT ANGIO HEAD AND NECK INDICATIONS: cortes, syncope, for months TECHNIQUE: After the administration of intravenous contrast, 1 mm thick sections acquired from the aortic arch through the [place]. 3-dimensional wobhnom-gcwnstxqj-zuhbumvshk (MIP) and/or volume rendering reformats were acquired of the central intracranial vasculature and neck separately. For radiation dose reduction, the following was used: automated exposure control, adjustment of mA and/or kV according to patient size. COMPARISON: None. FINDINGS: Image quality: Diagnostic. BRAIN: CSF spaces: Ventricles are normal in size and shape. Basal cisterns are patent. No extra-axial fluid collections. Brain: No significant abnormality of the brain can be seen. Skull and face: Calvarium and facial bones appear intact, without suspicious lesions. Orbits appear normal. Sinuses: Sinuses and mastoids are clear. HEAD CT ANGIOGRAPHY: Anterior circulation: Intracranial internal carotid arteries are normal in size and flow. The flow within the paired anterior cerebral arteries is normal and symmetric. The flow within the middle cerebral arteries is normal and symmetric. The anterior communicating artery is seen. No aneurysms are seen. Posterior circulation: Visualized portions of the vertebral arteries demonstrate normal caliber, and join to form a normal appearing basilar artery. Flow within the posterior cerebral arteries is normal and symmetric. No aneurysms are seen. NECK CT ANGIOGRAPHY: Carotid system: The great vessels demonstrate a conventional anatomy as they arise from the aortic arch. The origins of the common carotid arteries appear patent. The common carotid arteries demonstrate normal caliber and courses. Moderate calcific plaque causes is roughly 30% origin stenosis of the right internal carotid artery which is otherwise patent within the neck. Mild calcific plaque causes roughly 10% origin stenosis of the left internal carotid artery which is otherwise patent within the neck. Posterior circulation: The origins of the vertebral arteries both appear widely patent. The more superior extracranial portions of both vertebral arteries also demonstrate normal courses and calibers. They join to form a normal appearing basilar artery. Soft tissues: Visualized neck soft tissues demonstrate no suspicious abnormalities. Bones: No suspicious bony lesions. Visualized cervical spine appears normally aligned. IMPRESSION: No acute process involving the arterial tree of the head and neck. Any quantitative measurements of stenosis were performed using NASCET criteria. Dictated by: Blaire Cloud M.D. on 04/22/2023 at 10:57 Approved by: Blaire Cloud M.D. on 04/22/2023 at 11:02
--- NOTE | 2023-04-22 10:13 | ED.HA ---
HPI - Headache General Chief Complaint: Headache Stated Complaint: headache that wont go away has fainted Time Seen by Provider: 04/22/23 09:53 Source: patient, family, RN notes reviewed and old records reviewed Mode of arrival: Ambulatory History of Present Illness HPI Narrative: 82-year-old female history of dementia, chronic kidney disease, dyslipidemia, hypothyroidism and hard of hearing. Patient is not on any thinners. Presents today with recurrent episodes of headaches which he describes as posterior intermittent has been more increasing frequency. Daughter states and patient states will come on quite suddenly be very painful. They were giving ibuprofen but stopped that recently secondary to concern for ulcer. They have been trying Tylenol. Has becoming more frequent this week. She states that patient had episode where she seemed to pass out today. She has not been having that happen typically. She states she said that she felt weird was describing headache and then sort of sat back in the chair was out for about 20 seconds and then regained consciousness 1 or 2 minutes and then returned to normal. She has been having these episodes for some time they are usually very rapid and then headache lasts for several hours and then resolves. No fevers, no other new alterations in mental status although family states she does have dementia and has becoming difficult to tell baseline. But she is conversant, alert and able to answer questions today. No chest pain, no shortness of breath patient denies any nausea or vomiting with these episodes. She denies any diarrhea or constipation, no black or bloody stools. She is not had any loss of bowel or bladder control with these episodes. No generalized shaking has been appreciated. Patient denies any numbness, tingling or weakness otherwise. She states she felt really lightheaded before the episode happened. She is allergic to penicillin. Patient has had prior mastectomy for breast cancer in the last couple years. No tobacco, alcohol or illicit. Daughter state that she was up about 7 times last night she states she seems to get very anxious and that the pain sort of seems to exacerbate the anxiety. Related Data Previous Rx's Medication Instructions Recorded cyanocobalamin (vitamin B-12) 1,000 mcg PO DAILY #90 caps 08/15/20 1,000 mcg capsule ferrous sulfate 325 mg (65 mg 325 mg PO BID #180 tabs 08/15/20 iron) tablet (Feosol) levothyroxine 88 mcg tablet 88 mcg PO DAILY #90 tabs 10/17/22 (Synthroid) omeprazole 20 mg capsule,delayed See Rx Instructions .Route 12/04/22 release .COMPLEX #180 caps simvastatin 20 mg tablet See Rx Instructions .Route 12/13/22 .COMPLEX #90 tabs alprazolam 0.25 mg tablet 0.125 mg (1/2 x 0.25 mg) PO DAILY 03/13/23 PRN anxiety 90 days #45 tabs citalopram 10 mg tablet 10 mg PO QDAY #30 tabs 04/18/23 donepezil 10 mg tablet 10 mg PO DAILY #90 tabs 04/18/23 hydrochlorothiazide 12.5 mg tablet 12.5 mg PO QAM #90 tabs 04/18/23 hydrocodone 5 mg-acetaminophen 325 1 tab PO Q6H PRN pain #10 tabs 04/20/23 mg tablet omeprazole 40 mg capsule,delayed 40 mg PO BID #30 caps 04/20/23 release Allergies Allergy/AdvReac Type Severity Reaction Status Date / Time Penicillins [PENICILLINS] Allergy Unknown CHILDHOOD Verified 04/22/23 09:52 Review of Systems Review of Systems ROS Unobtainable: All systems reviewed & are unremarkable except as noted in HPI and below Patient History Medical History Toe pain, right Peripheral vascular disease Hypothyroidism (07/15/02) Skin cancer Easy bruisability GERD (gastroesophageal reflux disease) CKD (chronic kidney disease) stage 3, GFR 30-59 ml/min Breast cancer, right Mass of right breast Dizziness on standing Positive FIT (fecal immunochemical test) Frequent UTI Anemia Hyperlipemia Symptomatic anemia Vaginal irritation Vaginal candidiasis Surgical History Hx of endarterectomy (1989) History of esophagogastroduodenoscopy (EGD) (04/2020) Hx of hand surgery (09/2015) Status post colonoscopy Status post hysterectomy Status post arthroscopy Status post appendectomy History of tonsillectomy Family History Father Diabetes mellitus Hypertension Heart disease Mother Hypertension Alzheimer's disease Social History marital status: unknown household members: family Smoking Status: Former smoker alcohol intake: current substance use type: does not use Smoking Status: Former smoker alcohol intake frequency: 0-2 drinks per day Substance Use Type: does not use Exam Narrative Exam Narrative: GEN: well nourished, well appearing female, alert and oriented, patient is hard of hearing but otherwise able to answer vast majority of questions without issue, patient appears to be in mild distress. HEENT: Atraumatic, pupils are equal round reactive to light, extraocular movements are intact, nares are clear, TMs are clear with no fluid, there is no conjunctival pallor. Throat is clear without any exudates, erythema, tonsillar enlargement or uvular deviation, no facial droop. HEART: Regular rate and rhythm without murmur, clicks, rubs. No carotid bruits, pulses are equal in upper and lower extremities LUNGS:Lungs clear to auscultation, no wheezes, rales, crackles, chest moves symmetrically ABD:bowel sounds normal, soft, non-tender, no guarding, rebound, rigidity, no masses noted, no hepatosplenomegaly :No CVA tenderness MSCL: Non-tender, no muscle atrophy, muscles strength 5/5 upper and lower extremities, full range of motion NEURO:CN 2-12 intact, sensation normal, reflexes 2/4 upper and lower extremities. finger nose finger test normal, heel blanco test normal, no dysarthria, no aphasia. SKIN: No rash, erythema or other skin changes Initial Vital Signs Initial Vital Signs: Vital Signs Pulse Rate 89 04/22/23 09:46 Pulse Oximetry 98 04/22/23 09:46 Course Orders Ordered: Discontinued Medications Acetaminophen (Acetaminophen 325 Mg Tablet) 975 mg PO NOW ONE Stop: 04/22/23 10:48 Last Admin: 04/22/23 10:52 Dose: Not Given Documented By: SIERRA Acetaminophen (Ofirmev) 1,000 mg in 100 mls @ 400 mls/hr IV NOW ONE Stop: 04/22/23 10:44 Last Admin: 04/22/23 10:56 Dose: Not Given Documented By: SIERRA Sodium Chloride (Normal Saline 0.9%) 1,000 mls @ 1,000 mls/hr IV BOLUS ONE Stop: 04/22/23 11:30 Last Infusion: 04/22/23 12:56 Dose: Infused Documented By: Admin: 04/22/23 10:52 Dose: 1,000 mls/hr Documented By: SIERRA Potassium Chloride (Potassium Chloride 20 Meq Tab) 40 meq PO NOW ONE Stop: 04/22/23 11:21 Last Admin: 04/22/23 11:46 Dose: 40 meq Documented By: KRISTA Vital Signs Vital signs: Vital Signs - 8 hr 04/22/23 09:46 04/22/23 09:49 04/22/23 09:49 Temperature 97 F L Pulse Rate 89 86 78 Respiratory Rate 16 20 Blood Pressure 146/67 H Pulse Oximetry 98 97 97 Oxygen Delivery Method Room Air 04/22/23 09:49 04/22/23 10:14 04/22/23 10:15 Temperature Pulse Rate 74 Respiratory Rate 23 Blood Pressure 146/67 H 173/74 H Pulse Oximetry 95 Oxygen Delivery Method 04/22/23 10:15 04/22/23 10:30 04/22/23 10:31 Temperature Pulse Rate 73 66 71 Respiratory Rate 27 H Blood Pressure Pulse Oximetry 98 95 95 Oxygen Delivery Method 04/22/23 10:31 04/22/23 10:43 04/22/23 10:43 Temperature Pulse Rate 78 Respiratory Rate 27 H Blood Pressure 153/72 H 154/104 H Pulse Oximetry 96 Oxygen Delivery Method 04/22/23 11:00 04/22/23 11:00 04/22/23 11:30 Temperature Pulse Rate 67 66 Respiratory Rate 26 H 24 Blood Pressure 154/70 H Pulse Oximetry 96 98 Oxygen Delivery Method 04/22/23 11:31 04/22/23 11:31 Temperature Pulse Rate 71 Respiratory Rate 20 Blood Pressure 164/74 H Pulse Oximetry 98 Oxygen Delivery Method MDM - Headache Lab Data 04/22/23 09:50 04/22/23 09:50 Labs: Lab Results 04/22/23 04/22/23 Range/Units 09:50 11:42 WBC 8.4 (4.5-11.0) X10^3/uL RBC 4.34 (4.0-5.2) X10^6/uL Hgb 13.9 (12.0-16.0) g/dL Hct 41.0 (36-46) % MCV 94.6 (80-100) fL MCH 32.1 (26-34) PG MCHC 34.0 (30-36) % RDW 14.1 (11.6-14.8) % Plt Count 366 (150-400) X10^3/uL Neut % (Auto) 86.1 H (50-75) % Lymph % (Auto) 5.6 L (25-40) % [place] % (Auto) 7.5 (3-14) % Eos % (Auto) 0.2 L (2-4) % Baso % (Auto) 0.6 (0-2) % Neut # (Auto) 7300 H (5153-3535) /uL Lymph # (Auto) 500 L (9394-4265) /uL [place] # (Auto) 600 (0-900) /uL Eos # (Auto) 0 (0-450) /uL Baso # (Auto) 0 (0-100) /uL PT 12.4 (9.4-12.5) SECONDS INR 1.1 (0.9-1.3) APTT 30 (25.1-36.5) SECONDS Sodium 133 L (137-145) mmol/L Potassium 3.2 L (3.4-5.1) mmol/L Chloride 96 L (98-107) mmol/L Carbon Dioxide 25 (22-32) mmol/L BUN 15 (7-17) mg/dL Creatinine 1.08 H (0.52-1.04) mg/dL Estimated GFR 51 L (>60) mL/min BUN/Creatinine Ratio 13.9 (6-22) Glucose 116 H (80-110) mg/dL Calcium 9.5 (8.4-10.2) mg/dL Magnesium 1.8 (1.6-2.3) mg/dL Total Bilirubin 0.6 (0.2-1.3) mg/dL AST 36 (14-36) IU/L ALT 22 (<35) IU/L Alkaline Phosphatase 86 (38-126) U/L Total Creatine Kinase 216 H (30-135) U/L Troponin I 0.035 H 0.027 (0.01-0.034) ng/mL Total Protein 7.6 (6.3-8.2) g/dL Albumin 4.7 (3.5-5.0) g/dL Globulin 2.9 (1.7-4.1) g/dL Albumin/Globulin Ratio 1.6 (1.0-2.8) Lipase 72 (23-300) U/L Urine Dip Bedside Urine Glucose Negative Bedside Urine Bilirubin - Negative Bedside Urine Ketone - Negative Urine Specific [place] 1.010 Bedside Urine Occult Blood - Negative Bedside Urine pH 6.0 Bedside Urine Protein - Negative Bedside Urine Urobilinogen - Negative Bedside Urine Nitrite - Negative Bedside Urine Leukocytes - Negative Esterase Imaging Data CT scan - head: Radiologist's Impression: [address] [address] [address] Scan Report Signed Patient: Marcia Miller MR#: [id number] : 1940 Acct:[id number] Age/Sex: 82 / F Date of Service: 04/22/23 Loc: ED Accession Number: [id number] Procedure: CT head/brain wo con Ordering Provider: Keren Licona D.O. PROCEDURE: CT HEAD/BRAIN WO CON INDICATIONS: cortes, syncope, for months TECHNIQUE: Noncontrast 4.5 mm thick angled axial sections acquired from the foramen magnum to the vertex, with coronal and sagittal reformats. For radiation dose reduction, the following was used: automated exposure control, adjustment of mA and/or kV according to patient size. COMPARISON: None. FINDINGS: Image quality: Excellent. CSF spaces: Basal cisterns are patent. No extra-axial fluid collections. The ventricles are symmetric in size and shape. Brain: No intracranial bleeds or masses. There is cerebral volume loss for age, with resultant ventricular and sulcal prominence. There are moderate periventricular and deep white matter chronic small vessel ischemic changes. There is intracranial internal carotid artery atherosclerosis. Skull and face: Calvarium and visualized facial bones appear intact, without suspicious lesions. Sinuses: Visualized sinuses and mastoids are clear. IMPRESSION: 1. No acute intracranial pathology. 2. Age-related volume loss and moderate, age-appropriate small-vessel ischemic change. Dictated by: Wes Ingram M.D. on 04/22/2023 at 10:17 Approved by: Wes Ingram M.D. on 04/22/2023 at 10:19 CTA - brain/neck: Radiologist's Impression: Close Head/Neck CTA (Signed) Blaire Cloud - 04/22/[address] (Signed) Wes Ingram - 04/22/23 Chest X-Ray (Signed) Blaire Cloud - 04/22/23 Chest X-Ray (Signed) Ara Davila - 04/20/23 Abdomen/Pelvis CT (Signed) Ara Davila - 04/20/23 Chest X-Ray (Signed) WestonRika - 10/06/22 Chest X-Ray (Signed) Herve Oscar - 06/13/22 Telemetry Strips 09/07/21 Chest X-Ray (Signed) Mike Newby - 11/22/20 Breast Biopsy Ultrasound (Signed) Amos Weberon - 07/21/20 Mammogram Diagnostic (Signed) Jake Weber - 07/21/20 Mammogram Diagnostic (Signed) Jonathan Kimballwn - 07/12/20 Breast Ultrasound (Addendum) Rehana,Paxton - 07/12/[address] (Signed) CloudRustam cabreraluis - 03/26/20 Chest X-Ray (Signed) Wyatt Charles - 03/24/20 Tibia/Fibula X-Ray (Signed) Lyssa Ochoa - 02/22/18 Chest X-Ray (Signed) Brien Figueroa - 12/02/17 Telemetry Strips 04/26/17 [place] [address] CT Scan Report Signed Patient: Marcia Miller MR#: [id number] : 1940 Acct:[id number] Age/Sex: 82 / F Date of Service: 04/22/23 Loc: ED Accession Number: [id number] Procedure: CT angio head and neck Ordering Provider: Keren Licona D.O. PROCEDURE: CT ANGIO HEAD AND NECK INDICATIONS: cortes, syncope, for months TECHNIQUE: After the administration of intravenous contrast, 1 mm thick sections acquired from the aortic arch through the [place]. 3-dimensional mwkhafm-pdmvmfcap-keiormwtmh (MIP) and/or volume rendering reformats were acquired of the central intracranial vasculature and neck separately. For radiation dose reduction, the following was used: automated exposure control, adjustment of mA and/or kV according to patient size. COMPARISON: None. FINDINGS: Image quality: Diagnostic. BRAIN: CSF spaces: Ventricles are normal in size and shape. Basal cisterns are patent. No extra-axial fluid collections. Brain: No significant abnormality of the brain can be seen. Skull and face: Calvarium and facial bones appear intact, without suspicious lesions. Orbits appear normal. Sinuses: Sinuses and mastoids are clear. HEAD CT ANGIOGRAPHY: Anterior circulation: Intracranial internal carotid arteries are normal in size and flow. The flow within the paired anterior cerebral arteries is normal and symmetric. The flow within the middle cerebral arteries is normal and symmetric. The anterior communicating artery is seen. No aneurysms are seen. Posterior circulation: Visualized portions of the vertebral arteries demonstrate normal caliber, and join to form a normal appearing basilar artery. Flow within the posterior cerebral arteries is normal and symmetric. No aneurysms are seen. NECK CT ANGIOGRAPHY: Carotid system: The great vessels demonstrate a conventional anatomy as they arise from the aortic arch. The origins of the common carotid arteries appear patent. The common carotid arteries demonstrate normal caliber and courses. Moderate calcific plaque causes is roughly 30% origin stenosis of the right internal carotid artery which is otherwise patent within the neck. Mild calcific plaque causes roughly 10% origin stenosis of the left internal carotid artery which is otherwise patent within the neck. Posterior circulation: The origins of the vertebral arteries both appear widely patent. The more superior extracranial portions of both vertebral arteries also demonstrate normal courses and calibers. They join to form a normal appearing basilar artery. Soft tissues: Visualized neck soft tissues demonstrate no suspicious abnormalities. Bones: No suspicious bony lesions. Visualized cervical spine appears normally aligned. IMPRESSION: No acute process involving the arterial tree of the head and neck. Any quantitative measurements of stenosis were performed using NASCET criteria. Dictated by: Blaire Cloud M.D. on 04/22/2023 at 10:57 Approved by: Blaire Cloud M.D. on 04/22/2023 at 11:02 ECG Data Attestation: I personally reviewed and interpreted this ECG as follows: Interpretation: Sinus rhythm rate of 68 [place] 140 QRS is [address] No acute [address] elevation depression noted. MDM Narrative Medical decision making narrative: 82-year-old female with frequent headaches increasing intensity for the past several months. Patient had episode where she may have passed out most recently. Has not had any infectious changes denies any other acute neurologic changes. He is not having frequent episodes of passing out. Based on complaint of headache with episode of possible passing out with the timeline of several months vascular disorder seems less likely but certainly possible so head CT as well as CT angio non-con were obtained. Patient's last episode was in the last 6 hours. She did develop a headache while I was in the room again and was given a dose of Tylenol. Patient was seen here on 04/20/2023 with suspected gastric ulcer. Symptoms were not reported at that time. Head CT shows no acute change. CT angio shows moderate calcific plaque roughly 30% origin stenosis right ICA otherwise patent with in the neck and mild plaque causing 10% origin stenosis left ICA otherwise patent with no other acute changes noted. No aneurysms, stenosis or occlusion noted. Labs normal white count hemoglobin and platelets, slightly leftward shift. Coags are negative Sodium is 133 potassium 3.2 chloride 96 creatinine of 1.08, glucose of 116, LFTs negative total CK is 216 with a troponin was indeterminate. Patient has not had any chest pain shortness of breath or other changes was repeated and is negative. Patient did have headache in the department was going to receive Tylenol but she deferred. Patient has been slightly hypertensive no other events here in the department. Discussed with patient family with her chronicity of headaches I do not think she requires admission or lumbar puncture or further workup at this time but I would recommend her to follow up with primary care and possibly Neurology. Daughter knows they followed up with primary care and actually have referral to Neurology in place. Discharge Plan Departure Patient Disposition: Home Clinical Impression: Syncope, Headache Instructions: DI for Headache Activity Restrictions/Additional Instructions: Please follow-up with your physician for recheck. Your workup today did not show any obvious changes to her brain such as bleed, aneurysm or vascular changes there were no masses or other changes appreciated. Your labs showed a slightly low sodium and potassium and you appear a little dehydrated today. You continue with Tylenol up to a 1000 mg every 6 hours as needed. Maximum amount of Tylenol or acetaminophen in 24 hours is 4000 mg. If you are having persistent headaches your physician may prescribe alternative medications it may be useful to follow up with a neurologist. Contact information is included below to set up a follow up appointment. Please return for new or worsening symptoms increasingly severe headaches, passing out, new chest pain, shortness of breath, persistent vomiting, new weakness numbness, tingling, facial droop, altered mental status or other new or concerning changes. Prescriptions: No Action citalopram 10 mg tablet 10 mg PO QDAY Qty: 30 0RF levothyroxine [Synthroid] 88 mcg tablet 88 mcg PO DAILY Qty: 90 3RF Rx Instructions: Take 1 tab on an empty stomach daily, name brand only omeprazole 20 mg capsule,delayed release(DR/EC) See Rx Instructions .ROUTE .COMPLEX Qty: 180 3RF Dose Instruction: TAKE 1 CAPSULE(20 MG) BY MOUTH TWICE DAILY FOR GERD Rx Instructions: TAKE 1 CAPSULE(20 MG) BY MOUTH TWICE DAILY FOR GERD simvastatin 20 mg tablet See Rx Instructions .ROUTE .COMPLEX Qty: 90 3RF Dose Instruction: TAKE 1 TABLET BY MOUTH DAILY FOR LIPIDS/ CHOLESTEROL Rx Instructions: TAKE 1 TABLET BY MOUTH DAILY FOR LIPIDS/ CHOLESTEROL alprazolam 0.25 mg tablet 0.125 mg PO DAILY PRN (Reason: anxiety) 90 Days Qty: 45 0RF donepezil 10 mg tablet 10 mg PO DAILY Qty: 90 0RF hydrochlorothiazide 12.5 mg tablet 12.5 mg PO QAM Qty: 90 0RF cyanocobalamin (vitamin B-12) 1,000 mcg capsule 1,000 mcg PO DAILY Qty: 90 3RF Patient Comments: patient unsure Rx Instructions: Take 1 tablet by mouth daily ferrous sulfate [Feosol] 325 mg (65 mg iron) tablet 325 mg PO BID Qty: 180 3RF Patient Comments: patient unsure Rx Instructions: Take 1 tablet by mouth twice daily. omeprazole 40 mg capsule,delayed release(DR/EC) 40 mg PO BID Qty: 30 0RF hydrocodone-acetaminophen 5-325 mg tablet 1 tab PO Q6H PRN (Reason: pain) Qty: 10 0RF Referrals: Mike Javed MD [Primary Care Provider] - Praveena Cain MD [Non-Staff] - Stand Alone Forms: Patient Portal/API
[2023-04-22 10:14] LABS: Add Manual Diff / Slide Review NO; Basophils Absolute Auto 0 /uL (0-100); Basophils Percent Auto 0.6 % (0-2); Eosinophils Absolute Auto 0 /uL (0-450); Eosinophils Percent Auto 0.2 % (2-4); Hemoglobin 13.9 g/dL (12.0-16.0); Lymphocytes Absolute Auto 500 /uL (1100-4500); Lymphocytes Percent Auto 5.6 % (25-40); Mean Corpuscular Hemoglobin 32.1 PG (26-34); Mean Corpuscular Volume 94.6 fL (80-100); Monocytes Absolute Auto 600 /uL (0-900); Monocytes Percent Auto 7.5 % (3-14); Neutrophils Absolute Auto 7300 /uL (1500-7000); Neutrophils Percent Auto 86.1 % (50-75); Platelet Count 366 X10^3/uL (150-400); Red Blood Cell Count 4.34 X10^6/uL (4.0-5.2); Red Cell Distribution Width 14.1 % (11.6-14.8); White Blood Cell Count 8.4 X10^3/uL (4.5-11.0)
[2023-04-22 10:16] LABS: INR 1.1 (0.9-1.3); Prothrombin Time 12.4 SECONDS (9.4-12.5)
[2023-04-22 10:19] LABS: PTT Partial Thromboplastin Tim 30 SECONDS (25.1-36.5)
[2023-04-22 10:24] LABS: Alanine Aminotransferase 22 IU/L (<35); Albumin 4.7 g/dL (3.5-5.0); Albumin Globulin Ratio 1.6 (1.0-2.8); Alkaline Phosphatase 86 U/L (38-126); Aspartate Aminotransferase 36 IU/L (14-36); BUN Creatinine Ratio 13.9 (6-22); Bilirubin Total 0.6 mg/dL (0.2-1.3); Blood Urea Nitrogen 15 mg/dL (7-17); Calcium 9.5 mg/dL (8.4-10.2); Carbon Dioxide 25 mmol/L (22-32); Chloride 96 mmol/L (98-107); Creatine Kinase 216 U/L (30-135); Estimated Glomerular Filt Rate 51 mL/min (>60); Globulin 2.9 g/dL (1.7-4.1); Glucose 116 mg/dL (80-110); HEMOLYSIS 20 (0-50); Lipase 72 U/L (23-300); Magnesium 1.8 mg/dL (1.6-2.3); Potassium 3.2 mmol/L (3.4-5.1); Sodium 133 mmol/L (137-145); Total Protein 7.6 g/dL (6.3-8.2)
[2023-04-22 10:34] LABS: Troponin I 0.035 ng/mL (0.01-0.034)
[2023-04-22] MEDS: SODIUM CHLORIDE 0.9% 1,000 ML 1000 ML IV (10:52)
[2023-04-22] MEDS: POTASSIUM CHLORIDE 20 MEQ TAB 40 MEQ PO (11:46)
--- NOTE | 2023-04-22 12:21 | PC.NURSE ---
[employer] note assisted pt. from bathroom back to pt. room, gave a warm blanket around pt. shoulders and reattached bp cuff, pulse ox, and leads to pt. notified [facility]O jeter, pt. needed to be reattached to fluids. left pt. call light within reach, daughter at bedside.
[2023-04-22 12:22] LABS: Troponin I 0.027 ng/mL (0.01-0.034)
== END 2023-04-22 12:58 | disposition home or self-care (01) ==
PROVIDERS: Emergency Provider Emergency Medicine; PCP Family Medicine
DX: R55 Syncope and collapse (principal); R51.9 Headache, unspecified
CPT/HCPCS: 36415; 70450; 70496; 70498; 71045; 80053; 81003; 82550; 83690; 83735; 84484; 85025; 85610; 85730; 93005; 93010; 99284; Q9967

== ENCOUNTER → 2023-07-18 12:53 | Outpatient (CLI) | payer OTHER, SELFPAY ==
[2023-07-18 13:48] LABS: BUN Creatinine Ratio 13.7 (6-22); Blood Urea Nitrogen 14 mg/dL (7-17); Calcium 8.9 mg/dL (8.4-10.2); Carbon Dioxide 26 mmol/L (22-32); Chloride 88 mmol/L (98-107); Estimated Glomerular Filt Rate 54 mL/min (>60); Glucose 129 mg/dL (80-110); HEMOLYSIS < 15 (0-50); Potassium 3.7 mmol/L (3.4-5.1); Sodium 123 mmol/L (137-145)
== END ==
PROVIDERS: PCP Family Medicine; Referring Provider Family Medicine; Visit Provider Family Medicine
DX: I10 Essential (primary) hypertension (principal); E87.1 Hypo-osmolality and hyponatremia; E87.6 Hypokalemia
CPT/HCPCS: 36415; 80048

== ENCOUNTER → 2023-08-05 10:58 | Outpatient (CLI) | payer OTHER, SELFPAY ==
[2023-08-05 12:57] LABS: Alanine Aminotransferase 16 IU/L (<35); Albumin 4.1 g/dL (3.5-5.0); Alkaline Phosphatase 71 U/L (38-126); Aspartate Aminotransferase 28 IU/L (14-36); BUN Creatinine Ratio 9.3 (6-22); Bilirubin Total 0.6 mg/dL (0.2-1.3); Blood Urea Nitrogen 10 mg/dL (7-17); Calcium 9.1 mg/dL (8.4-10.2); Carbon Dioxide 25 mmol/L (22-32); Chloride 91 mmol/L (98-107); Estimated Glomerular Filt Rate 51 mL/min (>60); Glucose 137 mg/dL (80-110); HEMOLYSIS < 15 (0-50); Sodium 125 mmol/L (137-145); Total Protein 6.6 g/dL (6.3-8.2)
[2023-08-05 12:58] LABS: Albumin Globulin Ratio 1.6 (1.0-2.8); Globulin 2.5 g/dL (1.7-4.1)
== END ==
PROVIDERS: PCP Family Medicine; Referring Provider Family Medicine; Visit Provider Family Medicine
DX: I10 Essential (primary) hypertension (principal); E87.1 Hypo-osmolality and hyponatremia; R60.0 Localized edema
CPT/HCPCS: 36415; 80053

== ENCOUNTER 2023-08-17 13:00 | Emergency (ER) | payer OTHER, SELFPAY ==
[2023-08-17] VITALS (7 sets, daily range): BP systolic 140–196; BP diastolic 84–94; PULSE 71–86; RESP 18; TEMP 36.8; O2SAT 92–99; BMI 20.9
[2023-08-17 13:41] LABS: Add Manual Diff / Slide Review NO; Basophils Absolute Auto 0 /uL (0-100); Basophils Percent Auto 0.5 % (0-2); Eosinophils Absolute Auto 0 /uL (0-450); Eosinophils Percent Auto 0.2 % (2-4); Hematocrit 38.7 % (36-46); Lymphocytes Absolute Auto 600 /uL (1100-4500); Mean Corpuscular HGB Conc 33.7 % (30-36); Mean Corpuscular Hemoglobin 32.4 PG (26-34); Mean Corpuscular Volume 95.9 fL (80-100); Monocytes Absolute Auto 600 /uL (0-900); Monocytes Percent Auto 7.8 % (3-14); Neutrophils Absolute Auto 6000 /uL (1500-7000); Neutrophils Percent Auto 83.5 % (50-75); Platelet Count 403 X10^3/uL (150-400); Red Blood Cell Count 4.03 X10^6/uL (4.0-5.2); Red Cell Distribution Width 14.2 % (11.6-14.8); White Blood Cell Count 7.2 X10^3/uL (4.5-11.0)
--- NOTE | 2023-08-17 13:43 | ED.ABDPAIN ---
HPI - Abdominal Pain General Chief Complaint: Abdominal Pain Stated Complaint: stomach issues per pt son Time Seen by Provider: 08/17/23 13:32 Source: patient and family Mode of arrival: Ambulatory History of Present Illness HPI narrative: Patient is a 82-year-old female history of dementia, chronic kidney disease, GERD, hyperlipidemia, anemia lives with her son presenting today with abdominal pain. Son reports that difficult to tell with the last couple of days she seems to be complaining of some abdominal pain. She had 2 normal bowel movements this morning maybe a little diarrhea. No nausea or vomiting. No worsening confusion. The patient denies any chest pain or palpitations. She is able to answer some questions but she has not quite sure why she is here today. She overall appears well and without distress. Related Data Previous Rx's Medication Instructions Recorded cyanocobalamin (vitamin B-12) 1,000 mcg PO DAILY #90 caps 08/15/20 1,000 mcg capsule ferrous sulfate 325 mg (65 mg 325 mg PO BID #180 tabs 08/15/20 iron) tablet (Feosol) simvastatin 20 mg tablet See Rx Instructions .Route 12/13/22 .COMPLEX #90 tabs donepezil 10 mg tablet 10 mg PO DAILY #90 tabs 04/18/23 nystatin 100,000 unit/gram topical 1 applic topical BID #30 grams 04/23/23 cream diclofenac sodium 1 % topical gel 2 g topical QID #100 grams 05/08/23 citalopram 10 mg tablet 10 mg PO DAILY #30 tabs 05/16/23 levothyroxine 88 mcg tablet 88 mcg PO DAILY #90 tabs 06/27/23 (Synthroid) omeprazole 40 mg capsule,delayed 40 mg PO BID #180 caps 07/17/23 release furosemide 20 mg tablet 20 mg PO DAILY #14 tabs 07/23/23 lisinopril 20 mg tablet 20 mg PO DAILY #90 tabs 07/23/23 Allergies Allergy/AdvReac Type Severity Reaction Status Date / Time Penicillins [PENICILLINS] Allergy Unknown CHILDHOOD Verified 08/17/23 13:09 Patient History Medical History Toe pain, right Peripheral vascular disease Hypothyroidism (07/15/02) Skin cancer Easy bruisability GERD (gastroesophageal reflux disease) CKD (chronic kidney disease) stage 3, GFR 30-59 ml/min Breast cancer, right Mass of right breast Dizziness on standing Positive FIT (fecal immunochemical test) Frequent UTI Anemia Hyperlipemia Symptomatic anemia Vaginal irritation Vaginal candidiasis Surgical History Hx of endarterectomy (1989) History of esophagogastroduodenoscopy (EGD) (04/2020) Hx of hand surgery (09/2015) Status post colonoscopy Status post hysterectomy Status post arthroscopy Status post appendectomy History of tonsillectomy Family History Father Diabetes mellitus Hypertension Heart disease Mother Hypertension Alzheimer's disease Social History marital status: unknown household members: family Smoking Status: Former smoker alcohol intake: current substance use type: does not use Smoking Status: Former smoker alcohol intake frequency: 0-2 drinks per day Substance Use Type: does not use Exam Initial Vital Signs Initial Vital Signs: Vital Signs Temperature 98.2 F 08/17/23 13:10 Pulse Rate 77 08/17/23 13:10 Respiratory Rate 18 08/17/23 13:10 Blood Pressure 196/84 H 08/17/23 13:10 Pulse Oximetry 99 08/17/23 13:10 Oxygen Delivery Method Room Air 08/17/23 13:10 GENERAL: Alert pleasant 82-year-old female and in no acute distress. HEENT: Head atraumatic,EOMI, pupils reactive, face symmetric, moist mucous membranes CARDIOVASCULAR: Regular rate and rhythm without murmurs, rubs or gallops. RESPIRATORY: Breath sounds equal bilaterally, no wheezes rales or rhonchi. ABDOMEN: Soft, nontender. Normoactive bowel sounds all 4 quadrants. No guarding or rebound. EXTREMITIES: Normal range of motion, no clubbing or edema. Neurovascularly intact NEUROLOGICAL: Moving all extremities no gross abnormalities SKIN: Warm, dry, no laceration, no petechiae, no rashes or lesions. Course Orders Ordered: ED Orders 08/17/23 13:20 EKG-12 Lead Stat 08/17/23 13:35 Complete Blood Count AUTO DIFF Stat Comprehensive Metabolic Panel Stat Lipase Stat 08/17/23 13:54 CT abdomen pelvis w con Stat Discontinued Medications Ondansetron HCl (Ondansetron 4 Mg Odt) 4 mg PO NOW PRN PRN Reason: Nausea And Vomiting Ondansetron HCl (Ondansetron 4 Mg/2 Ml Inj) 4 mg IV NOW PRN PRN Reason: Nausea And Vomiting Pantoprazole Sodium (Pantoprazole 40 Mg Vial) 40 mg IV NOW ONE Stop: 08/17/23 13:57 Last Admin: 08/17/23 14:43 Dose: 40 mg Documented By: AMY Vital Signs Vital signs: Vital Signs - 8 hr 08/17/23 13:10 08/17/23 13:43 08/17/23 13:45 Temperature 98.2 F Pulse Rate 77 71 Respiratory Rate 18 Blood Pressure 196/84 H 142/87 H Pulse Oximetry 99 Oxygen Delivery Method Room Air 08/17/23 13:45 08/17/23 14:00 08/17/23 14:00 Temperature Pulse Rate 79 75 Respiratory Rate Blood Pressure 140/94 H Pulse Oximetry 92 Oxygen Delivery Method Room Air 08/17/23 14:32 08/17/23 15:00 08/17/23 15:37 Temperature Pulse Rate 83 86 76 Respiratory Rate Blood Pressure Pulse Oximetry 92 94 93 Oxygen Delivery Method Room Air Room Air Room Air MDM - Abdominal Pain Lab Data 08/17/23 13:35 08/17/23 13:35 Labs: Lab Results 08/17/23 Range/Units 13:35 WBC 7.2 (4.5-11.0) X10^3/uL RBC 4.03 (4.0-5.2) X10^6/uL Hgb 13.0 (12.0-16.0) g/dL Hct 38.7 (36-46) % MCV 95.9 (80-100) fL MCH 32.4 (26-34) PG MCHC 33.7 (30-36) % RDW 14.2 (11.6-14.8) % Plt Count 403 H (150-400) X10^3/uL Neut % (Auto) 83.5 H (50-75) % Lymph % (Auto) 8.0 L (25-40) % Hickman % (Auto) 7.8 (3-14) % Eos % (Auto) 0.2 L (2-4) % Baso % (Auto) 0.5 (0-2) % Neut # (Auto) 6000 (4630-9077) /uL Lymph # (Auto) 600 L (8123-1559) /uL Hickman # (Auto) 600 (0-900) /uL Eos # (Auto) 0 (0-450) /uL Baso # (Auto) 0 (0-100) /uL Sodium 128 L (137-145) mmol/L Potassium 4.2 (3.4-5.1) mmol/L Chloride 99 (98-107) mmol/L Carbon Dioxide 22 (22-32) mmol/L BUN 14 (7-17) mg/dL Creatinine 0.91 (0.52-1.04) mg/dL Estimated GFR > 60 (>60) mL/min BUN/Creatinine Ratio 15.4 (6-22) Glucose 112 H (80-110) mg/dL Calcium 9.3 (8.4-10.2) mg/dL Total Bilirubin 0.5 (0.2-1.3) mg/dL AST 30 (14-36) IU/L ALT 17 (<35) IU/L Alkaline Phosphatase 73 (38-126) U/L Total Protein 7.2 (6.3-8.2) g/dL Albumin 4.3 (3.5-5.0) g/dL Globulin 2.9 (1.7-4.1) g/dL Albumin/Globulin Ratio 1.5 (1.0-2.8) Lipase 102 (23-300) U/L Imaging Data CT scan - abdomen/pelvis: Radiologist's Impression: PROCEDURE: CT ABDOMEN PELVIS W CON INDICATIONS: stomach pain TECHNIQUE: After the administration of intravenous contrast, axial sections acquired from the lung bases to the pubic symphysis. Coronal and sagittal reformats were performed. For radiation dose reduction, the following was used: automated exposure control, adjustment of mA and/or kV according to patient size. COMPARISON: [facility], CT, CT HEAD/BRAIN WO CON, 04/22/2023, 10:01. [facility], CT, CT ABDOMEN PELVIS W CON, 04/20/2023, 7:37. FINDINGS: Image quality: Multiple images are limited by motion artifact, particularly in the upper abdomen Lower thorax: The lung bases are clear. Heart size normal. No hiatal hernia. Liver: Normal in size and attenuation. No contour deformity present. Biliary system: No calcified cholelithiasis or pericholecystic inflammation. No intra or extrahepatic bile duct dilatation. Pancreas: Unremarkable without mass or inflammation evident. Spleen: Course splenic calcification remains unchanged from the prior exam Adrenals: Normal morphology and density. Reproductive system: Hysterectomy. Urinary system: Normal renal size and attenuation. No renal calculi, hydronephrosis, or solid mass present. Urinary bladder unremarkable. Gastrointestinal system: The bowel is unremarkable without evidence of bowel obstruction or inflammation. The stomach appears unremarkable. Multiple diverticula arise from the sigmoid colon without evidence of diverticulitis. Appendix: No findings to suggest acute appendicitis. Peritoneal spaces: No mesenteric or retroperitoneal adenopathy. No free air. No free fluid. Vasculature: Aortic atherosclerotic vascular calcification noted without evidence of aneurysm. Abdominal wall: Abdominal wall intact without evidence of ventral or inguinal hernias. Musculoskeletal: Normal bone mineralization. Degenerative disc disease and arthropathy noted in lower lumbar spine. No acute fractures. Left iliac bone cortical and trabecular thickening with cotton wool appearance remains stable from the prior IMPRESSION: 1. No acute CT findings in the abdomen and pelvis. 2. 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 on 08/17/2023 at 14:05 MDM Narrative Medical decision making narrative: Patient 82-year-old female history of dementia chronic kidney disease presenting today with abdominal pain. On exam she overall appears well with minimal pain. Blood work has been reviewed no clinical abnormalities, sodium today is 128 baseline looks like it is 123-125 so that has improved creatinine CT does not show any abnormality Patient is not requiring anything for pain at this time she was given dose of Protonix in the ED. patient is ambulatory in the ED she overall appears comfortable abdomen remained soft and nontender. Family states that she has really not eating much which maybe causing some gastric like pain. At this time pain she would and family would like to go home which is reasonable. Discharge Plan Departure Patient Disposition: Home Clinical Impression: Abdominal pain Instructions: DI for Abdominal Pain-Adult Activity Restrictions/Additional Instructions: *You have been diagnosed with abdominal pain *What to do: At this time no cause of abdominal pain is found. Blood work is overall reassuring CT did not show any acute abnormalities *Continue to take medications as directed Tylenol as needed for pain *Follow up with your primary care provider in 2-3 days or call [phone] *Return to ER if you should have increasing pain confusion nausea vomiting or any new, worsening or concerning symptoms Prescriptions: No Action diclofenac sodium 1 % gel 2 g topical QID Qty: 100 1RF Rx Instructions: apply to single elbow, wrist or hand; for hand includes palm/fingers/back of hand furosemide 20 mg tablet 20 mg PO DAILY Qty: 14 0RF simvastatin 20 mg tablet See Rx Instructions .ROUTE .COMPLEX Qty: 90 3RF Dose Instruction: TAKE 1 TABLET BY MOUTH DAILY FOR LIPIDS/ CHOLESTEROL Rx Instructions: TAKE 1 TABLET BY MOUTH DAILY FOR LIPIDS/ CHOLESTEROL donepezil 10 mg tablet 10 mg PO DAILY Qty: 90 0RF nystatin 100,000 unit/gram cream 1 applic topical BID Qty: 30 0RF Rx Instructions: Apply twice daily for 7-10 days. If not improved, please return to clinic or primary care. Keep the area clean and dry. citalopram 10 mg tablet 10 mg PO DAILY Qty: 30 0RF levothyroxine [Synthroid] 88 mcg tablet 88 mcg PO DAILY Qty: 90 1RF Rx Instructions: Take 1 tab on an empty stomach daily, name brand only omeprazole 40 mg capsule,delayed release(DR/EC) 40 mg PO BID Qty: 180 1RF lisinopril 20 mg tablet 20 mg PO DAILY Qty: 90 1RF cyanocobalamin (vitamin B-12) 1,000 mcg capsule 1,000 mcg PO DAILY Qty: 90 3RF Patient Comments: patient unsure Rx Instructions: Take 1 tablet by mouth daily ferrous sulfate [Feosol] 325 mg (65 mg iron) tablet 325 mg PO BID Qty: 180 3RF Patient Comments: patient unsure Rx Instructions: Take 1 tablet by mouth twice daily. Referrals: Mike Javed MD [Primary Care Provider] - Stand Alone Forms: Patient Portal/API
--- NOTE | 2023-08-17 13:54 | DI.CT.S_ITS ---
PROCEDURE: CT ABDOMEN PELVIS W CON INDICATIONS: stomach pain TECHNIQUE: After the administration of intravenous contrast, axial sections acquired from the lung bases to the pubic symphysis. Coronal and sagittal reformats were performed. For radiation dose reduction, the following was used: automated exposure control, adjustment of mA and/or kV according to patient size. COMPARISON: [facility], CT, CT HEAD/BRAIN WO CON, 04/22/2023, 10:01. [facility], CT, CT ABDOMEN PELVIS W CON, 04/20/2023, 7:37. FINDINGS: Image quality: Multiple images are limited by motion artifact, particularly in the upper abdomen Lower thorax: The lung bases are clear. Heart size normal. No hiatal hernia. Liver: Normal in size and attenuation. No contour deformity present. Biliary system: No calcified cholelithiasis or pericholecystic inflammation. No intra or extrahepatic bile duct dilatation. Pancreas: Unremarkable without mass or inflammation evident. Spleen: Course splenic calcification remains unchanged from the prior exam Adrenals: Normal morphology and density. Reproductive system: Hysterectomy. Urinary system: Normal renal size and attenuation. No renal calculi, hydronephrosis, or solid mass present. Urinary bladder unremarkable. Gastrointestinal system: The bowel is unremarkable without evidence of bowel obstruction or inflammation. The stomach appears unremarkable. Multiple diverticula arise from the sigmoid colon without evidence of diverticulitis. Appendix: No findings to suggest acute appendicitis. Peritoneal spaces: No mesenteric or retroperitoneal adenopathy. No free air. No free fluid. Vasculature: Aortic atherosclerotic vascular calcification noted without evidence of aneurysm. Abdominal wall: Abdominal wall intact without evidence of ventral or inguinal hernias. Musculoskeletal: Normal bone mineralization. Degenerative disc disease and arthropathy noted in lower lumbar spine. No acute fractures. Left iliac bone cortical and trabecular thickening with cotton wool appearance remains stable from the prior IMPRESSION: 1. No acute CT findings in the abdomen and pelvis. 2. 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 on 08/17/2023 at 14:05
[2023-08-17 14:01] LABS: Alanine Aminotransferase 17 IU/L (<35); Albumin 4.3 g/dL (3.5-5.0); Albumin Globulin Ratio 1.5 (1.0-2.8); Alkaline Phosphatase 73 U/L (38-126); Aspartate Aminotransferase 30 IU/L (14-36); BUN Creatinine Ratio 15.4 (6-22); Bilirubin Total 0.5 mg/dL (0.2-1.3); Blood Urea Nitrogen 14 mg/dL (7-17); Calcium 9.3 mg/dL (8.4-10.2); Carbon Dioxide 22 mmol/L (22-32); Chloride 99 mmol/L (98-107); Estimated Glomerular Filt Rate > 60 mL/min (>60); Globulin 2.9 g/dL (1.7-4.1); Glucose 112 mg/dL (80-110); HEMOLYSIS 33 (0-50); Lipase 102 U/L (23-300); Potassium 4.2 mmol/L (3.4-5.1); Sodium 128 mmol/L (137-145); Total Protein 7.2 g/dL (6.3-8.2)
[2023-08-17] MEDS: PANTOPRAZOLE 40 MG VIAL IV (14:43)
== END 2023-08-17 16:06 | disposition home or self-care (01) ==
PROVIDERS: Emergency Provider Emergency Medicine; PCP Family Medicine
DX: R10.9 Unspecified abdominal pain (principal); Z79.899 Other long term (current) drug therapy
CPT/HCPCS: 36415; 74177; 80053; 83690; 85025; 96374; 99284; C9113; Q9967